=== PATIENT | male | born 1955 | race Caucasian/White ===

== ENCOUNTER 2021-09-21 00:31 | Day surgery (SDC) | payer MEDICARE, SELFPAY ==
[2021-09-01 13:59] VITALS: BMI 25.7
[2021-09-21 09:01] VITALS: BP 134/73; PULSE 68; RESP 16; TEMP 36.6; O2SAT 98; BMI 24.4
[2021-09-21] MEDS: LACTATED RINGERS 1,000 ML 150 ML IV CONT (09:13)
[2021-09-21 09:14] LABS: Glucose Point of Care 112 mg/dl (65-105)
--- NOTE | 2021-09-21 09:20 | WPDANESEPPF ---
Anes - Initial Pre Proc Eval Procedure: Operation Date: 09/21/21 09:30 Proposed Procedures p Esophagogastroduodenoscopy - Negro Baird MD Date/Time: 09/21/21 09:20 Surgeon: Negro Baird MD Pre Op Diagnosis: anemia, todd's esophagus Patient Data Age: 65 Gender: M Height: 1.83 m Weight: 81.8 kg Last Vital Signs Temp 36.6 C 09/21/21 09:01 Pulse 68 09/21/21 09:01 Resp 16 09/21/21 09:01 BP 134/73 09/21/21 09:01 Pulse Ox 98 09/21/21 09:01 Allergies Allergy/AdvReac Type Severity Reaction Status Date / Time No Known Allergies Allergy Verified 09/01/21 13:54 Home Medications Medication Instructions Recorded Confirmed Type aspirin 81 mg tablet,delayed 81 mg PO DAILY #90 tablet 04/14/20 09/01/21 Rx release metformin 500 mg tablet,extended 1,000 mg PO BID #180 tablet 05/10/21 09/01/21 Rx release 24 hr amlodipine 5 mg tablet 5 mg PO DAILY #90 tablet 07/11/21 09/01/21 Rx azelastine 137 mcg (0.1 %) nasal 2 spray NASAL Q12H #90 ml 07/11/21 09/01/21 Rx spray aerosol cholecalciferol (vitamin D3) 25 1,000 unit PO DAILY #90 cap 07/11/21 09/01/21 Rx mcg (1,000 unit) capsule cyanocobalamin (vitamin B-12) 1,000 mcg PO DAILY #90 tablet 07/11/21 09/01/21 Rx 1,000 mcg tablet metoprolol tartrate 50 mg tablet 50 mg PO Q12H #180 tablet 07/11/21 09/01/21 Rx nitroglycerin 0.4 mg sublingual 0.4 mg SUBLINGUAL Q5M PRN #90 07/11/21 09/01/21 Rx tablet tablet pantoprazole 40 mg tablet,delayed 40 mg PO QAM #90 tablet 07/11/21 09/01/21 Rx release ramipril 10 mg capsule 20 mg PO DAILY #180 cap 07/11/21 09/01/21 Rx rosuvastatin 10 mg tablet 10 mg PO DAILY #90 tablet 07/11/21 09/01/21 Rx potassium citrate 10 mEq (1,080 10 meq PO DAILY #100 tablet 07/12/21 09/01/21 Rx mg) tablet,extended release Laboratory Tests 09/21/21 09:11 POC Capillary Glucose 112 mg/dl H mg/dl (65-105) Patient hx anesthesia problems: none Family hx anesthesia problems: none Results Review: All pre-operative results and documents have been reviewed as part of the pre-operative evaluation. 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 angina Elevated PSA, less than 10 ng/ml Essential (primary) hypertension Mixed hyperlipidemia Nocturia Right lateral epicondylitis Seasonal allergic rhinitis Type 2 diabetes mellitus without complication, without long-term current use of insulin Family History Family History (Updated 03/03/19 @ 11:20 by DOCTOR UNKNOWN) Sibling Family history of malignant neoplasm, Onset Age: 43 Mother Family history of congestive heart failure, Onset Age: 78 Social History Social History (Updated 08/23/21 @ 15:08 by Yue Luna MA) Smoking status: Never smoker Alcohol intake: current Substance use: never Substance use type: does not use Living arrangements: with family Spiritual care concerns: No Anes - Eval Final PreProcedure Day of Procedure 09/21/21 09:20 Patient weight: normal Heart: regular rate and rhythm Lungs: clear to auscultation and normal air movement Airway: Mallampati scale class II Neurological: alert and oriented Last oral intake: >/= 8 hours ASA classification: III Emergent: no Anesthetic plan: proceed Anesthesia type and monitoring: general GIVS Results Review: All pre-operative results and documents have been reviewed as part of the pre-operative evaluation. Informed Consent: The patient's anesthetic plan and its attendant risks and benefits were discussed with the patient/family/POA. Questions were solicited and answers provided to the satisfaction of the patient/family/POA.
--- NOTE | 2021-09-21 09:22 | WPDGICN ---
Assessment and Plan Assessment and plan (1) Mcoky's esophagus: Code(s): K22.70 - Mckoy's esophagus without dysplasia Status: Acute Assessment and Plan: Mckoy's esophagus identified. Patient has no symptoms no dysphagia or heartburn currently. Plan to continue PPI therapy long-term. Surveillance EGD today and is advised at 3 year intervals. Further recommendations will be given after endoscopy. Previous endoscopies have revealed no dysplasia. GI Consult Note Consult date/time: 09/21/21 09:22 HPI: Alexey Gibbs is a 65 year old male Presents for surveillance EGD. Patient known to have Mckoy's esophagus. Is been 3 years since last exam. Patient's current weight appetite bowel movements are normal. He is able to eat without hindrance. He has no heartburn. He is currently maintained on PPI and has maintains anti-reflux measures. Presents today for screening EGD because of history of Mckoy's esophagus. Review of Systems Review of Systems: All systems reviewed & are unremarkable except as noted in HPI and below PMFSH Past Medical History Medical History (Updated 09/21/21 @ 09:23 by Negro Baird MD) Anemia Basal cell carcinoma, face (~08/23/21) 1.3 cm left face present for several months BMI 23.0-23.9, adult CAD of autologous artery bypass graft without angina Elevated PSA, less than 10 ng/ml Essential (primary) hypertension Mixed hyperlipidemia Nocturia Right lateral epicondylitis Seasonal allergic rhinitis Type 2 diabetes mellitus without complication, without long-term current use of insulin Family History Family History (Updated 03/03/19 @ 11:20 by DOCTOR UNKNOWN) Sibling Family history of malignant neoplasm, Onset Age: 43 Mother Family history of congestive heart failure, Onset Age: 78 Social History Social History (Updated 08/23/21 @ 15:08 by Yue Luna MA) Smoking status: Never smoker Alcohol intake: current Substance use: never Substance use type: does not use Living arrangements: with family Spiritual care concerns: No Meds Home Medications and Allergies Home Medications Medication Instructions Recorded Confirmed Type aspirin 81 mg tablet,delayed 81 mg PO DAILY #90 tablet 04/14/20 09/01/21 Rx release metformin 500 mg tablet,extended 1,000 mg PO BID #180 tablet 05/10/21 09/01/21 Rx release 24 hr amlodipine 5 mg tablet 5 mg PO DAILY #90 tablet 07/11/21 09/01/21 Rx azelastine 137 mcg (0.1 %) nasal 2 spray NASAL Q12H #90 ml 07/11/21 09/01/21 Rx spray aerosol cholecalciferol (vitamin D3) 25 1,000 unit PO DAILY #90 cap 07/11/21 09/01/21 Rx mcg (1,000 unit) capsule cyanocobalamin (vitamin B-12) 1,000 mcg PO DAILY #90 tablet 07/11/21 09/01/21 Rx 1,000 mcg tablet metoprolol tartrate 50 mg tablet 50 mg PO Q12H #180 tablet 07/11/21 09/01/21 Rx nitroglycerin 0.4 mg sublingual 0.4 mg SUBLINGUAL Q5M PRN #90 07/11/21 09/01/21 Rx tablet tablet pantoprazole 40 mg tablet,delayed 40 mg PO QAM #90 tablet 07/11/21 09/01/21 Rx release ramipril 10 mg capsule 20 mg PO DAILY #180 cap 07/11/21 09/01/21 Rx rosuvastatin 10 mg tablet 10 mg PO DAILY #90 tablet 07/11/21 09/01/21 Rx potassium citrate 10 mEq (1,080 10 meq PO DAILY #100 tablet 07/12/21 09/01/21 Rx mg) tablet,extended release Allergies Allergy/AdvReac Type Severity Reaction Status Date / Time No Known Allergies Allergy Verified 09/01/21 13:54 Vital Signs Vital Signs - 24 hr 09/21/21 09:01 Temperature 97.9 F Pulse Rate 68 Respiratory Rate 16 Blood Pressure 134/73 Pulse Oximetry 98 Exam Narrative: Physical exam reveals patient be alert. Vital signs stable. HEENT exam is unremarkable. Patient is anicteric. Lungs are clear to auscultation and percussion. Heart is without murmur or extra sounds. Abdomen bowel sounds are present soft nontender with no organomegaly.
[2021-09-21 09:43] VITALS: BP 103/64; PULSE 60; RESP 14; O2SAT 99
[2021-09-21 09:53] VITALS: BP 112/72; PULSE 61; RESP 15; O2SAT 100
[2021-09-21 10:03] VITALS: BP 117/74; PULSE 55; RESP 12; O2SAT 100
== END 2021-09-21 10:16 | disposition home or self-care (01) ==
PROVIDERS: PCP Family Medicine; Visit Provider Internal Medicine Gastroenterology
PROC: 0DJ08ZZ Inspection of Upper Intestinal Tract, Via Natural or Artificial Opening Endoscopic (ICD-10-PCS; CPT 43235; principal; 2021-09-21 09:30)
DX: K22.70 Barrett's esophagus without dysplasia (principal); D64.9 Anemia, unspecified; I10 Essential (primary) hypertension; E78.2 Mixed hyperlipidemia; E11.9 Type 2 diabetes mellitus without complications; I25.810 Atherosclerosis of coronary artery bypass graft(s) without angina pectoris; Z79.82 Long term (current) use of aspirin; Z79.84 Long term (current) use of oral hypoglycemic drugs
CPT/HCPCS: 43239; 82948; 88305; J2704; J7120

== ENCOUNTER 2024-11-02 00:33 | Day surgery (SDC) | payer MEDICARE, SELFPAY ==
[2024-10-20 15:01] VITALS: BMI 25.4
[2024-11-02 06:50] VITALS: BP 137/66; PULSE 65; RESP 18; TEMP 36.1; O2SAT 97
--- NOTE | 2024-11-02 06:53 | P.PNAN_ITS ---
Anes - Initial Pre Proc Eval Procedure: Operation Date: 11/02/24 08:00 Proposed Procedures p Esophagogastroduodenoscopy - Thaddeus Garcia MD Date/Time: 11/02/24 06:53 Surgeon: Thaddeus Garcia MD Pre Op Diagnosis: Mckoy's esophagus w/o dysplasia Patient Data Age: 69 Gender: M Height: 1.83 m Weight: 84.5 kg Last Vital Signs Temp 36.1 C L 11/02/24 06:50 Pulse 65 11/02/24 06:50 Resp 18 11/02/24 06:50 BP 137/66 11/02/24 06:50 Pulse Ox 97 11/02/24 06:50 O2 Del Method Room Air 11/02/24 06:50 Allergies Allergy/AdvReac Type Severity Reaction Status Date / Time No Known Allergies Allergy Verified 11/02/24 06:47 Home Medications ?Medication ?Instructions ?Recorded ?Confirmed ?Type aspirin 81 mg tablet,delayed 81 mg PO DAILY #90 tabs 04/14/20 11/02/24 Rx release (Adult Low Dose Aspirin) cyanocobalamin (vitamin B-12) 1,000 mcg PO DAILY #90 tabs 07/11/21 11/02/24 Rx 1,000 mcg tablet nitroglycerin 0.4 mg sublingual 0.4 mg sublingual Q5M PRN chest 07/11/21 10/21/24 Rx tablet pain #90 tabs rosuvastatin 20 mg tablet 20 mg PO DAILY 06/18/22 11/02/24 History cholecalciferol (vitamin D3) 125 5,000 unit PO DAILY #90 caps 02/27/23 11/02/24 Rx mcg (5,000 unit) capsule finasteride 5 mg tablet 5 mg PO DAILY 09/11/23 11/02/24 History metoprolol tartrate 50 mg tablet 50 mg PO Q12H #180 tabs 09/30/23 11/02/24 Rx metformin 500 mg tablet,extended 1,000 mg (2 x 500 mg) PO BID #360 01/06/24 11/02/24 Rx release 24 hr tabs potassium citrate 10 mEq (1,080 10 meq PO DAILY #90 tabs 02/03/24 11/02/24 Rx mg) tablet,extended release amlodipine 5 mg tablet 5 mg PO DAILY #90 tabs 05/04/24 11/02/24 Rx azelastine 137 mcg (0.1 %) nasal 2 spray intranasal Q12H #90 mL 05/04/24 11/02/24 Rx spray pantoprazole 40 mg tablet,delayed 40 mg PO QAM #90 tabs 05/04/24 11/02/24 Rx release ramipril 10 mg capsule 10 mg PO BID #180 caps 10/21/24 11/02/24 Rx Patient hx anesthesia problems: none Family hx anesthesia problems: none Results Review: All pre-operative results and documents have been reviewed as part of the pre- operative evaluation. [facility] Past Medical History Medical History (Updated 10/21/24 @ 14:56 by John Lozoya MD) Actinic keratosis BMI 26.0-26.9,adult Overweight (BMI 25.0-29.9) At low risk for fall Encounter for hepatitis C screening test for low risk patient (09/05/23) hepatitis C screening was 09/05/23. BMI 24.0-24.9, adult Acute non-recurrent maxillary sinusitis (08/16/22) Prostate cancer (~02/2022) Robotic assisted prostatectomy 05/01/2022. PSA 0.14 on 05/25/2024. Iron deficiency anemia, unspecified iron 47 with 15% saturation and ferritin 31 on 02/19/2022 with hemoglobin 12.8. Repeat labs on 06/19/2022 with hemoglobin 12.2, iron 88 with 32% saturation and ferritin 41. Return 74, 25% saturation, ferritin 31 and hem oglobin 12.7 on 08/28/2022. Iron 57 with 20% saturation and ferritin 31 with hemoglobin 12.5 on 02/21/2023.Iron 70 with 24% saturation and ferritin 22 on 09/05/2023. Iron 63 with 19% saturation and ferritin 25 with hemoglobin 12.7 on 10/08/2024. Squamous cell carcinoma of skin of left cheek (~08/24/21) 1.3 cm ulcerated lesion present for several months left face with punch biopsy 08/25/2021 and excision with clear margins 09/26/[address] Cantu Mckoy's esophagus BMI 23.0-23.9, adult Anemia Hemoglobin 12.8, iron 47, 15% saturation, ferritin 31, vitamin B12 1444, folic acid 18.6 on 02/19/2022. Hemoglobin 12.7 on 08/28/2022 with vitamin B12 1444, folic acid 18.6. Hemoglobin 12.5 on 02/21/2023 with iron 57 with 20% saturation and ferritin 31 with folic acid 12.0. Hemoglobin 12.5 09/05/2023. Hemoglobin 12.5 on 03/12/2024. Hemoglobin 12.7 with vitamin B12 1585 and folic acid 15.6 on 10/08/2024. 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 Tota l cholesterol 122, HDL 44, triglycerides 78, LDL 44 on 08/28/2022. Total cholesterol 121, triglycerides 85, HDL 40, LDL 46 with ratio 3.1 on 12/26/2022. Cholesterol 121, HDL 41, triglycerides 61, LDL 66 On 02/21/2023. Cholesterol 124, HDL 40, triglycerides 102, LDL 65 with ratio 3.1 on 09/05/2023. Cholesterol 107, HDL 41, triglycerides 56, LDL 52 with ratio 2.6 on 03/12/2024. Cholesterol 112, triglycerides 97, HDL 37, LDL 57 with ratio 3.0 on 10/08/2024. Type 2 diabetes mellitus without complication, without long-term current use of insulin Glucose 112 with hemoglobin A1c 6.7 on 02/19/2022. Glucose 114 with hemoglobin A1c 6.8 and urine microalbumin ratio of 11 on 08/28/2022. 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 glucose 118 with hemoglobin A1c 6.7 on 02/21/2023. Glucose 116 with hemoglobin A1c 6.8 and urine microalbumin ratio of 6 on 09/05/2023. fasting glucose 123 with hemoglobin A1c 7.0 on 03/12/2024. Glucose 126, hemoglobin A1c 7.2 with urine microalbumin ratio of 6 and GFR 51 on 10/08/2024. Surgical History Surgical History (Updated 11/02/24 @ 07:12 by Guido Shrestha DO) History of coronary artery stent placement 2008 Hx of CABG 2012 Family History Family History (Updated 03/03/19 @ 11:20 by DOCTOR UNKNOWN) Sibling Family history of malignant neoplasm, Onset Age: 43 Mother Family history of congestive heart failure, Onset Age: 78 Social History Social History Smoking status: Never smoker Alcohol intake: current Alcohol use details: rare Substance use: never Substance use type: does not use Lack of Transportation: No Lack of Food: Never True Current Housing: I Have Housing Concerned About Future Housing: No Difficulty Paying Gas/Electric Bills: No Difficulty Paying for Meds: No Currently Unemployed: No Education: High School Diploma/GED Difficulty w/ Childcare or Family Care: No Living arrangements: with family Spiritual care concerns: No Anes - Eval Final PreProcedure Day of Procedure 11/02/24 06:53 Patient weight: overweight Heart: regular rate and rhythm Lungs: clear to auscultation Airway: Mallampati scale class II Neurological: alert and oriented Last oral intake: >/= 8 hours ASA classification: III Emergent: no Anesthetic plan: proceed Anesthesia type and monitoring: general GIVS and standard monitoring Results Review: All pre-operative results and documents have been reviewed as part of the pre- operative evaluation. Informed Consent: The patient's anesthetic plan and its attendant risks and benefits were discuss ed with the patient/family/POA. Questions were solicited and answers provided to the satisfaction of the patient/family/POA.
[2024-11-02] MEDS: LACTATED RINGERS 1,000 ML 150 ML IV CONT (07:00)
[2024-11-02 07:08] LABS: Glucose Point of Care 113 mg/dl (65-105)
--- NOTE | 2024-11-02 07:30 | PM.IMHP ---
H&P: HPI History of Present Illness Date/Time: 11/02/24 07:30 Chief Complaint: Mckoy's esophagus Narrative: Patient known to have Mckoy's esophagus. Last EGD 3 years ago. Patient's current weight appetite bowel movements are normal. He is currently taking PPIs, has no heartburn or dysphagia. Review of Systems Review of Systems: All systems reviewed & are unremarkable except as noted in HPI and below [facility] Past Medical History Medical History (Updated 10/21/24 @ 14:56 by John Lozoya MD) Actinic keratosis BMI 26.0-26.9,adult Overweight (BMI 25.0-29.9) At low risk for fall Encounter for hepatitis C screening test for low risk patient (09/05/23) hepatitis C screening was 09/05/23. BMI 24.0-24.9, adult Acute non-recurrent maxillary sinusitis (08/16/22) Prostate cancer (~02/2022) Robotic assisted prostatectomy 05/01/2022. PSA 0.14 on 05/25/2024. Iron deficiency anemia, unspecified iron 47 with 15% saturation and ferritin 31 on 02/19/2022 with hemoglobin 12.8. Repeat labs on 06/19/2022 with hemoglobin 12.2, iron 88 with 32% saturation and ferritin 41. Return 74, 25% saturation, ferritin 31 and hemoglobin 12.7 on 08/28/2022. Iron 57 with 20% saturation and ferritin 31 with hemoglobin 12.5 on 02/21/2023.Iron 70 with 24% saturation and ferritin 22 on 09/05/2023. Iron 63 with 19% saturation and ferritin 25 with hemoglobin 12.7 on 10/08/2024. Squamous cell carcinoma of skin of left cheek (~08/24/21) 1.3 cm ulcerated lesion present for several months left face with punch biopsy 08/25/2021 and excision with clear margins 09/26/[address] Cantu Mckoy's esophagus BMI 23.0-23.9, adult Anemia Hemoglobin 12.8, iron 47, 15% saturation, ferritin 31, vitamin B12 1444, folic acid 18.6 on 02/19/2022. Hemoglobin 12.7 on 08/28/2022 with vitamin B12 1444, folic acid 18.6. Hemoglobin 12.5 on 02/21/2023 with iron 57 with 20% saturation and ferritin 31 with folic acid 12.0. Hemoglobin 12.5 09/05/2023. Hemoglobin 12.5 on 03/12/2024. Hemoglobin 12.7 with vitamin B12 1585 and folic acid 15.6 on 10/08/2024. 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 Total cholesterol 122, HDL 44, triglycerides 78, LDL 44 on 08/28/2022. Total cholesterol 121, triglycerides 85, HDL 40, LDL 46 with ratio 3.1 on 12/26/2022. Cholesterol 121, HDL 41, triglycerides 61, LDL 66 On 02/21/2023. Cholesterol 124, HDL 40, triglycerides 102, LDL 65 with ratio 3.1 on 09/05/2023. Cholesterol 107, HDL 41, triglycerides 56, LDL 52 with ratio 2.6 on 03/12/2024. Cholesterol 112, triglycerides 97, HDL 37, LDL 57 with ratio 3.0 on 10/08/2024. Type 2 diabetes mellitus without complication, without long-term current use of insulin Glucose 112 with hemoglobin A1c 6.7 on 02/19/2022. Glucose 114 with hemoglobin A1c 6.8 and urine microalbumin ratio of 11 on 08/28/2022. 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 glucose 118 with hemoglobin A1c 6.7 on 02/21/2023. Glucose 116 with hemoglobin A1c 6.8 and urine microalbumin ratio of 6 on 09/05/2023. fasting glucose 123 with hemoglobin A1c 7.0 on 03/12/2024. Glucose 126, hemoglobin A1c 7.2 with urine microalbumin ratio of 6 and GFR 51 on 10/08/2024. Surgical History Surgical History (Updated 11/02/24 @ 07:12 by Guido Shrestha DO) History of coronary artery stent placement 2008 Hx of CABG 2012 Family History Family History (Updated 03/03/19 @ 11:20 by DOCTOR UNKNOWN) Sibling Family history of malignant neoplasm, Onset Age: 43 Mother Family history of congestive heart failure, Onset Age: 78 Social History Social History Smoking status: Never smoker Alcohol intake: current Alcohol use details: rare Substance use: never Substance use type: does not use Lack of Transportation: No Lack of Food: Never True Current Housing: I Have Housing Concerned About Future Housing: No Difficulty Paying Gas/Electric Bills: No Difficulty Paying for Meds: No Currently Unemployed: No Education: High School Diploma/GED Difficulty w/ Childcare or Family Care: No Living arrangements: with family Spiritual care concerns: No Meds Home Medications and Allergies Home Medications ?Medication ?Instructions ?Recorded ?Confirmed ?Type aspirin 81 mg tablet,delayed 81 mg PO DAILY #90 tabs 04/14/20 11/02/24 Rx release (Adult Low Dose Aspirin) cyanocobalamin (vitamin B-12) 1,000 mcg PO DAILY #90 tabs 07/11/21 11/02/24 Rx 1,000 mcg tablet nitroglycerin 0.4 mg sublingual 0.4 mg sublingual Q5M PRN chest 07/11/21 10/21/24 Rx tablet pain #90 tabs rosuvastatin 20 mg tablet 20 mg PO DAILY 06/18/22 11/02/24 History cholecalciferol (vitamin D3) 125 5,000 unit PO DAILY #90 caps 02/27/23 11/02/24 Rx mcg (5,000 unit) capsule finasteride 5 mg tablet 5 mg PO DAILY 09/11/23 11/02/24 History metoprolol tartrate 50 mg tablet 50 mg PO Q12H #180 tabs 09/30/23 11/02/24 Rx metformin 500 mg tablet,extended 1,000 mg (2 x 500 mg) PO BID #360 01/06/24 11/02/24 Rx release 24 hr tabs potassium citrate 10 mEq (1,080 10 meq PO DAILY #90 tabs 02/03/24 11/02/24 Rx mg) tablet,extended release amlodipine 5 mg tablet 5 mg PO DAILY #90 tabs 05/04/24 11/02/24 Rx azelastine 137 mcg (0.1 %) nasal 2 spray intranasal Q12H #90 mL 05/04/24 11/02/24 Rx spray pantoprazole 40 mg tablet,delayed 40 mg PO QAM #90 tabs 05/04/24 11/02/24 Rx release ramipril 10 mg capsule 10 mg PO BID #180 caps 10/21/24 11/02/24 Rx Allergies Allergy/AdvReac Type Severity Reaction Status Date / Time No Known Allergies Allergy Verified 11/02/24 06:47 Vital Signs Vital Signs - 24 hr 11/02/24 06:50 Temperature 97 F L Pulse Rate 65 Respiratory Rate 18 Blood Pressure 137/66 Pulse Oximetry 97 Oxygen Delivery Room Air Exam Const: General: cooperative and healthy appearing Resp: Effort & Inspection: normal respiratory effort and able to speak in complete sentences Auscultation: clear to auscultation bilaterally Cardio: Rate: regular rate Rhythm: regular rhythm GI: Inspection: normal to inspection GI Palp: No No hepatosplenomegaly present Auscultation: normal bowel sounds Rectal Exam: deferred Skin: General skin exam: normal color Psych: Appearance: grossly normal Mental Status: mental status grossly normal Assessment and Plan Assessment and plan (1) Mckoy's esophagus with low grade dysplasia: Code(s): K22.710 - Mckoy's esophagus with low grade dysplasia Status: Acute
[2024-11-02 08:21] VITALS: BP 116/70; PULSE 63; RESP 14; O2SAT 100
[2024-11-02 08:31] VITALS: BP 124/72; PULSE 60; RESP 21; O2SAT 96
[2024-11-02 08:41] VITALS: BP 134/74; PULSE 57; RESP 22; O2SAT 98
--- OUTSIDE RECORDS SUMMARY | 2024-11-07 09:27 | XMS_ITS | Encounter Summary ---
Author Organization [facility] Address [address] [place] [address] Phone Care Team Providers Care Application Infrastructure Engineer Name Role Phone John Lozoya MD Primary Care Provider [phone] Encounter Details Date Type Department Care Team (Late st Contact Info) Description 07/26/2023 Orders Only [facility] ([facility]) - [facility] Urology [address] Advanced [facility] [address] [place] [address] [place] [address] Armen Rodrigues MD [address] [place] [address] Benign prostatic hyperplasia without lower urinary tract symptoms Social History Tobacco Use Types Packs/Day Years Used Date Smoking Tobacco: Never Smokeless Tobacco: Never AUDIT-C Answer Date Recorded Q1: How often do you have a drink containing alc ohol? Monthly or less 03/14/2023 Q2: How many drinks containi ng alcohol do you have on a typical day when you are drinking? 1 or 2 03/14/2023 Q3: How often do you have si x or more drinks on one occasion? Never 03/14/2023 Personal Safety Answer Date Recorded Have you ever been in or are you currently in a harmful physical or emotional relationship or is someone making you feel afraid or unsafe? 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 Spoke with patient and confirmed. documented in this encounter Plan of Treatment Not on file documented as of this encounter Visit Diagnoses Diagnosis Benign prostatic hyperplasia without lower urinary tract symptoms documented in this encounter Discontinued Medications Medication Sig Discontinue Reason Start Date End Da te finasteride (PROSCAR) 5 mg tabletIndications:Benign prostatic hyperplasia without lower urinary tract symptoms Take 1 tablet (5 mg total) by mouth daily Reorder 06/18/2023 07/26/2023 documented as of this encounter Care Teams Application Infrastructure Engineer Relationship Specialty Start Date End Date John Lozoya MD [address] [address] PCP - General Family Medicine 04/03/22 documented as of this encounter
--- OUTSIDE RECORDS SUMMARY | 2024-11-07 09:27 | XMS_ITS | Encounter Summary ---
Author Organization 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
--- OUTSIDE RECORDS SUMMARY | 2024-11-07 09:27 | XMS_ITS | Encounter Summary ---
Author Organization [facility] [employer] [facility] Address [address] [place] [address] Phone Care Team Providers Care Register In Chancery Name Role Phone John Lozoya MD Primary Care Provider [phone] [phone] Encounter Details Date Type Department Care Team (Late st Contact Info) Description 05/08/2022 Telephone [facility] ([facility] - [facility] Urology [address] [facility] Advanced Medicine 11th [place] [address] [place] [address] Shaye Marte CNA Social History Tobacco Use Types Packs/Day Years Used Date Smoking Tobacco: Never AUDIT-C Answer Date Recorded Q1: How often do you have a drink containing alc ohol? 2-4 times a month 04/27/2022 Q2: How many drinks containi ng alcohol do you have on a typical day when you are drinking? 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 Pt requested [facility] [place]. Need results before 06/11 tele visit * Telephone Encounter - Shaye Marte CNA - 05/08/2022 4:20 PM CDT ----- Message from Armen Rodrigues MD sent at 05/08/2022 4:06 PM CDT ----- Yes. [facility] or [facility] would be OK as a standing order. I am also happy to order / arrange when I speak to him. ----- Message ----- From: Shaye Marte CNA Sent: 05/08/2022 3:47 PM CDT To: LUISTIO Allison, Armen Rodrigues MD Spoke to patient, 4-6 week post op tele visit scheduled 06/11 8:40 am- Pt wants to know if you want him to have a PSA test prior to this? ----- Message ----- From: Armen Rodrigues MD Sent: 05/08/2022 3:25 PM CDT To: LUISITO Allison, # Could we set him up for a follow-up in 4-6 weeks? Phone/virtual is better for this patient. Thank you! - EK documented in this encounter Plan of Treatment Not on file documented as of this encounter Visit Diagnoses Not on filedocumented in this encounter Care Teams Register In Chancery Relationship Specialty Start Date End Date John Lozoya MD [address] [address] PCP - General Family Medicine 04/03/22 documented as of this encounter
--- OUTSIDE RECORDS SUMMARY | 2024-11-07 09:27 | XMS_ITS | Encounter Summary ---
Author Organization [facility] [employer] [facility] Address [address] [place] [address] Phone Care Team Providers Care Underground Supervisor Name Role Phone John Lozoya MD Primary Care Provider [phone] [phone] Encounter Details Date Type Department Care Team (Late st Contact Info) Description 05/08/2022 Orders Only [facility] ([facility]) - [facility] Urology [address] [facility] Advanced Medicine 11th [place] [address] [place] [address] Armen Rodrigues MD [address] [place] [address] Prostate cancer (CMS/HCC) (HCC) (Primary Dx) Social History Tobacco Use Types Packs/Day Years [...] on file 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 The test result will be approximately 20% lower when compared to the equimolar-standardized total PSA (Kevin Jessie). Comparison of serial PSA results should be interpreted with this fact in mind. This test was performed using the Siemens chemiluminescent method. Values obtained from different assay methods cannot be used interchangeably. PSA levels, regardless of value, should not be interpreted as absolute evidence of the presence or absence of disease. Blood specimen (specimen) 05/29/2022 7:35 AM CDT 05/29/2022 7:35 AM CDT us Armen Rodrigues MD LAB BLOOD ORDERABLES Final Resu lt [facility] [address] [place] [address] documented in this encounter Visit Diagnoses Diagnosis Prostate cancer (HCC)- Primary Malignant neoplasm of prostate documented in this encounter Care Teams Underground Supervisor Relationship Specialty Start Date End Date John Lozoya MD [address] [address] PCP - General Family Medicine 04/03/22 documented as of this encounter
--- OUTSIDE RECORDS SUMMARY | 2024-11-07 09:27 | XMS_ITS | Encounter Summary ---
Author Organization [facility] [employer] [facility] Address [address] [place] [address] Phone Care Team Providers Care Railroad Signal Technician Name Role Phone John Lozoya MD Primary Care Provider [phone] [phone] Reason for Visit * Reason Comments Prostate Cancer s/p RALP 04/2022. PSA 05/25/24=0.14 * Consultation (Routine) - Closed Specialty Diagnoses / Procedures Referred By Contluly t Referred To Contact Urology Diagnoses Bladder stone John Lozoya MD [address] [address] Phone: tel: fax: [facility] (All Locations) Referral ID Status Reason Start Date Expiration Date V isits Requested Visits Authorized [id number] Closed Specialty Services Required 06/03/2023 07/02/2024 99 99 Encounter Details Date Type Department Care Team (Late st Contact Info) Description 05/29/2024 8:00 AM CDT Office Visit [facility] Urology [address] [facility] [address] [place] [address] Robin Reese MD [address] [facility] [phone] [place] [address] Prostate cancer (HCC) (Primary Dx); Bladder stone Social History Tobacco Use Types Packs/Day Years [...] on file 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 male. S/p RALP 2021 Final path T2, 5mm margin PSMA PET negative 02/2023 Started finasteride 02/2023 Erections every morning Rarely leaks Happy overall. Chief Complaint No chief complaint on file. Follow-up for prostate cancer. Prostatectomy in 2021. Good control. Satisfactory sexual function. On finasteride. PSA stable 0.14. Review of Systems Constitutional: Negative for chills, fever and unexpected weight change. Respiratory: Negative for shortness of breath. Gastrointestinal: Negative for abdominal distention, abdominal pain, nausea and vomiting. Genitourinary: Negative for difficulty urinating, dysuria, flank pain, frequency, hematuria and urgency. PSA 0.14 on 05/25/2024 Assessment/Plan Diagnoses and all orders for this visit: Prostate cancer (HCC) (C61) (Primary) Comments: s/p RALP 04/2022. PSA 05/25/24=0.14 - offered radiation/oncology consult, however, patient wants to hold off for now - continue to trend PSA every 3-6 months - continue on finasteride - would pursue PSMA PET re-imaging if PSA begins to rise - follow up with phone visit in one year. documented in this encounter Plan of Treatment Scheduled Orders Name Type Priority Associated Diagnoses Orde r Schedule PSA, total and free Lab Routine Prostate cancer (HCC) 4 Occurrences starting 05/29/2024 until 11/29/2025, 1 completed documented as of this encounter Procedures Procedure Name Priority Date/Time Associated Diagnosis Comments PSA, TOTAL AND FREE Routine 09/10/2024 7 :06 AM CDT Prostate cancer (HCC) documented in this encounter Results * PSA, total and free (09/10/2024 7:06 AM CDT) PSA 0.2 < OR = 4.0 ng/mL [facility] PSA, free <0.1 ng/mL [facility] PSA, free UNABLE TO CALCULATE >25 % (calc) [facility] Comment: The free PSA level is below detectable limits. We are unable to calculate a % free PSA. PSA(ng/mL) ?Free PSA(%) ? Estimated(x) Probability ? of Cancer(as%) 0-2.5 ?(*) ? Approx. 1 2.6-4.0(1) ? 0-27(2) ? 24(3) 4.1-10(4) ?0-10 ?56 ? 11-15 ? 28 ? 16-20 ? 20 ? 21-25 ? 16 ? >or =26 ? 8 >10(+) ? N/A ?>50 References:(1)Rosita.:Urology 60: 469-474 (2002) ? (2)Rosita.:J.Urol 168: 922-925 (2002) ?Free PSA(%) ?? Sensitivity(%) ??Specificity(%) ?< or = 25 ?85 ?19 ?< or = 30 ?93 ? 9 ? (3)Sandra et al.:DREAD 277: 2516-7478 (1996) ? (4)Sandra et al.:DREAD 279: 5700-1994 (1997) (x)These estimates vary with age, ethnicity, family ?? history and DAVE results. (*)The diagnostic usefulness of % Free PSA has not been ?? established in patients with total PSA below 2.6 ng/mL (+)In men with PSA above 10 ng/mL, prostate cancer risk is ?? determined by total PSA alone. The Total PSA value from this assay system is standardized against the equimolar PSA standard. The test result will be approximately 20% higher when compared to the WHO-standardized Total PSA (Siemens assay). Comparison of serial PSA results should be interpreted with this fact in mind. PSA was performed using the Kevin Jessie Immunoassay method. Values obtained from different assay methods cannot be used interchangeably. PSA levels, regardless of value, should not be interpreted as absolute evidence of the presence or absence of disease. Blood 09/10/2024 7:06 AM CDT 09/10/2024 7:07 AM CDT Narrative [facility] - 09/14/2024 5:09 PM CDT FASTING:YES FASTING: YES us Robin Reese MD LAB BLOOD ORDERABLES Citlaly l Result [facility] [address] [place] [address] documented in this encounter Visit Diagnoses Diagnosis Prostate cancer (HCC)- Primary Malignant neoplasm of prostate Bladder stone Other calculus in bladder documented in this encounter Orders Outpatient Referral Count Last Ordered Date Fir st Ordered Date AMB REFERRAL TO UROLOGY 1 05/29/2024 documented in this encounter Care Teams Railroad Signal Technician Relationship Specialty Start Date End Date John Lozoya MD [address] [address] PCP - General Family Medicine 04/03/22 documented as of this encounter
--- OUTSIDE RECORDS SUMMARY | 2024-11-07 09:27 | XMS_ITS | Encounter Summary ---
Author Organization [facility] [employer] [facility] Address [address] [place] [address] Phone Care Team Providers Care Sugar Cane Grower Name Role Phone John Lozoya MD Primary Care Provider [phone] [phone] Encounter Details Date Type Department Care Team (Late st Contact Info) Description 09/02/2024 Orders Only [facility] Urology [address] [facility] Medical Office [address] [place] [address] Robin Reese MD [address] [facility] [id number] [address] Benign prostatic hyperplasia without lower urinary tract [...] on file 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 Gender Identity Not on file Sexual Orientation Not on file documented as of this encounter Ordered Prescriptions Prescription Sig Dispense Quantity Refills Last Filled Start Date End Date finasteride (PROSCAR) 5 mg tabletIndications: Benign prostatic hyperplasia without lower urinary tract symptoms Take 1 tablet (5 mg total) by mouth daily 30 tablet 11 09/02/2024 08/28/2025 documented in this encounter Plan of Treatment Not on file documented as of this encounter Visit Diagnoses Diagnosis Benign prostatic hyperplasia without lower urinary tract symptoms documented in this encounter Discontinued Medications Medication Sig Discontinue Reason Start Date End Da te finasteride (PROSCAR) 5 mg tabletIndications:Benign prostatic hyperplasia without lower urinary tract symptoms Take 1 tablet (5 mg total) by mouth daily Reorder 07/26/2023 09/02/2024 documented as of this encounter Care Teams Sugar Cane Grower Relationship Specialty Start Date End Date John Lozoya MD [address] [address] PCP - General Family Medicine 04/03/22 documented as of this encounter
--- OUTSIDE RECORDS SUMMARY | 2024-11-07 09:27 | XMS_ITS | Encounter Summary ---
Author Organization [facility] [employer] [facility] Address [address] [place] [address] Phone Care Team Providers Care Winder Operator Name Role Phone John Lozoya MD Primary Care Provider [phone] [phone] Encounter Details Date Type Department Care Team (Late st Contact Info) Description 03/14/2023 Orders Only [facility] Urology [address] [facility] [address] [place] [address] Lam Aviles MD [address] [facility], [facility] [address] [place] [address] Social History Tobacco Use Types Packs/Day Years [...] on file 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 Gender Identity Not on file Sexual Orientation Not on file documented as of this encounter Ordered Prescriptions Prescription Sig Dispense Quantity Refills Last Filled Start Date End Date phenazopyridine (PYRIDIUM) 100 mg tablet Take 1 tablet (100 mg total) by mouth 3 (three) times a day as needed for urinary pain (pain with urination) 30 tablet 03/14/2023 documented in this encounter Plan of Treatment Not on file documented as of this encounter Visit Diagnoses Not on filedocumented in this encounter Discontinued Medications Medication Sig Discontinue Reason Start Date End Da te phenazopyridine (PYRIDIUM) 100 mg tablet Take 1 tablet (100 mg total) by mouth 3 (three) times a day as needed for urinary pain (pain with urination) Reorder 03/14/2023 03/14/2023 documented as of this encounter Care Teams Winder Operator Relationship Specialty Start Date End Date John Lozoya MD [address] [address] PCP - General Family Medicine 04/03/22 documented as of this encounter
--- OUTSIDE RECORDS SUMMARY | 2024-11-07 09:27 | XMS_ITS | Encounter Summary ---
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 Name Role Phone John Lozoya MD Primary Care Provider [phone] Reason for Visit * Auth/Cert (Routine) Specialty Diagnoses / Procedures Referred By Contac t Referred To Contact Diagnoses Bladder stone Bladder stone [N21.0] Procedures [place] CYSTOSCOPY,REMV URETERAL STONE LASER - LITHOTRIPSY - THULIUM CYSTOLITHOPAXY Referral ID Status Reason Start Date Expiration Date Visits Re quested Visits Authorized [id number] 1 1 Encounter Details Date Type Department Care Team (Late st Contact Info) Description 03/14/2023 5:19 AM CDT - 03/14/2023 9:05 AM CDT Hospital Encounter [facility] Operating Room [id number] [place] [id number] Lam Aviles MD [address] [facility] [facility] [address] [place] [address] Bladder stone Discharge Disposition: Discharge to home or self care Social History Tobacco Use Types Packs/Day Years Used Date Smoking Tobacco: Never Smokeless Tobacco: Never Tobacco Cessation:Counseling Given: Not Answered AUDIT-C Answer Date Recorded Q1: How often [...] on file 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 Gender Identity Not on file Sexual Orientation Not on file documented as of this encounter Last Filed Vital Signs Vital Sign Reading Time Taken Comments Blood Pressure 139/78 03/14/2023 8:50 AM CDT Pulse 74 03/14/2023 8:50 AM CDT Temperature 35.7 ??C (96.3 ??F) 03/14/2023 8:50 AM CD T Respiratory Rate 9 03/14/2023 8:50 AM CDT Oxygen Saturation 96% 03/14/2023 8:50 AM CDT Inhaled Oxygen Concentration - - Weight 81.6 kg (180 lb) 03/05/2023 3:55 PM CDT Height 182.9 cm (6') 03/05/2023 3:55 PM CDT Body Mass Index 24.41 03/05/2023 3:55 PM CDT documented in this encounter Discharge Instructions * Discharge Instructions* Teresa Rain RN - 03/14/2023 8:26 AM CDT You have received anesthesia, therefore, for the next 24 hours and/or while taking narcotic pain medication; -Do NOT drive a vehicle -Do NOT drink alcohol -Do NOT make important personal or business decisions or sign legal documents. Examples of narcotic pain medication include Percocet, Oxycontin, [place], Hydrocodone, and Oxycodone. FAQs (frequently asked questions) about Surgical Site Infections What is a Surgical Site Infection (SSI)? A surgical site infection is and infection that occurs after surgery in the part of the body where the surgery took place. Most patients who have surgery do not develop an infection. However, infections develop in about 1 to 3 out of every 100 patients who have surgery. Some of the common symptoms fo a surgical site infection are: Redness and pain around the area where you had surgery Drainage of cloudy fluid from your surgical wound Fever Can SSIs be treated? Yes. Most surgical site infections can be treated with antibiotics. The antibiotic given to you depends on the bacteria (germs) causing the infection. Sometimes patients with SSIs causing the infection. Sometimes patients with SSIs also need another surgery to treat the infection. What are some of the things that hospitals are doing to prevent SSIs? To prevent SSIs, doctors, nurses, and other healthcare providers: Clean their hands and arms up to their elbows with an antiseptic agent just before the surgery. Clean their hands with soap and water or an alcohol-based hand rub before and after caring for eachpatient. May remove some of your hair immediately before your surgery using electric clippers if the hair isin the same area where the procedure will occur. They should not shave you with a razor. Wear special hair covers, masks, gowns, and gloves during surgery to keep the surgery area clean. Give you antibiotics before your surgery starts. In most cases, you should get antibiotics within 60 minutes before the surgery starts and the antibiotics should be stopped within 24 hours after surgery. Clean the skin at the site of your surgery with a special soap that kills germs. What can I do to help prevent SSIs? Before your surgery: Tell your doctor about other medical problems you may have. Health problems such as allergies, diabetes, and obesity could affect your surgery and your treatment. Quit smoking. Patients who smoke get more infections. Talk to your doctor about how you can quit before your surgery. Do not shave near where you will have surgery. Shaving with a razor can irritate your skin and makeit easier to develop an infection. At the time of your surgery: Speak up if someone tries to shave you with a razor before surgery. Ask why you need to be shaved and talk with your surgeon if you have any concerns. Ask if you will get antibiotics before surgery. After your surgery: Make sure that your healthcare providers clean their hands before examining you, either with soap and water or an alcohol-based hand rub. If you do not see you providers clean their hands, please ask them to do so. Family and friends who visit you should not touch the surgical wound or dressings. Family and friends should clean their hands with soap and water or an alcohol- based hand rub beforeand after visiting You. If you do not see them clean their hands, ask them to clean their hands. What do I need to do when I go home from the hospital? Before you go home, your doctor or nurse should explain everything you need to know about taking care of your wound. Make sure you understand how to care for your wound before you leave the hospital. Always clean your hands before and after caring for your wound. Before you go home, make sure you know who to contact if you have questions or problems after you get home. If you have any symptoms of an infection, such as a redness and pain at the surgery site, drainage,or fever, call your doctor immediately. If you have additional questions, please ask your doctor or nurse. Safety Tips for Preventing Falls at Home Falls happen at home for many reasons. Here are several things that are known to add to your risk of falling: Poor vision or hearing History of falls Use of an assistive device, such as a cane or walker Poor nutrition Certain medications Multiple medications Being older than 65 years of age Conditions in the home, such as slippery floors, loose rugs, cords on the floor If you answer ???yes?? to any of the following questions, please consider discussing your risk of falling with your primary care practitioner: Have you fallen in the last year? Do you feel unsteady when standing or walking? Do you have a fear of falling? If your primary care practitioner recommends physical therapy, we are available to assist: [facility]: [facility] [phone] [place] [phone] [facility] [phone] How are some things that you can do that will lower your risk for falls at home: Arrange furniture to prevent tripping or bumping into it. Keep a light on in the bedroom & bathroom to help you see at night. Have your doctor or pharmacist review your medications. Remove things that you can trip over like phone cords, rugs & footstools. Wear sturdy non-skid slippers or shoes with flat or low heels Use handrails when going up & down stairs. Take one step at a time. Begin a regular exercise program When getting up, sit on the edge of the bed/chair for a few minutes before standing. Sit & stand up slowly. Avoid tilting your head back. Watch out for sidewalks & curbs that are not even. Replace worn walker, cane & crutch tips. Disclaimer: This material provides general information only. It should not be used in place of the advice, instructions, or treatment given by your doctor or other health career information specialist. * Attachments The following attachments cannot be sent through Care Everywhere. * Bladder Stones (AfterCare(R) Instructions(ER/ED)) ([place]) * Bladder Stones (General Information) ([place]) documented in this encounter Medications at Time of Discharge amLODIPine (NORVASC) 5 mg tabletIndications :hypertension Take 1 tablet (5 mg total) by mouth every morning 03/17/2022 aspirin 81 mg enteric coated tabletIndications :prevention of thrombosis,CABG Take 1 tablet (81 mg total) by mouth every morning azelastine (ASTELIN) 137 mcg (0.1 %) nasal sprayIndications: Perennial Allergic Rhinitis Administer 1 spray into each nostril 2 (two) times a day Use in each nostril as directed cholecalciferol (VITAMIN D-3) 2000 unit tabletIndications :Prevention of Vitamin D Deficiency Take 2 tablets (4,000 Units total) by mouth every morning cyanocobalamin 2,000 mcg tabletIndications :Prevention of Vitamin B12 Deficiency Take 1 tablet (2,000 mcg total) by mouth every morning ferrous sulfate 325 mg (65 mg of elemental iron) tabletIndications :Iron Deficiency Anemia Take 1 tablet (325 mg total) by mouth every other day magnesium gluconate 200 mg tabletIndications :for supplement Take 1 tablet (200 mg total) by mouth every morning metFORMIN (GLUCOPHAGE) 500 mg tabletIndications :type 2 diabetes mellitus Take 2 tablets (1,000 mg total) by mouth 2 (two) times a day with meals metoprolol tartrate (LOPRESSOR) 50 mg immediate release tabletIndications :hypertension Take 1 tablet (50 mg total) by mouth 2 (two) times a day 03/17/[address] (PROTONIX) 40 mg EC tabletIndications :Treatment of Non-Bleeding Gastric Disorder Take 1 tablet (40 mg total) by mouth every morning 03/17/2022 phenazopyridine (PYRIDIUM) 100 mg tablet Take 1 tablet (100 mg total) by mouth 3 (three) times a day as needed for urinary pain (pain with urination) 30 tablet 03/14/2023 potassium citrate ER (UROCIT-K) 10 mEq (1,080 mg) CR tablet Take 1 tablet (10 mEq total) by mouth every morning for supplement 10/14/2019 ramipriL (ALTACE) 10 mg capsuleIndication s:hypertension Take 1 capsule (10 mg total) by mouth 2 (two) times a day 03/17/2022 rosuvastatin (CRESTOR) 20 mg tabletIndications :hyperlipidemia Take 1 tablet (20 mg total) by mouth nightly 02/21/2023 zinc gluconate 50 mg tabletIndications :for supplement Take 1 tablet (50 mg total) by mouth every morning finasteride (PROSCAR) 5 mg tabletIndications :Benign prostatic hyperplasia without lower urinary tract symptoms Take 1 tablet (5 mg total) by mouth daily 30 tablet 11 03/08/2023 3 documented as of this encounter Ordered Prescriptions Prescription Sig Dispense Quantity Refills Last Filled Start Date End Date phenazopyridine (PYRIDIUM) 100 mg tablet Take 1 tablet (100 mg total) by mouth 3 (three) times a day as needed for urinary pain (pain with urination) 30 tablet 03/14/2023 3 documented in this encounter Discharge Disposition Disposition Code Departure Means Destination Comment s Discharge to home or self care documented in this encounter H&P Notes * Lam Aviles MD - 03/14/2023 6:58 AM CDT General H&P Subjective Patient is a 67 y.o. male with chief complaint of bladder stone. HPI: Bladder stone s/p radical prostatectomy Past Medical History: Diagnosis Date Cancer (CMS/HCC) (HCC) Coronary artery disease Hyperlipidemia Hypertension Motion sickness Type 2 diabetes mellitus (HCC) Past Surgical History: Procedure Laterality Date APPENDECTOMY 2018 BLADDER STONE REMOVAL 2017 CARDIAC STENT PLACEMENT 2008 COLONOSCOPY 2021 CORONARY ARTERY BYPASS GRAFT 2012 MOHS SURGERY Left 2020 cheek PROSTATECTOMY 05/01/2022 Medications Prior to Admission Medication Sig Dispense Refill Last Dose amLODIPine (NORVASC) 5 mg tablet Take 1 tablet (5 mg total) by mouth every morning 03/13/2023 aspirin 81 mg enteric coated tablet Take 1 tablet (81 mg total) by mouth every morning Past Week azelastine (ASTELIN) 137 mcg (0.1 %) nasal spray Administer 1 spray into each nostril 2 (two) timesa day Use in each nostril as directed 03/14/2023 cholecalciferol (VITAMIN D-3) 2000 unit tablet Take 2 tablets (4,000 Units total) by mouth every morning 03/13/2023 cyanocobalamin 2,000 mcg tablet Take 1 tablet (2,000 mcg total) by mouth every morning 03/13/2023 ferrous sulfate 325 mg (65 mg of elemental iron) tablet Take 1 tablet (325 mg total) by mouth everyother day Past Week magnesium gluconate 200 mg tablet Take 1 tablet (200 mg total) by mouth every morning 03/13/2023 metFORMIN (GLUCOPHAGE) 500 mg tablet Take 2 tablets (1,000 mg total) by mouth 2 (two) times a day with meals 03/13/2023 metoprolol tartrate (LOPRESSOR) 50 mg immediate release tablet Take 1 tablet (50 mg total) by mouth2 (two) times a day 03/13/[address] (PROTONIX) 40 mg EC tablet Take 1 tablet (40 mg total) by mouth every morning 03/13/2023 potassium citrate ER (UROCIT-K) 10 mEq (1,080 mg) CR tablet Take 1 tablet (10 mEq total) by mouth every morning for supplement 03/13/2023 ramipriL (ALTACE) 10 mg capsule Take 1 capsule (10 mg total) by mouth 2 (two) times a day 03/13/2023 rosuvastatin (CRESTOR) 20 mg tablet Take 1 tablet (20 mg total) by mouth nightly 03/13/2023 zinc gluconate 50 mg tablet Take 1 tablet (50 mg total) by mouth every morning 03/13/2023 finasteride (PROSCAR) 5 mg tablet Take 1 tablet (5 mg total) by mouth daily 30 tablet 11 No Known Allergies Social History Tobacco Use Smoking status: Never Smokeless tobacco: Never Substance and Sexual Activity Drug use: Never Sexual activity: Defer Alcohol Use: Not At Risk (03/14/2023) AUDIT-C Frequency of Alcohol Consumption: Monthly or less Average Number of Drinks: 1 or 2 Frequency of Binge Drinking: Never Family History Problem Relation Age of Onset Anesthesia problems Neg Hx Objective Vitals: Arrival Vitals [03/14/23 0620] Temp 36.6 ??C (97.9 ??F) Pulse 59 Resp 11 BP 151/74 SpO2 98 % Temp src Heart Rate Source Patient Position BP Location FiO2 (%) 24hr Min/Max: Temp Min: 36.6 ??C (97.9 ??F) Max: 36.6 ??C (97.9 ??F) Pulse Min: 59 Max: 70 BP Min: 148/75 Max: 152/84 Resp Min: 11 Max: 29 SpO2 Min: 98 % Max: 99 % Most Recent : Vitals: 03/14/23 0633 BP: Pulse: 70 Resp: 14 Temp: 36.6 ??C (97.9 ??F) SpO2: 99% No intake/output data recorded. No intake/output data recorded. Physical Exam Constitutional: Appearance: Normal appearance. HENT: Head: Normocephalic. Eyes: Pupils: Pupils are equal, round, and reactive to light. Pulmonary: Effort: Pulmonary effort is normal. Abdominal: General: Abdomen is flat. Musculoskeletal: General: Normal range of motion. Cervical back: Normal range of motion. Skin: General: Skin is dry. Neurological: General: No focal deficit present. Mental Status: He is alert and oriented to person, place, and time. Psychiatric: Mood and Affect: Mood normal. Behavior: Behavior normal. Assessment Principal Problem: Bladder stone Plan To OR for cystolithopaxy documented in this encounter Miscellaneous Notes * Op Note - Lam Aviles MD - 03/14/2023 7:15 AM CDT Operative Report SURGEON: Lam Aviles MD Cascara Bark Cutter: Amna Clark MD SURGICAL TEAM: Film Touch Up Inspector: Mary Jaffe RN Scrub: Rossana Yan [facility] Film Touch Up Inspector: Sahara Mckeon RN DATE OF SURGERY : 03/14/2023 PREOPERATIVE DIAGNOSIS: Pre-op Diagnosis * Bladder stone [N21.0] POSTOPERATIVE DIAGNOSIS: Post-op Diagnosis * Bladder stone [N21.0] PROCEDURE: LASER - LITHOTRIPSY - THULIUM, CYSTOLITHOPAXY 2cm bladder stone INDICATION FOR PROCEDURE: Bladder stone ANESTHESIA: General IMPLANTS: Nothing was implanted during the procedure OPERATIVE DETAILS Estimated Blood Loss: No blood loss documented. Intraoperative Fluids: See anesthesia records Blood/Blood Products Transfused: None Specimens: Order Name Source Comment Collection Info Order Time SURGICAL PATHOLOGY Bladder Stone Sent Fresh Collected By: Lam Aviles MD 03/14/2023 7:53 AM PROCEDURE: After informed consent was obtained the patient was taken to the operating room. He received preoperative antibiotic prophylaxis. After induction of anesthesia was placed in lithotomy position. Genitals prepped and draped in usual fashion. A 26 Hebrew continuous-flow resectoscope sheath was advanced through the urethra. There was some resistance of the meatus so urethral sounds were utilized to dilate the urethral meatus to 28 Hebrew. The scope was then advanced through the urethra. The anterior urethra was normal. There was mild bladder neck contracture which was dilated by the passage of the resectoscope with some minimal resistance. The bladder was entered and examined throughout in a sys tematic fashion demonstrating a 2 cm stone in the dependent portion of the bladder. The remainder of the bladder demonstrated no urothelial lesions. The ureteral orifices are visualized bilaterally and appeared normal. The Thulium laser fiber was inserted and utilized to fragment the bladder stone.After adequate fragmentation was performed the stone fragments were evacuated from the bladder through the resectoscope sheath. Stone fragments were sent for chemical analysis. The scope was withdrawn and the patient was awakened from anesthesia and transported to the recovery area in stable condition. Tolerated the procedure without complication. Will be discharged home and continue scheduled tofollow up with Dr. Rodrigues. I was present and participated in the entire procedure. Complications: None Condition on Discharge from the operating room was stable Lam Aviles MD Date: 03/14/2023 Time: 8:02 AM TEACHING ATTESTATION : I was present and directly participated in the entire procedure (including opening and closing). * Pre-Procedure Instructions - Bettina Fox NP - 03/06/2023 10:29 AM CDT [facility] for Preoperative Assessment and Planning CP[facility] Clinic Location: [facility] The night before your surgery: * Do not eat anything after midnight the night before your procedure. and * Do not smoke or use tobacco products after midnight the night before surgery. It is best to stop smoking now to improve your health. The morning of your surgery: * You may have clear liquids on your surgery day. You must stop drinking two hours before you arrive to the surgery facility. Acceptable clear liquids include water, clear sports drinks, black coffee, or clear soda. DO NOT drink any milk, creamer, or alcohol. * Your surgeon's office may have provided additional instructions or restrictions. Please follow those instructions. * You may brush your teeth and rinse your mouth out. * Do not glue your dentures. * Do not wear jewelry, body piercings, makeup, hairpins, false eyelashes or contact lenses to the hospital. * Leave any valuables at home or with your family. Outpatient Surgery: * You must have a responsible adult drive you home and stay with you for 24 hours after your surgery * You cannot be alone at home or in a hotel * Please call your surgeon's office if you do not have someone to drive you home and/or stay with you after surgery * Please bring any items you may need to spend the night in the hospital. Sometimes patients need to be cared for in the hospital overnight. Instructions For Your Medications: Pre-Surgery Instructions: Medication Instructions amLODIPine (NORVASC) 5 mg tablet Take morning of surgery aspirin 81 mg enteric coated tablet Stop taking 1 week prior to surgery azelastine (ASTELIN) 137 mcg (0.1 %) nasal spray Take on day of surgery if needed cholecalciferol (VITAMIN D-3) 2000 unit tablet Don't take on day of surgery cyanocobalamin 2,000 mcg tablet Don't take on day of surgery ferrous sulfate 325 mg (65 mg of elemental iron) tablet Don't take on day of surgery magnesium gluconate 200 mg tablet Don't take on day of surgery metFORMIN (GLUCOPHAGE) 500 mg tablet Don't take on day of surgery metoprolol tartrate (LOPRESSOR) 50 mg immediate release tablet Take morning of surgery pantoprazole DR (PROTONIX) 40 mg EC tablet Take morning of surgery potassium citrate ER (UROCIT-K) 10 mEq (1,080 mg) CR tablet Don't take on day of surgery ramipriL (ALTACE) 10 mg capsule Don't take on day of surgery rosuvastatin (CRESTOR) 20 mg tablet Per usual schedule zinc gluconate 50 mg tablet Don't take on day of surgery Your surgeon will tell you IF YOU SHOULD STOP the following medications and WHEN TO STOP taking them. Do not stop taking them on your own without being told to do so: -ASPIRIN General Instructions For Medications: * Stop all of these medications 5 days prior to your surgery: excedrin, motrin, advil, ibuprofen, aleve, naproxen, meloxicam, celebrex, celecoxib. For medications that you are instructed to take on the morning of surgery, take the medications with a few sips of water. Stop all of these medications 7-14 days prior to your surgery: Vitamin E, Herbal medicines, Diet Pills If you have pain, you may take tylenol (acetaminophen). Do not take more than 6 tablets or 3000 mg (3 g) within a 24 period. Call your surgeon and the CPAP clinic if any of the following happens before surgery: Any changes in your health You have a fever You have any signs of an infection (chest, urinary tract or tooth) You have been to the Emergency Room or were in the hospital You have started taking any new medications You have questions about a bowel prep or special diet before surgery You have symptoms of COVID-19 such as a new or worsening cough, shortness of breath, fever, body aches, loss of taste or smell, diarrhea or vomiting, or sore throat. You have a household contact with COVID-19. You test positive for COVID-19. * Perioperative Nursing Note - Radha Jansen RN - 03/05/2023 3:57 PM CDT Center for Preoperative Assessment and Planning Perioperative Nursing Note Telephone Preoperative Evaluation ([facility]) - TELEPHONE ONLY, NO PHYSICAL EXAM Date: 03/05/23 Vitals: 03/05/23 1555 Weight: 81.6 kg (180 lb) Height: 182.9 cm (6') CHEST CIRCUMFERENCE: NA Social History Tobacco Use Smoking Status Never Smokeless Tobacco Never Vaping Use Vaping Status Never Used Substance and Sexual Activity Drug Use Never Alcohol Use Q1: How often do you have a drink containing alcohol?: Monthly or less Q2: How many drinks containing alcohol do you have on a typical day when you are drinking?: 1 or 2 Q3: How often do you have six or more drinks on one occasion?: Never Outpatient Medications Marked as Taking for the 03/14/23 encounter (Hospital Encounter) Medication Sig Dispense Refill amLODIPine (NORVASC) 5 mg tablet Take 1 tablet (5 mg total) by mouth every morning aspirin 81 mg enteric coated tablet Take 1 tablet (81 mg total) by mouth every morning azelastine (ASTELIN) 137 mcg (0.1 %) nasal spray Administer 1 spray into each nostril 2 (two) timesa day Use in each nostril as directed cholecalciferol (VITAMIN D-3) 2000 unit tablet Take 2 tablets (4,000 Units total) by mouth every morning cyanocobalamin 2,000 mcg tablet Take 1 tablet (2,000 mcg total) by mouth every morning ferrous sulfate 325 mg (65 mg of elemental iron) tablet Take 1 tablet (325 mg total) by mouth everyother day magnesium gluconate 200 mg tablet Take 1 tablet (200 mg total) by mouth every morning metFORMIN (GLUCOPHAGE) 500 mg tablet Take 2 tablets (1,000 mg total) by mouth 2 (two) times a day with meals metoprolol tartrate (LOPRESSOR) 50 mg immediate release tablet Take 1 tablet (50 mg total) by mouth2 (two) times a day pantoprazole DR (PROTONIX) 40 mg EC tablet Take 1 tablet (40 mg total) by mouth every morning potassium citrate ER (UROCIT-K) 10 mEq (1,080 mg) CR tablet Take 1 tablet (10 mEq total) by mouth every morning for supplement ramipriL (ALTACE) 10 mg capsule Take 1 capsule (10 mg total) by mouth 2 (two) times a day rosuvastatin (CRESTOR) 20 mg tablet Take 1 tablet (20 mg total) by mouth nightly zinc gluconate 50 mg tablet Take 1 tablet (50 mg total) by mouth every morning Implants Stent Stent-07/01/2009 - Implanted 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: [employer] As of 04/27/2022 Status: Implanted SKIN Piercings Remaining: No Wound (LDAs) Type of Wound (LDA): (denies) SCREENINGS Dequan index score: 95 NUTRITION PATIENT CARE PLANNING Advance Directives (For Healthcare) Have you reviewed your Advance Directive and is it valid for this stay?: Yes Advance Directive: Patient has advance directive, copy in chart Type of Healthcare Directive: Health care treatment directive Information Provided on Healthcare Directives: No Pre-existing DNR/DNI Order: No Patient Requests Assistance: No Communication/Colliery Clerk Needs Communication Barriers: Visual Communication Needs: Glasses Assistive Devices/DME: Eyeglasses (Readers) Hearing - Right Ear: Functional Hearing - Left Ear: Functional Discharge Planning Type of Residence: Private residence Living Arrangements: Spouse/significant other Support Systems: Spouse/significant other Assistance Needed: His will drive him and help care for him after surgery. 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) PRE-SURGICAL NURSING INSTRUCTIONS Telephone Assessment General Information Discussed with Patient: Surgery location provided to patient. Arrival time and surgical time will be provided to the patient by their surgeon. You should wear clothing that is clean, loose, comfortable and easy to get in and out of on the dayof surgery. You should remove nail coverings, artificial nails and nail occitan prior to the day of surgery. You should leave your valuables and any jewelry at home. No metal or piercings are allowed in the operating room. You should bring your insurance card, a photo ID (example: Risk Officer's License) and a method of payment for any insurance copay, deductible or copay for discharge medications. You should bring a complete, up-to-date, list of all your medications on the day of surgery, including any over the counter medications or supplements you may take. Please note on your medication list, the last date & time you took each medication. The healthcare team, on the day of surgery, will ask for this information. You should bring your Advanced Directive and/or Living Will with you on the day of surgery if you have not verified a copy is already in your Epic Chart. If you are having surgery at [facility], please arrive on the day of surgery with the name and phone number of your local 24 hour pharmacy. Due to evening discharges, your routine pharmacy may be closed. In order to obtain your prescriptions that evening, your surgeon may need to send prescriptions to this pharmacy or have you take prescriptions to this pharmacy when you are discharged. Without this information, you may not be able to obtain your prescriptions that evening. A Guide for Patients Having Surgery: Your Pathway to Excellent Care OUR GOAL IS TO PROVIDE YOU WITH EXCELLENT CARE Use this guide to learn about what you can do before, during and after surgery to help your recovery. You are the most important person on your health care team. By becoming informed and involved, you can contribute to the success of your surgery. If your surgeon's directions are different than those in this guide, talk with your nurse or surgeon to confirm the information. It is important that you understand how to take care of yourself at home after surgery. Be sure to bring this guide with you on the day of surgery and take it home with you after surgery. Write down questions for your nurse or surgeon on the last page of this booklet. Important pages to be reviewed BEFORE surgery: Page 1: QR codes for Surgery Center maps Page 3: Types of Anesthesia Page 5: Tips for the day & night before surgery Page 6: When to stop eating BEFORE surgery and examples of clear liquids Page 7-10: Preventing Infection: Chlorhexidine Gluconate (CHG) Bathing Instructions You may access A Guide for Patients Having Surgery: Your Pathway to Excellent Care by the followinglink: [email or web address] How To Prepare Your Skin For Surgery Below is the Pre-Surgical Bathing Protocol you should follow for your surgery. If your surgeon provides you different bathing instructions, please follow your surgeon's orders. Normal Bathing: Bathe with regular soap the night before and/or day of surgery. Normal Bathing Protocol Bathe with your normal soap the night before and/or the morning of surgery. Wear clean clothes or pajamas to sleep in. After showering DO NOT put on deodorant, hair products, conditioners, lotions, creams, powders, Vaseline or any non-essential products. Remove nail coverings, artificial nails and nail occitan. Place clean linens on your bed the night before surgery. Shaving: You may shave your face, legs and underarms during your evening shower. Avoid shaving on the day of surgery. Travel/Exp osure Screening: Travel Screening Have you traveled outside the [place] in the last 6 months?: No Exposure Screening Have you been exposed to anyone who is sick in the last 30 days?: No Have you been exposed to or tested positive for COVID-19 within the last 10 days?: No Have you tested positive for monkeypox within the last 28 days or are you waiting for a monkeypox test result?: No Infectious Disease Screening Are you having any of the following:: None As of 09/11/2022 any COVID TESTING required for surgery will be set up by your surgeon's office. Please reach out to your surgeon's office if you develop any COVID symptoms, test positive for COVID or are exposed to a COVID positive person. If you have questions, please call the CPAP Staff at [phone], Saturday-Saturday 8am-4:30pm. All patients should read the below section: All visitors/patients are being asked to wear a clean face mask when entering the hospital. COVID 19 Updates & Visitor Policy: Please access [email or web address] for the most updated information. Information on [facility], [facility]: Please view [email or web address] (Patient & Visitor Information) for additional details regarding Advanced Directive forms, AWARE, directions, parking information, lodging, Internet access, dining and more. Information on [facility] or [facility] [place] ([facility]): Please view [email or web address] (Patient and Visitor Information) for parking/directions and more. For MyChart information, to activate account or password recovery, please go to [email or web address] or call [phone] (toll-free: [phone]). Information for Suicide Prevention: National Suicide Prevention Lifeline (1-338- 407-PSQY (0561)). Surgery Times: For patients having surgery @ [facility], [facility], [facility] or [facility] [place] ([facility]), if your surgeon's office has not notified you of your surgery time by NOON THE BUSINESS DAY BEFORE your surgery, please call [phone] and ask for your surgeon's office Dr. Aviles. documented in this encounter Plan of Treatment Not on file documented as of this encounter Procedures Procedure Name Priority Date/Time Associated Diagnosis Comments POCT GLUCOSE DEVICE Routine 03/14/2023 8 :16 AM CDT SURGICAL PATHOLOGY Routine 03/14/2023 7: 53 AM CDT Bladder stone CYSTOLITHOPAXY 03/14/2023 7:13 AM CDT Bladder stone LASER - LITHOTRIPSY - THULIUM 03/14/2023 7:13 AM CDT Bladder stone POC ISTAT Routine 03/14/2023 7:10 AM CDT POC ISTAT Routine 03/14/2023 6:41 AM CDT POCT GLUCOSE DEVICE Routine 03/14/2023 6 :38 AM CDT documented in this encounter Results * POCT glucose (03/14/2023 8:16 AM CDT) Glucose, POC 101 70 - 199 mg/dL FEDERICO ADAIR[facility] Comment: Interpretive Data Glucose is assumed to be non-fasting. Fasting Glucose reference ranges are: 0 - 150 years: ??70 mg/dL - 99 mg/dL Current interpretive data was last revised on 2014. POC Performer [id number] [facility] POC Device Number [id number] [facility] Blood 03/14/2023 8:16 AM CDT 03/14/2023 8:16 AM CDT us Lam Aviles MD LAB POCT ORDERABLES - DEVICE Final Result [facility] [id number] [facility]. Department [place] [address] * Surgical pathology (03/14/2023 7:53 AM CDT) Tissue (Bladder Stone) 03/14/2023 7:53 AM CDT Comment:Sent Fresh Narrative PATHOLOGY [facility] - 03/15/2023 4:26 PM CDT EPIC results best viewed via link to PDF [facility]a [facility] [place] [address] Note to Patients: This report may contain a detailed description of human tissue sent by a health care provider to the laboratory for pathologic evaluation. The content of this report is essential for diagnosis and may provide important critical findings. This information may be unfamiliar to patients to review without a medical professional present. It is advised that the patient review this report in the presence of a health care provider who can answer questions and explain the details. SURGICAL PATHOLOGY REPORT FINAL WITH ADDENDUM Patient Name: ?? ALEXEY GIBBS Gender: ??M : ??1955 (Age: 67) Address: ??[facility] [address], [place], [place] ??[address] Hospital #: ??[id number] Taken:03/14/2023 Received:03/14/2023 Reported: 03/15/2023 Patient Type: C EP SAME Client ?[facility] Service: Surgery Location: Physician(s): ??Melissa Kapoor M.D. Diagnosis: Bladder stone, stone, removal ? - Lithiasis (gross examination only, sent for chemical analysis) [facility]03/14/2023 14:43 By this signature, I attest that the above diagnosis is based upon my personal examination of the slides(and/or other material indicated in the diagnosis). Chace Vinson M.D., PH.D. Report Electronically Reviewed and Signed Out By ??Chace Vinson M.D., PH.D. 03/15/2023 16:26:10 History: The patient is a 67-year-old male presenting for bladder stone. ??Operative Procedure: Laser lithotripsy thulium. ??Cysto litholapaxy. Specimen(s) Received: A: Bladder stone Gross Description: Received in without fixative, labeled with the patient? ? s identifiers and bladder stone consists of multiple stanton-brown multifaceted stone(s) measuring 1.6 x 1.4 x 0.4 cm in aggregate. ??Entirely submitted for chemical analysis. Jar 0. ?? PA(s): Ibis Restrepo By this signature, I attest that the above diagnosis is based upon my personal examination of the slides(and/or other material). Addenda/Procedures Addendum Ordered:03/27/2023Status:Signed OutAddendum Complete:03/27/2023y:Chace Vinson M.D., PH.D.Addendum Signed Out:03/31/2023 Addendum Comment A digital scan of the original reference lab report will begin on page two of this addendum. ?? By this signature, I attest that the above diagnosis is based upon my personal examination of the slides(and/or other material indicated in the diagnosis). Chace Vinson M.D., PH.D.Report Electronically Reviewed and Signed Out By ??Chace Vinson M.D., PH.D. ??03/31/2023 19:26:23 ?? Microscopic slide review and interpretation for this case was performed at [facility], Department of Surgical Pathology, [address] [facility] [id number], ??[place], [place] ??[address] ?? CLIA # [id number] The performance characteristics of some immunohistochemical stains, fluorescence in-situ hybridization tests and immunophenotyping by flow cytometry cited in this report (if any) were determined by the Surgical Pathology and Flow Cytometry Departments at [facility] as part of an ongoing quality assurance qa lab technician program and in compliance with federally mandated regulations drawn from the Clinical Laboratory Improvement Act of 1988 (CLIA '88). ??Some of these tests rely on the use of analyte specific reagents and are subject to specific labeling requirements by the US Food and Drug Administration. ??Such diagnostic tests may only be performed in a facility that is certified by the Department of Health and Human Services as a high complexity laboratory under CLIA '88. ??The FDA has determined that such clearance or approval is not necessary. ??This test is used for clinical purposes. ??It should not be regarded as investigational or for research. ??Nevertheless, federal rules concerning the medical use of analyte specific reagents require that the following disclaimer be attached to the report: This test was developed and its performance characteristics determined by the Surgical Pathology and Flow Cytometry Departments of [facility]. ??It has not been cleared or approved by the U. S. Food and Drug Administration. IMAGES AND SCANNED DOCUMENTS, IF INCLUDED, ONLY VIEWABLE IN PDF VERSION OF REPORT Lam Aviles MD LAB PATHOLOGY ORDERA WINIFREDS Final Result [facility] [phone] * POC ISTAT (03/14/2023 7:10 AM CDT) Hct, POC 35 39.0 - 52.0 % [facility] BRION[facility] Hgb, POC 11.9 g/dL FEDER[facility] BRIONES Comment: Interpretive data. No reference ranges established. The Hemoglobin is a calculated value based on the measured Hematocrit. Current interpretive data last reviewed 2015. POC Device Number [id number] [facility] BRIONES POC Performer [id number] [facility] Blood 03/14/2023 7:10 AM CDT 03/14/2023 7:10 AM CDT Lam Aviles MD LAB BLOOD ORDERABLES Final Result Performing Organization Address [facility] Phone Number [facility] [address] [facility] [place] [address] * POC ISTAT (03/14/2023 6:41 AM CDT) [facility] K POC 4.2 3.3 - 4.9 mmol/L [facility] Comment: Interpretive Data This method is not able to assess for hemolysis, which may falsely increase potassium concentrations. If further testing is needed to evaluate this result, consider in-laboratory plasma potassium. Current Interpretive Data was last revised on 2022. POC Device Number [id number] [facility] POC Performer [id number] [facility] Blood 03/14/2023 6:41 AM CDT 03/14/2023 6:41 AM CDT Lam Aviles MD LAB BLOOD ORDERABLES Final Result Performing Organization Address [facility] Phone Number [facility]ER[facility] BELTR[facility]NCH [address] [place] [address] * POCT glucose (03/14/2023 6:38 AM CDT) Pathologist [facility] Glucose, POC 113 70 - 199 mg/dL [facility] Comment: Interpretive Data Glucose is assumed to be non-fasting. Fasting Glucose reference ranges are: 0 - 150 years: ??70 mg/dL - 99 mg/dL Current interpretive data was last revised on 2014. POC Performer [id number] [facility] POC Device Number [id number] [facility] Blood 03/14/2023 6:38 AM CDT 03/14/2023 6:38 AM CDT us Lam Aviles MD LAB POCT ORDERABLES - DEVICE Final Result [facility] [address] [facility]. Department [place] [address] documented in this encounter Visit Diagnoses Diagnosis Bladder stone- Primary Other calculus in bladder documented in this encounter Admitting Diagnoses Diagnosis Bladder stone Other calculus in bladder documented in this encounter Administered Medications Inactive Administered Medications - up to 3 most recent administrations Medication Order MAR Action Action Date Dose Rate Site Lactated Ringer's (LR) infusion 30 mL/hr, intravenous, Continuous, Starting on Sena 03/14/23 at 0715, For 4 hours, Use a 500 ml bag for End Stage Renal Disease Patients. Discontinue if fluid still running once patient arrives to floor. New Bag 03/14/2023 8:02 AM CDT Rate/Dose Verify 03/14/2023 7:13 AM CDT 30 mL/h r New Bag 03/14/2023 6:39 AM CDT 30 mL/hr 30 mL/hr documented in this encounter Discontinued Medications Medication Sig Discontinue Reason Start Date End Da te Klor-Con M10 10 mEq CR tabletIndications:hypoka lemia prevention Take 1 tablet/capsule (10 mEq total) by mouth every morning Error 02/28/2022 03/05/2023 rosuvastatin (CRESTOR) 10 mg tabletIndications:hyperl ipidemia Take 1 tablet (10 mg total) by mouth nightly Error 03/17/2022 03/05/2023 documented as of this encounter Historical Medications * This list may reflect changes made after this encounter. magnesium gluconate 200 mg tabletIndication s:for supplement Take 1 tablet (200 mg total) by mouth every morning rosuvastatin (CRESTOR) 20 mg tabletIndication s:hyperlipidemia Take 1 tablet (20 mg total) by mouth nightly 02/21/2023 potassium citrate ER (UROCIT-K) 10 mEq (1,080 mg) CR tablet Take 1 tablet (10 mEq total) by mouth every morning for supplement 10/14/2019 added in this encounter Active and Recently Administered Medications Times are shown in CDT. Scheduled Medication Order 03/12/2023 03/13/2023 03/14/2023 ceFAZolin (ANCEF) 1 gram/10 mL in sterile water (premix) 2,000 mg (COMPLETED) 2,000 mg, intravenous, at 400 mL/hr, Administer over 3 Minutes, Once, On Sena 03/14/23 at 0715, For 1 dose, Pre-Op, Administer within 60 minutes of incision., Indications: Prophylaxis, Surgical 0720 (Given - Provid er: Hakeem Rivera CRNA) Continuous Medication Order 03/12/2023 03/13/2023 03/14/2023 Lactated Ringer's (LR) infusion 30 mL/hr, intravenous, Continuous, Starting on Sena 03/14/23 at 0715, For 4 hours, Use a 500 ml bag for End Stage Renal Disease Patients. Discontinue if fluid still running once patient arrives to floor. 0639 (New Bag - Prov ider: Jennifer Soler RN)0713 (Rate/Dose Verify - Provider: Hakeem Rivera CRNA)0801 (Paused - Provider: Hakeem Rivera CRNA - Comment: Switch to gravity)0802 (New Bag - Provider: Hakeem Rivera CRNA)1311 (Due: Stopped) Lactated Ringer's (LR) infusion 125 mL/hr, intravenous, Continuous, Starting on Sena 03/14/23 at 0845, For 4 hours, Phase I, Discontinue upon discharge from PACU to the floor. 0845 (Due) PRN Medication Order 03/12/2023 03/13/2023 03/14/2023 acetaminophen (TYLENOL) tablet 500 mg 500 mg, oral, Every 6 hours PRN, headaches, other, Breakthrough Pain and Supplement to other pain meds, Starting on Sena 03/14/23 at 0811, For 2 doses, Phase I, When able to tolerate PO after consulting with Anesthesiologist. Do not administer if patient has already received Acetaminophen-containing medications in PACU., Indications: Pain diphenhydrAMINE (BENADRYL) injection 12.5 mg 12.5 mg, intravenous, Administer over 1 Minutes, Every 5 min PRN, itching, other, For Nausea, administer 25 mg IV., Starting on Sena 03/14/23 at 0811, For 4 doses, Phase I, Max cumulative dose 50 mg., Indications: Itching famotidine (PEPCID) injection 20 mg (COMPLETED) 20 mg, intravenous, Administer over 2 Minutes, Once as needed, heartburn, Medication to be administered by the anesthesia staff (Anesthesiologist or SEASONING SPRAYER), Starting on Sena 03/14/23 at 0635, For 1 dose, Pre-Op, Indications: Heartburn, Heartburn Prevention, gastroesophageal reflux disease, Reflux 0713 (Given - Provid er: Hakeem Rivera CRNA) fentaNYL (SUBLIMAZE) preservative free injection 25 mcg 25 mcg, intravenous, Every 5 min PRN, 2nd line for pain, Use Fentanyl as 1st line medication for extremely severe pain for outpatients, and follow with oral pain medication., Starting on Sena 03/14/23 at 0811, For 4 doses, Phase I, Use as 1st line for outpatients, dose not to exceed 100 mics. If pain still extremely severe after 100 mics of Fentanyl, may proceed to Dilaudid after consulting with Anesthesiologist. If patient able to tolerate PO meds and pain improved after Fentanyl, proceed to Oral pain medication., Indications: Pain hydrALAZINE (APRESOLINE) injection 5 mg 5 mg, intravenous, Administer over 2 Minutes, Every 5 min PRN, high blood pressure, Starting on Sena 03/14/23 at 0811, Phase I, Max cumulative dose 20 mg. Dose if systolic BP greater than 180 AND heart rate less than 70., Indications: hypertension HYDROcodone-acetaminophen (NORCO) 5-325 mg per tablet 1 tablet 1 tablet, oral, Every 20 min PRN, 3rd line for pain, breakthrough pain, May use as 1st line pain medication if pain not extremely severe and patient able to tolerate PO meds. If unable to tolerate PO meds or outpatient complaining of extremely severe pain, start with Fentanyl and follow with Oral meds., Starting on Sena 03/14/23 at 0811, For 2 doses, Phase I, May administer TWO pills together if pain moderate to severe and patient able to tolerate PO meds, after consulting with Anesthesiologist., Indications: Pain HYDROmorphone (DILAUDID) injection 0.2 mg 0.2 mg, intravenous, Administer over 2 Minutes, Every 5 min PRN, 1st line for pain, Use as 1st line pain med for inpatients or for patients with extremely severe pain., Starting on Sena 03/14/23 at 0811, Phase I, Use as first line pain medication for inpatients. May use as first line medication for outpatients with extremely severe pain, history of opioid tolerance, or history of Chronic Pain with opioid tolerance, after consulting with Anesthesiologist. Inform anesthesiologist when dose reaches 2 mg for inpatients or 1 mg for outpatients., Indications: Chronic Pain with Opioid Tolerance, Pain, Severe Pain with Opioid Tolerance labetaloL (NORMODYNE,TRANDATE) injection 5 mg 5 mg, intravenous, Every 5 min PRN, high blood pressure, Starting on Sena 03/14/23 at 0811, For 4 doses, Phase I, Max cumulative dose 20 mg. Dose if systolic blood pressure greater than 180 AND HR greater than 70. meperidine (DEMEROL) preservative free injection 12.5 mg 12.5 mg, intravenous, Administer over 5 Minutes, Every 10 min PRN, shivering, Starting on Sena 03/14/23 at 0811, For 2 doses, Phase I, Max cumulative dose 25 mg., Indications: Shivering naloxone (NARCAN) 0.4 mg/mL injection 0.04-0.4 mg 0.04-0.4 mg, intravenous, Once as needed, other, excessive sedation/respiratory depression, Starting on Sena 03/14/23 at 0811, For 1 dose, Phase I, Dilute 0.4 mg with 9 mL NS (final concentration 0.04 mg/mL). For respiratory depression (respiratory rate less than 6), administer 0.4 mg IVP over 30 seconds. For excessive sedation administer 0.04 mg (1 mL) every 1 minute until desired level of alertness. Consult with Anesthesiologist before administration. Administer 40 mics at a time. For IV, administer over 30 seconds., Indications: Opioid Toxicity ondansetron (ZOFRAN) injection 4 mg 4 mg, intravenous, Administer over 2 Minutes, Once as needed, nausea, vomiting, Starting on Sena 03/14/23 at 0811, For 1 dose, Phase I, Proceed to prochlorperazine if ondansetron has been given within the last 6 hours. prochlorperazine (COMPAZINE) injection 5 mg 5 mg, intravenous, Administer over 2 Minutes, Once as needed, nausea, vomiting, Starting on Sena 03/14/23 at 0811, For 2 doses, Phase I, If nausea/vomiting not relieved by ondansetron within 30 minutes or if ondansetron has been given within the last 6 hours. May repeat in 15 minutes of nausea not relieved. sodium chloride 0.9% irrigation (CANCELED) As needed, Starting on Sena 03/14/23 at 0753, Intra-Op 0753 (Given - Provid er: Lam Aviles MD) documented in this encounter Orders Medications Ordered That Zach ht Not Have Been Administered Count Last Ordered Date First Ordered Date acetaminophen (TYLENOL) tablet 500 mg 1 ceFAZolin (ANCEF) 1 gram/10 mL in sterile water (premix) 2,000 mg 1 03/14/2023 diphenhydrAMINE (BENADRYL) i njection 12.5 mg 1 03/14/2023 famotidine (PEPCID) injection 20 mg 1 03/14 fentaNYL (SUBLIMAZE) preserv ative free injection 25 mcg 1 03/14/2023 hydrALAZINE (APRESOLINE) injection 5 mg 1 0 03/14/2023 HYDROcodone-acetaminophen (N ORCO) 5-325 mg per tablet 1 tablet 1 03/14/2023 HYDROmorphone (DILAUDID) injection 0.2 mg 1 03/14/2023 labetaloL (NORMODYNE,TRANDAT E) injection 5 mg 1 03/14/2023 Lactated Ringer's (LR) infusion 1 lidocaine PF (XYLOCAINE) 10 mg/mL (1 %) preservative free injection 2-10 mg 1 03/14/2023 meperidine (DEMEROL) preserv ative free injection 12.5 mg 1 03/14/2023 naloxone (NARCAN) 0.4 mg/mL injection 0.04-0.4 mg 1 03/14/2023 ondansetron (ZOFRAN) injection 4 mg 1 03/14 prochlorperazine (COMPAZINE) injection 5 mg 1 03/14/2023 scopolamine patch 72 hour 1 patch 1 023 sodium chloride 0.9% flush 0.5-20 mL 02/17 sodium chloride 0.9% irrigation 1 Diet Count Last Ordered Date First Orde red Date ADULT DISCHARGE DIET 1 03/14/2023 Nursing Count Last Ordered Date First Orde red Date DISCHARGE ACTIVITY 1 03/14/2023 DISCHARGE CALL PROVIDER 5 03/14/2023 Discharge Count Last Ordered Date First Orde red Date DISCHARGE PATIENT 1 03/14/2023 documented in this encounter Care Teams Frozen Food Selector Relationship Specialty Start Date End Date John Lozoya MD [address] [address] PCP - General Family Medicine 04/03/22 documented as of this encounter
--- OUTSIDE RECORDS SUMMARY | 2024-11-07 09:27 | XMS_ITS | Encounter Summary ---
Author Organization [facility] [employer] [facility] Address [address] [place] [address] Phone Care Team Providers Care Gauge And Weigh Machine Adjuster Name Role Phone John Lozoya MD Primary Care Provider [phone] [phone] Reason for Referral * Diagnostic Imaging (Routine) - Closed Specialty Diagnoses / Procedures Referred By Wade renner Referred To Contact Radiology Diagnoses Kidney stone Procedures CT Abdomen Pelvis WO Contrast Armen Rodrigues MD Phone: tel: fax: [address] [address] Referral ID Status Reason Start Date Expiration Date Visits Re quested Visits Authorized [id number] Closed 02/06/2023 08/05/2023 1 1 Reason for Visit * Consultation (Routine) - Closed Specialty Diagnoses / Procedures Referred By Wade renner Referred To Contact Urology Diagnoses Prostate cancer (HCC) Referral, Self Armen Rodrigues MD [address] [place] [address] Phone: tel: fax: Referral ID Status Reason Start Date Expiration Date V isits Requested Visits Authorized [id number] Closed Specialty Services Required 04/03/2022 05/03/2023 99 99 Encounter Details Date Type Department Care Team (Late st Contact Info) Description 02/05/2023 3:40 PM CDT Telemedicine [facility] Urology [address] [facility] Medical Office Building [address] [place] [id number] Armen Rodrigues MD [address] [place] [address] Kidney stone (Primary Dx) Social History Tobacco Use Types [...] on file 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 During the visit, I was located at a healthcare facility and the patient was located at his home in the [facility]. The patient visit started at 3:12 PM and ended at 3:19 PM. My total encounter time on 02/05/2023 was 10 minutes which was spent in the activities documented in the note. This includes time spent prior to the visit and after the visitin direct care of the patient. This time does not include time spent in any separately reportable services. The patient has been informed that the visit may not be secure and acknowledged the information. The option of participating in a telephone or video visit during the COVID-19 public health emergency was explained to them. After being given an opportunity to ask questions about and discuss this typeof visit, they verbally consented to proceeding with the telephone/video visit and understand that this service replaces an office visit. Armen Rodrigues MD Chief Complaint: prostate cancer History of Present Illness: Alexey Gibbs is a 67 y.o. male s/p RALP on 04/2022 - Final path = T2N0, GGG2, 5 mm margin - (Did perform Prolaris on his biopsy tissue with [facility] urologist) - PSA 6.8 ng/mL pre-operatively - PSA undetectable 09/2022 (slight uptrend to 0.07 ng/mL) - 0 pads per day - +spontaneous erections (nocturnal) Subjective Review of systems: A complete of systems was conducted and was negative except for as explicitly listed in the Historyof Present Illness. Assessment/Plan It was a pleasure speaking with Alexey Gibbs today. Alexey Gibbs is a 67 y.o. male s/p RALP on 04/2022 - Discussed AUA/NCCN guidelines - Discussed urinary and sexual function expectations - PSA soon and in 4 months - Follow-up in 4 months - Plan for Decipher given uptrending PSA within the undetectable range - Plan for CT for kidney stone history documented in this encounter Plan of Treatment Not on file documented as of this encounter Results * CT Abdomen Pelvis WO Contrast (02/20/2023 4:20 PM CDT) Anatomical Region Laterality Modality Body N/A Computed Tomogra phy 02/21/2023 1:56 AM CDT Narrative 02/21/2023 2:04 AM CDT EXAM DESCRIPTION: ?? CT ABDOMEN PELVIS WO CONTRAST REASON FOR STUDY: ?? kidney stone history ?? Elevated psa, patient was diagnosed with prostate cancer and had it removed in 04/2022 ?? TECHNIQUE: CT scan of the abdomen and pelvis performed without intravenous and ??without ??oral contrast using helical scanning technique. Reconstructed coronal and sagittal MPR images reviewed. All images stored on PACS. ?? Automated exposure control was used as a dose optimization technique for this examination. COMPARISON: ?? 06/14/2016 REFERENCE: Per ACR white paper recommendations, unless otherwise specified no follow-up imaging is recommended for incidental renal and adrenal lesions per consensus recommendations based on imaging criteria. Further lab evaluation could be pursued based on clinical findings. FINDINGS: The sensitivity for detection of visceral lesions is diminished without the use of intravenous contrast. LOWER CHEST: ?? No significant pulmonary abnormalities. No effusion. ?? Calcified granuloma left lower lobe. LIVER: ?? Normal size. ??7 mm indeterminate low-density lesion in the left hepatic lobe, too small to characterize. GALLBLADDER: ?? Stones. No wall thickening or pericholecystic fluid BILE DUCTS: ?? No intrahepatic or extrahepatic ductal dilatation. SPLEEN: ?? Normal size. ??No focal lesions. PANCREAS: ?? No identified cystic or solid masses. ??No significant calcifications. No adjacent inflammation or peripancreatic fluid collections. Pancreatic duct not dilated. ADRENALS: ?? Normal. KIDNEYS/URINARY TRACT: ?? No identified significant cystic or solid masses. ?? Punctate nonobstructing right renal stones. ??No obstructing renal or ureteral calculus. ??No hydronephrosis or hydroureter. ?There is a 19 mm calcification along the dependent right side of the urinary bladder. GI: ?? No dilated bowel loops. No obvious wall thickening. ??Appendix not visualized. ??No significant diverticular disease. PERITONEUM: ?? No ascites or free air. RETROPERITONEUM: ?? No mass or adenopathy. REPRODUCTIVE: ?? Prostate surgically absent. VASCULATURE: ?? No abdominal aortic aneurysm. MUSCULOSKELETAL: ?? No significant abnormality. OTHER: ?? No other abnormality. IMPRESSION: Punctate nonobstructing right renal stones. No obstructing renal or ureteral calculus. 19 mm calcification along the dependent right side of the urinary bladder. Surgical absence of the prostate gland. 7 mm indeterminate low-density lesion in the left hepatic lobe, too small to characterize. Cholelithiasis. THIS IS AN ELECTRONICALLY VERIFIED FINAL REPORT 02/21/2023 2:04 AM - Electronically signed by ??Jluis Viera M.D. KT: SANDRO D: ??02/21/2023 2:04 AM T: ??02/21/2023 2:04 AM Report ID: [id number] Reading Location: ??[id number] Procedure Note Jluis Viera MD - 02/21/2023 EXAM DESCRIPTION: CT ABDOMEN PELVIS WO CONTRAST REASON FOR STUDY: kidney stone history Elevated psa, patient was diagnosed with prostate cancer and had itremoved in 04/2022 TECHNIQUE: CT scan of the abdomen and pelvis performed without intravenousand without oral contrast using helical scanning technique. Reconstructed coronal and sagittal MPR images reviewed. All images stored on PACS. Automated exposure control was used as a dose optimization technique forthis examination. COMPARISON: 06/14/2016 REFERENCE: Per ACR white paper recommendations, unless otherwise specifiedno follow-up imaging is recommended for incidental renal and adrenal lesionsper consensus recommendations based on imaging criteria. Further labevaluation could be pursued based on clinical findings. FINDINGS: The sensitivity for detection of visceral lesions is diminished withoutthe use of intravenous contrast. LOWER CHEST: No significant pulmonary abnormalities. No effusion. Calcified granuloma left lower lobe. LIVER: Normal size. 7 mm indeterminate low-density lesion in the left hepatic lobe, too small to characterize. GALLBLADDER: Stones. No wall thickening or pericholecystic fluid BILE DUCTS: No intrahepatic or extrahepatic ductal dilatation. SPLEEN: Normal size. No focal lesions. PANCREAS: No identified cystic or solid masses. No significant calcifications. No adjacent inflammation or peripancreatic fluidcollections. Pancreatic duct not dilated. ADRENALS: Normal. KIDNEYS/URINARY TRACT: No identified significant cystic or solid masses. Punctate nonobstructing right renal stones. No obstructing renal orureteral calculus. No hydronephrosis or hydroureter. There is a 19 mmcalcification along the dependent right side of the urinary bladder. GI: No dilated bowel loops. No obvious wall thickening. Appendix not visualized. No significant diverticular disease. PERITONEUM: No ascites or free air. RETROPERITONEUM: No mass or adenopathy. REPRODUCTIVE: Prostate surgically absent. VASCULATURE: No abdominal aortic aneurysm. MUSCULOSKELETAL: No significant abnormality. OTHER: No other abnormality. IMPRESSION: Punctate nonobstructing right renal stones. No obstructing renal orureteral calculus. 19 mm calcification along the dependent right side of the urinarybladder. Surgical absence of the prostate gland. 7 mm indeterminate low-density lesion in the left hepatic lobe, too smallto characterize. Cholelithiasis. THIS IS AN ELECTRONICALLY VERIFIED FINAL REPORT 02/21/2023 2:04 AM - Electronically signed by Jluis Viera M.D. KT: SANDRO Report ID: [id number] Reading Location: [id number] Armen Rodrigues MD IMG CT PROCEDURES Final Result documented in this encounter Visit Diagnoses Diagnosis Kidney stone- Primary Calculus of kidney Kidney stone Calculus of kidney documented in this encounter Care Teams Gauge And Weigh Machine Adjuster Relationship Specialty Start Date End Date John Lozoya MD [address] [id number] PCP - General Family Medicine 04/03/22 documented as of this encounter
--- OUTSIDE RECORDS SUMMARY | 2024-11-07 09:27 | XMS_ITS | Encounter Summary ---
Author Organization [facility] Address [address] [place] [address] Phone Care Team Providers Care Wire Stripper Name Role Phone John Lozoya MD Primary Care Provider [phone] [phone] Encounter Details Date Type Department Care Team (Late st Contact Info) Description 03/08/2023 Orders Only [facility] ([facility]) - [facility] Urology [address] [facility] 11th [place] [address] [place] [address] Armen Rodrigues MD [address] [place] [address] Benign prostatic hyperplasia without lower urinary tract symptoms (Primary Dx) Social History Tobacco Use Types Packs/Day Years Used Date Smoking Tobacco: Never Smokeless Tobacco: Never AUDIT-C Answer Date Recorded Q1: How often do you have a drink containing alc ohol? Monthly or less 03/05/2023 Q2: How many drinks containi ng alcohol do you have on a typical day when you are drinking? 1 or 2 03/05/2023 Q3: How often do you have si x or more drinks on one occasion? 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 Gender Identity Not on file Sexual Orientation Not on file documented as of this encounter Ordered Prescriptions Prescription Sig Dispense Quantity Refills Last Filled Start Date End Date finasteride (PROSCAR) 5 mg tabletIndications: Benign prostatic hyperplasia without lower urinary tract symptoms Take 1 tablet (5 mg total) by mouth daily 30 tablet 11 03/08/2023 06/18/2023 documented in this encounter Plan of Treatment Not on file documented as of this encounter Visit Diagnoses Diagnosis Benign prostatic hyperplasia without lower urinary tract symptoms- Primary documented in this encounter Care Teams Wire Stripper Relationship Specialty Start Date End Date John Lozoya MD [address] [id number] PCP - General Family Medicine 04/03/22 documented as of this encounter
--- OUTSIDE RECORDS SUMMARY | 2024-11-07 09:27 | XMS_ITS | Encounter Summary ---
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 Gender Identity Not on file Sexual Orientation Not on file documented as of this encounter Plan of Treatment Not on file documented as of this encounter Procedures Procedure Name Priority Date/Time Associated Diagnosis Comments URINE CULTURE Routine 03/08/2023 10:33 AM CDT Kidney stone documented in this encounter Results * Urine culture Urine, clean voided (03/08/2023 10:33 AM CDT) Report Final Report: Less than 100,000 colonies/mL (clinically insignificant growth based on current clinical standards) FEDERICO BERNARDO (JARED) Comment:Testing performed by : [facility], [address] [facility], [place]., [address] Organism (CLINICALLY INSIGNIFICANT GROWTH FEDERICO BERNARDO (JARED) Urine, clean voided 03/08/2023 10:33 AM CDT 03/08/2023 9:03 PM CDT Narrative FEDERICO BERNARDO (JARED) - 03/10/2023 7:03 AM CDT Testing performed by [facility] Microbiology Laboratory ([phone]) us Lam Aviles MD LAB MICROBIOLOGY - G ENERAL ORDERABLES Final Result FEDERICO BERNARDO (JARED) [address] [facility] Department [place] [address] documented in this encounter Visit Diagnoses Diagnosis Kidney stone Calculus of kidney documented in this encounter Care Teams Fisher Relationship Specialty Start Date End Date John Lozoya MD [address] [address] PCP - General Family Medicine 04/03/22 documented as of this encounter
--- OUTSIDE RECORDS SUMMARY | 2024-11-07 09:27 | XMS_ITS | Encounter Summary ---
Author Organization [facility] [employer] [facility] Address [address] [place] [address] Phone Care Team Providers Care Creative Manager Name Role Phone John Lozoya MD Primary Care Provider [phone] [phone] Encounter Details Date Type Department Care Team (Late st Contact Info) Description 09/15/2024 Orders Only [facility] Urology [address] [facility] Medical Office [address] [place] [address] Robin Reese MD [address] [facility] [id number] [address] Prostate cancer (HCC) (Primary Dx) Social History Tobacco Use [...] on file 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 Gender Identity Not on file Sexual Orientation Not on file documented as of this encounter Plan of Treatment Scheduled Orders Name Type Priority Associated Diagnoses Orde r Schedule PSA, total and free Lab Routine Prostate cancer (HCC) Expected: 12/16/2024, Expires: 09/15/2025 documented as of this encounter Visit Diagnoses Diagnosis Prostate cancer (HCC)- Primary Malignant neoplasm of prostate documented in this encounter Care Teams Creative Manager Relationship Specialty Start Date End Date John Lozoya MD [address] [place] [address] PCP - General Family Medicine 04/03/22 documented as of this encounter
--- OUTSIDE RECORDS SUMMARY | 2024-11-07 09:27 | XMS_ITS | Encounter Summary ---
Author Organization [facility] [employer] [facility] Address [address] [place] [address] Phone Care Team Providers Care Bedspread Inspector Name Role Phone John Lozoya MD Primary Care Provider [phone] [phone] Reason for Visit * Reason Onset Date Comments standing order for PSA 02/08/2023 Encounter Details Date Type Department Care Team (Late st Contact Info) Description 02/08/2023 Telephone [facility] ([facility]) - [facility] Urology [address] [facility] Advanced Medicine 11th [place] [address] [place] [address] Armen Rodrigues MD [address] [facility] [address] [place] [address] standing order for PSA Social History Tobacco Use Types Packs/Day Years [...] on file 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 Dr Rodrigues told him there was a standing order there, they would not draw PSA was told they had no order. Order placed for PSA I tried to return a call I left a voice mail that order has been placed for a PSA to be done at [facility] at his convenience. documented in this encounter Plan of Treatment Not on file documented as of this encounter Procedures Procedure Name Priority Date/Time Associated Diagnosis Comments PSA SCREEN Routine 06/13/2023 9:30 AM CDT Prostate cancer (HCC) documented in this encounter Results * PSA screen (06/13/2023 9:30 AM CDT) PSA 0.08 < OR = 4.00 ng/mL [facility] Comment: The total PSA value from this [...] the presence or absence of disease. Blood 06/13/2023 9:30 AM CDT 06/13/2023 9:30 AM CDT Narrative [facility] - 06/14/2023 2:07 AM CDT FASTING:NO FASTING: NO us Armen Rodrigues MD LAB BLOOD ORDERABLES Final Resu lt [facility] [address] [facility] [place] [address] documented in this encounter Visit Diagnoses Diagnosis Prostate cancer (HCC)- Primary Malignant neoplasm of prostate documented in this encounter Care Teams Bedspread Inspector Relationship Specialty Start Date End Date John Lozoya MD [address] [place] [id number] PCP - General Family Medicine 04/03/22 documented as of this encounter
--- OUTSIDE RECORDS SUMMARY | 2024-11-07 09:27 | XMS_ITS | Encounter Summary ---
Author Organization [facility] Address [address] [place] [address] Care Team Providers Care Emergency Detail Driver Name Role Phone John Lozoya MD Primary Care Provider [phone] [phone] Reason for Visit * MRI/CAT/PET Scan (Routine) - Closed Specialty Diagnoses / Procedures Referred By Contac t Referred To Contact Radiology Diagnoses Prostate cancer (HCC) Procedures PET/CT Prostate Cancer PSMA Skull to Thigh Armen Rodrigues MD Phone: tel: fax: [address] [address] Referral ID Status Reason Start Date Expiration Date Visits Re quested Visits Authorized [id number] Closed 02/27/2023 08/26/2023 2 2 Encounter Details Date Type Department Care Team (Latest Contact Info) Description 03/07/2023 1:24 PM CDT - 03/07/2023 11:59 PM CDT Hospital Encounter [facility] [address] [place] [address] Discharge Disposition: Discharge to home or self [...] on file 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 Gender Identity Not on file Sexual Orientation Not on file documented as of this encounter Last Filed Vital Signs Vital Sign Reading Time Taken Comments Blood Pressure - - Pulse - - Temperature - - Respiratory Rate - - Oxygen Saturation - - Inhaled Oxygen Concentration - - Weight 81.6 kg (180 lb) 03/07/2023 2:30 PM CDT Height 182.9 cm (6') 03/07/2023 2:30 PM CDT Body Mass Index 24.41 03/07/2023 2:30 PM CDT documented in this encounter Medications at Time of Discharge amLODIPine (NORVASC) 5 mg tabletIndication s:hypertension Take 1 tablet (5 mg total) by mouth every morning 03/17/2022 aspirin 81 mg enteric coated tabletIndication s:prevention of thrombosis,CABG Take 1 tablet (81 mg total) by mouth every morning azelastine (ASTELIN) 137 mcg (0.1 %) nasal sprayIndications :Perennial Allergic Rhinitis Administer 1 spray into each nostril 2 (two) times a day Use in each nostril as directed cholecalciferol (VITAMIN D-3) 2000 unit tabletIndication s:Prevention of Vitamin D Deficiency Take 2 tablets (4,000 Units total) by mouth every morning cyanocobalamin 2,000 mcg tabletIndication s:Prevention of Vitamin B12 Deficiency Take 1 tablet (2,000 mcg total) by mouth every morning ferrous sulfate 325 mg (65 mg of elemental iron) tabletIndication s:Iron Deficiency Anemia Take 1 tablet (325 mg total) by mouth every other day magnesium gluconate 200 mg tabletIndication s:for supplement Take 1 tablet (200 mg total) by mouth every morning metFORMIN (GLUCOPHAGE) 500 mg tabletIndication s:type 2 diabetes mellitus Take 2 tablets (1,000 mg total) by mouth 2 (two) times a day with meals metoprolol tartrate (LOPRESSOR) 50 mg immediate release tabletIndication s:hypertension Take 1 tablet (50 mg total) by mouth 2 (two) times a day 03/17/[address] (PROTONIX) 40 mg EC tabletIndication s:Treatment of Non-Bleeding Gastric Disorder Take 1 tablet (40 mg total) by mouth every morning 03/17/2022 potassium citrate ER (UROCIT-K) 10 mEq (1,080 mg) CR tablet Take 1 tablet (10 mEq total) by mouth every morning for supplement 10/14/2019 ramipriL (ALTACE) 10 mg capsuleIndicatio ns:hypertension Take 1 capsule (10 mg total) by mouth 2 (two) times a day 03/17/2022 rosuvastatin (CRESTOR) 20 mg tabletIndication s:hyperlipidemia Take 1 tablet (20 mg total) by mouth nightly 02/21/2023 zinc gluconate 50 mg tabletIndication s:for supplement Take 1 tablet (50 mg total) by mouth every morning phenazopyridine (PYRIDIUM) 100 mg tablet Take 1 tablet (100 mg total) by mouth 3 (three) times a day as needed for urinary pain (pain with urination) 30 tablet 03/14/2023 3 documented as of this encounter Discharge Disposition Disposition Code Departure Means Destination Discharge to home or self care documented in this encounter Plan of Treatment Not on file documented as of this encounter Procedures Procedure Name Priority Date/Time Associated Diagnosis Comments PET/CT PROSTATE CANCER PSMA SKULL TO THIGH Schedule Routine, Read Routine (OP Routine) 03/07/2023 3:45 PM CDT Prostate cancer (HCC) documented in this encounter Visit Diagnoses Not on filedocumented in this encounter Administered Medications Inactive Administered Medications - up to 3 most recent administrations Medication Order MAR Action Action Date Dose Rate Site F-18 PyL-PYLARIFY (PIFLUFOLASTAT) (PyLARIFY) injection 9 millicurie 9 millicurie, intravenous, Once in imaging, radiopharmaceutical, Starting on Sena 03/07/23 at 1354, For 1 dose Given 03/07/2023 2:18 PM CDT 10.1 millicuries documented in this encounter Orders Medications Ordered That Zach ht Not Have Been Administered Count Last Ordered Date First Ordered Date F-18 PyL-PYLARIFY (PIFLUFOLA STAT) (PyLARIFY) injection 9 millicurie 1 03/07/2023 documented in this encounter Care Teams Emergency Detail Driver Relationship Specialty Start Date End Date John Lozoya MD [address] [address] PCP - General Family Medicine 04/03/22 documented as of this encounter
--- OUTSIDE RECORDS SUMMARY | 2024-11-07 09:27 | XMS_ITS | Encounter Summary ---
Author Organization [facility] [employer] [facility] Address [address] [place] [address] Phone Care Team Providers Care Phlebotomy Services Technician Name Role Phone John Lozoya MD Primary Care Provider [phone] [phone] Reason for Visit * Consultation (Routine) - Closed Specialty Diagnoses / Procedures Referred By Contluly t Referred To Contact Urology Diagnoses Prostate cancer (HCC) Referral, Self Armen Rodrigues MD [address] [place] [address] Phone: tel: fax: Referral ID Status Reason Start Date Expiration Date V isits Requested Visits Authorized [id number] Closed Specialty Services Required 04/03/2022 05/03/2023 99 99 Encounter Details Date Type Department Care Team (Late st Contact Info) Description 06/11/2022 8:40 AM CDT Telemedicine [place] [facility] ([facility]) - [facility] Urology [address] [place] [address] for Advanced Medicine 11th [place] [address] [place] [address] Armen Rodrigues MD [address] [place], [place] [id number] Prostate cancer (CMS/HCC) (HCC) (Primary Dx) Social [...] on file 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 During the visit, I was located at a healthcare facility and the patient was located at his home in the [facility]. The patient visit started at 8:37 AM and ended at 8:45 AM. My total encounter time on 06/11/2022 was 10 minutes which was spent in the activities documented in the note. This includes time spent prior to the visit and after the visitin direct care of the patient. This time does not include time spent in any separately reportable services. The patient has been informed that the visit may not be secure and acknowledged the information. I have explained the option of participating in a telephone or video visit during the COVID-19 public health emergency to the patient. After being given an opportunity to ask questions about and discussthis type of visit, the patient verbally consented to proceeding with the telephone/video visit. The patient understands that this service replaces an office visit and they may be billed and/or responsible for any applicable copayments. rAmen Rodrigues MD Chief Complaint: prostate cancer History of Present Illness: Alexey Gibbs is a 66 y.o. male s/p RALP on 04/2022 - Final path = T2N0, GGG2, 5 mm margin - (Did perform Prolaris on his biopsy tissue with [facility] urologist) - PSA 6.8 ng/mL pre-operatively - PSA undetectable 05/2022 - 0 pads per day - Has noticed some partial spontaneous sexual function Subjective Review of systems: A complete of systems was conducted and was negative except for as explicitly listed in the Historyof Present Illness. Assessment/Plan It was a pleasure speaking with Alexey Gibbs today. Alexey Gibbs is a 66 y.o. male s/p RALP on 04/2022 - Discussed AUA/NCCN guidelines - PSA in 4 months - Follow-up in 4 months - Discussed urinary and sexual function expectations - Offered TEMPUS testing for germline risk documented in this encounter Plan of Treatment Not on file documented as of this encounter Procedures Procedure Name Priority Date/Time Associated Diagnosis Comments PSA SCREEN Routine 10/15/2022 7:14 AM CORNER CUTTER MACHINE OPERATOR Prostate cancer (CMS/HCC) (HCC) documented in this encounter Results * PSA screen (10/15/2022 7:14 AM CORNER CUTTER MACHINE OPERATOR) PSA 0.07 < OR = 4.00 ng/mL [facility] [...] or absence of disease. Blood specimen (specimen) 10/15/2022 7:14 AM CORNER CUTTER MACHINE OPERATOR 10/15/2022 7:15 AM CORNER CUTTER MACHINE OPERATOR Narrative [facility] - 10/16/2022 2:55 AM CORNER CUTTER MACHINE OPERATOR FASTING:YES FASTING: YES us Armen Rodrigues MD LAB BLOOD ORDERABLES Final Resu lt [facility] [address] [place] [address] documented in this encounter Visit Diagnoses Diagnosis Prostate cancer (HCC)- Primary Malignant neoplasm of prostate documented in this encounter Discontinued Medications Medication Sig Discontinue Reason Start Date End Da te acetaminophen (TYLENOL) 500 mg tablet Take 1,000 mg by mouth every 6 (six) hours as needed for pain 06/11/2022 HYDROcodone-acetaminophe n (NORCO) 5-325 mg per tablet Take 1 tablet by mouth every 4 (four) hours as needed for pain 02/19/2022 06/11/2022 oxybutynin (DITROPAN) 5 mg tablet Take 1 tablet (5 mg total) by mouth 3 (three) times a day as needed (bladder spasms) 05/01/2022 06/11/2022 oxyCODONE (ROXICODONE) 5 mg immediate release tabletIndications:Pain Take 1 tablet (5 mg total) by mouth every 4 (four) hours as needed for pain 05/01/2022 06/11/2022 polyethylene glycol (MIRALAX) 17 gram packetIndications:consti pation Take 1 packet (17 g total) by mouth daily for 15 days 05/02/2022 06/11/2022 documented as of this encounter Care Teams Phlebotomy Services Technician Relationship Specialty Start Date End Date John Lozoya MD [address] [address] PCP - General Family Medicine 04/03/22 documented as of this encounter
--- OUTSIDE RECORDS SUMMARY | 2024-11-07 09:27 | XMS_ITS | Encounter Summary ---
Author Organization [facility] [employer] [facility] Address [address] [place] [address] Phone Care Team Providers Care International Logistics Manager Name Role Phone John Lozoya MD Primary Care Provider [phone] Encounter Details Date Type Department Care Team (Late st Contact Info) Description 07/26/2023 Telephone [place] [facility] ([facility]) - [facility] Urology [address] [facility] Advanced Medicine 11th [place] [address] [place] [address] Shaheed Valerio, RN Social History Tobacco Use Types Packs/Day Years [...] on file 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 documented in this encounter Plan of Treatment Not on file documented as of this encounter Visit Diagnoses Not on filedocumented in this encounter Care Teams International Logistics Manager Relationship Specialty Start Date End Date John Lozoya MD [address] [address] PCP - General Family Medicine 04/03/22 documented as of this encounter
--- OUTSIDE RECORDS SUMMARY | 2024-11-07 09:27 | XMS_ITS | Encounter Summary ---
Author Organization [facility] [employer] [facility] Address [address] [place] [address] Phone Care Team Providers Care De Icer Element Winder Name Role Phone John Lozoya MD Primary Care Provider [phone] Encounter Details Date Type Department Care Team (Late st Contact Info) Description 03/05/2024 Orders Only [facility] Urology [address] [facility] Medical Office Building [address] [place] [address] Robin Reese MD [address] [facility] [id number] [address] Prostate cancer (HCC) (Primary Dx) [...] on file 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 The test result will be approximately 20% lower when compared to the equimolar-standardized total PSA ([place]). Comparison of serial PSA results should be interpreted with this fact in mind. This test was performed using the Siemens chemiluminescent method. Values obtained from different assay methods cannot be used interchangeably. PSA levels, regardless of value, should not be interpreted as absolute evidence of the presence or absence of disease. Blood 05/25/2024 7:13 AM CDT 05/25/2024 7:14 AM CDT Robin Reese MD LAB BLOOD ORDERABLES Citlaly l Result [facility] [address] [place] [address] documented in this encounter Visit Diagnoses Diagnosis Prostate cancer (HCC)- Primary Malignant neoplasm of prostate documented in this encounter Care Teams De Icer Element Winder Relationship Specialty Start Date End Date John Lozoya MD [address] [employer] [address] PCP - General Family Medicine 04/03/22 documented as of this encounter
--- OUTSIDE RECORDS SUMMARY | 2024-11-07 09:27 | XMS_ITS | Referral Summary ---
Author Organization [facility] Address [address] [place] [address] Care Team Providers Care Funeral Car Driver Name Role Phone John Lozoya MD Primary Care Provider [phone] [phone] Encounters Date Type Department Care Team Description 09/15/2024 Orders Only [facility] Urology [address] [place] [address] Robin Reese MD Prostate cancer (HCC) (Primary Dx) 09/02/2024 Orders Only [facility] Urology [address] [place] [address] Robin Reese MD Benign prostatic hyperplasia without lower urinary tract symptoms from Last 3 Months Allergies No known active allergies Medications amLODIPine (NORVASC) 5 mg tabletIndication s:hypertension Take 1 tablet (5 mg total) by mouth every morning 2 Active metoprolol tartrate (LOPRESSOR) 50 mg immediate release tabletIndication s:hypertension Take 1 tablet (50 mg total) by mouth 2 (two) times a day [address] (PROTONIX) 40 mg EC tabletIndication s:Treatment of Non-Bleeding Gastric Disorder Take 1 tablet (40 mg total) by mouth every morning 2 Active ramipriL (ALTACE) 10 mg capsuleIndicatio ns:hypertension Take 1 capsule (10 mg total) by mouth 2 (two) times a day 2 Active metFORMIN (GLUCOPHAGE) 500 mg tabletIndication s:type 2 diabetes mellitus Take 2 tablets (1,000 mg total) by mouth 2 (two) times a day with meals Active aspirin 81 mg enteric coated tabletIndication s:prevention of thrombosis,CABG Take 1 tablet (81 mg total) by mouth every morning Active cholecalciferol (VITAMIN D-3) 2000 unit tabletIndication s:Prevention of Vitamin D Deficiency Take 2 tablets (4,000 Units total) by mouth every morning Active zinc gluconate 50 mg tabletIndication s:for supplement Take 1 tablet (50 mg total) by mouth every morning Active cyanocobalamin 2,000 mcg tabletIndication s:Prevention of Vitamin B12 Deficiency Take 1 tablet (2,000 mcg total) by mouth every morning Active ferrous sulfate 325 mg (65 mg of elemental iron) tabletIndication s:Iron Deficiency Anemia Take 1 tablet (325 mg total) by mouth every other day Active azelastine (ASTELIN) 137 mcg (0.1 %) nasal sprayIndications :Perennial Allergic Rhinitis Administer 1 spray into each nostril 2 (two) times a day Use in each nostril as directed Active potassium citrate ER (UROCIT-K) 10 mEq (1,080 mg) CR tablet Take 1 tablet (10 mEq total) by mouth every morning for supplement 9 Active rosuvastatin (CRESTOR) 20 mg tabletIndication s:hyperlipidemia Take 1 tablet (20 mg total) by mouth nightly 3 Active magnesium gluconate 200 mg tabletIndication s:for supplement Take 1 tablet (200 mg total) by mouth every morning Active phenazopyridine (PYRIDIUM) 100 mg tablet Take 1 tablet (100 mg total) by mouth 3 (three) times a day as needed for urinary pain (pain with urination) 30 tablet 3 Active Additional Information Patient not taking.Reported on 05/29/2024 finasteride (PROSCAR) 5 mg tabletIndication s:Benign prostatic hyperplasia without lower urinary tract symptoms Take 1 tablet (5 mg total) by mouth daily 30 tablet 11 4 08/28/20 25 Active Active Problems Problem Noted Date Diagnosed Date Bladder stone 03/05/2023 Prostate cancer 04/06/2022 Overview (04/06/2022): Added automatically from request for surgery [id number] Hypokalemia 02/05/2013 Atherosclerosis of coronary artery 09/16/2012 Immunizations Name Administration Dates Next Due Influenza, Split 11/18/2017 Social History Tobacco Use Types Packs/Day Years [...] on file 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 Gender Identity Not on file Sexual Orientation Not on file Last Filed Vital Signs Vital Sign Reading [...] Mass Index 24.41 03/07/2023 2:30 PM CDT Plan of Treatment Not on file Medical Devices Implanted Type Area Supervisor Whipped Topping Device Identifier Shelf Expiration Date Model / Serial / Lot Stent-07/01/2009 Implanted:Qty: 1 on 07/01/2009 Stent Heart [employer] Procedures Procedure Name Priority Date/Time Associated Diagnosis Comments PSA, TOTAL AND FREE Routine 09/10/2024 7 :06 AM CDT Prostate cancer (HCC) from Last 3 Months Results * PSA, total and free (09/10/2024 7:06 AM CDT) PSA 0.2 < OR = 4.0 ng/mL [facility] [place] Brent Wu PSA, free <0.1 ng/mL [facility] [place] Brent Wu PSA, free UNABLE TO CALCULATE >25 % (calc) [facility] Comment: The free PSA level is below detectable limits. We are unable to calculate a % free PSA. PSA(ng/mL) ?Free PSA(%) ? Estimated(x) Probability ? of Cancer(as%) 0-2.5 ?(*) ? Approx. 1 2.6-4.0(1) ? 0-27(2) ? 24(3) 4.1-10(4) ?0-10 ?56 ? 11-15 ? 28 ? 16-20 ? 20 ? 21-25 ? 16 ? >or =26 ? 8 >10(+) ? N/A ?>50 References:(1)Sandra et al.:Urology 60: 469-474 (2002) ? (2)Sandra et al.:J.Urol 168: 922-925 (2001) ?Free PSA(%) ?? Sensitivity(%) ??Specificity(%) ?< or = 25 ?85 ?19 ?< or = 30 ?93 ? 9 ? (3)Sandra et al.:DREAD 277: [id number] (1996) ? (4)Sandra et al.:DREAD 279: 2570-8371 (1997) (x)These estimates vary with age, ethnicity, [...] mind. PSA was performed using the Kevin [place] Immunoassay method. Values obtained from different assay methods cannot be used interchangeably. PSA levels, regardless of value, should not be interpreted as absolute evidence of the presence or absence of disease. Blood 09/10/2024 7:06 AM CDT 09/10/2024 7:07 AM CDT Narrative [facility] - 09/14/2024 5:09 PM CDT FASTING:YES FASTING: YES us Robin Reese MD LAB BLOOD ORDERABLES Citlaly sahil Result [facility] [address] [place] [address] from Last 3 Months Insurance [employer] MEDICARE [facility] MEDICARE Advance Directives For more information, please contact: [phone] * Full Code (Latest Code Status on File) Date Activated Date Inactivated Comments 05/01/2022 12:05 PM 05/02/2022 3:38 PM Care Teams Funeral Car Driver Relationship Specialty Start Date End Date John Lozoya MD [address] [id number] PCP - General Family Medicine 04/03/22
--- OUTSIDE RECORDS SUMMARY | 2024-11-07 09:27 | XMS_ITS | Clinical Summary ---
Author Organization [facility] Address [address] [place] [address] Care Team Providers Care Cyber Security Architect Name Role Phone John Lozoya MD Primary Care Provider [phone] [phone] Allergies No known active allergies Medications amLODIPine [...] (04/06/2022): Added automatically from request for surgery [id number] Hypokalemia 02/05/2013 Atherosclerosis of coronary artery 09/16/2012 Encounters Date Type Department Care Team Description 09/15/2024 Orders Only [facility] Urology [address] [place] [address] Office [address] [place] [address] Robin Reese MD Prostate cancer (HCC) (Primary Dx) 09/02/2024 Orders Only [facility] Urology [address] Medical Office [address] [place] [address] Robin Reese MD Benign prostatic hyperplasia without lower urinary tract symptoms from Last 3 Months Immunizations Name Administration Dates Next Due Influenza, Split 11/18/2017 Surgical History Surgery Date Site/Laterality Comments CORONARY ARTERY BYPASS GRAFT 11/18/2012 - 11/17/2013 PROSTATECTOMY 05/01/2022 CARDIAC STENT PLACEMENT 11/18/2008 - 11/17/2009 APPENDECTOMY 11/18/2017 - 11/17/2018 MOHS SURGERY 11/18/2020 - 11/17/2021 Left cheek BLADDER STONE REMOVAL 11/18/2017 - 11/17/2018 COLONOSCOPY 11/18/2021 - 11/17/2022 Medical History Medical History Date Comments Cancer (CMS/HCC) (HCC) Type 2 diabetes mellitus (HCC) Coronary artery disease Hypertension Hyperlipidemia Motion sickness Family History Medical History Relation Name Comments Anesthesia problems Neg Hx Social History Tobacco Use Types Packs/Day Years [...] on file 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 Gender Identity Not on file Sexual Orientation Not on file Obstetrics History Last Filed Vital Signs Vital Sign Reading [...] 03/07/2023 2:30 PM CDT Plan of Treatment Health Maintenance Due Date Last Done Comments Colon Cancer Screening-Colonoscopy 1955 Depression Screening 1954 Hepatitis C Screening 1954 DTaP/Tdap/Td Vaccine (1 - Tdap) 1965 Hepatitis B Screening 1972 Zoster Vaccine (1 of 2) 2004 Pneumococcal vaccine 65+ (1 of 1 - PCV) 2019 Well Visit 65+ 2019 Fall Risk Assessment 03/14/2024 03/14/2023 Covid-19 Vaccine (4 - 2023-2 5 season) 2024 10/06/2021, 02/24/2021, 01/27/2021 Influenza Vaccine (#1) 2024 11/18/2017 Prostate Cancer Screening-PSA Discontinued , 05/25/2024, 02/22/2024, Additional history exists Medical Devices Implanted Type Area Ibm Mainframe Developer Device Identifier Shelf Expiration Date Model / Serial / Lot Stent-07/01/2009 Implanted:Qty: 1 on 07/01/2009 Stent Heart [employer] Procedures Procedure Name Priority Date/Time Associated Diagnosis Comments PSA, TOTAL AND FREE Routine 09/10/2024 7 :06 AM CDT Prostate cancer (HCC) from Last 3 Months Results * PSA, total and free (09/10/2024 7:06 AM CDT) PSA 0.2 < OR = 4.0 ng/mL [facility] PSA, free <0.1 ng/mL [facility] PSA, free UNABLE TO CALCULATE >25 % (calc) [facility] Comment: The free PSA level [...] ? 8 >10(+) ? N/A ?>50 References:(1)Sandra sky al.:Urology 60: 469-474 (2002) ? (2)Sandra sky al.:J.Urol 168: 922-925 (2002) ?Free PSA(%) ?? Sensitivity(%) ??Specificity(%) ?< or = 25 ?85 ?19 ?< or = 30 ?93 ? 9 ? (3)Sandra et al.:DREAD 277: 1585-6013 (1996) ? (4)Janiceona et al.:DREAD 279: 7654-1142 (1997) (x)These estimates vary with age, ethnicity, [...] 7:06 AM CDT 09/10/2024 7:07 AM CDT [facility] - 09/14/2024 5:09 PM CDT FASTING:YES FASTING: YES us Robin Reese MD LAB BLOOD ORDERABLES Citlaly sahil Result Performing Organization Address City/State/[facility] Co de Phone Number [facility] [address] [place] [address] from Last 3 Months Insurance [employer] MEDICARE T MEDICARE Advance Directives For more information, please contact: [phone] * Full Code (Latest Code Status on File) Date Activated Date Inactivated Comments 05/01/2022 12:05 PM 05/02/2022 3:38 PM Care Teams Cyber Security Architect Relationship Specialty Start Date End Date John Lozoya MD [address] [id number] PCP - General Family Medicine 04/03/22
--- OUTSIDE RECORDS SUMMARY | 2024-11-07 09:27 | XMS_ITS | Encounter Summary ---
Author Organization [facility] [facility] Address [address] [place] [address] Phone Care Team Providers Care Vegetable Picker Name Role Phone John Lozoya MD Primary Care Provider [phone] [phone] Reason for Visit * Consultation (Routine) - Closed Specialty Diagnoses / Procedures Referred By Contluly t Referred To Contact Urology Diagnoses Prostate cancer (HCC) Referral, Self Armen Rodrigues MD [address] [place] [address] Phone: tel: fax: Referral ID Status Reason Start Date Expiration Date V isits Requested Visits Authorized [id number] Closed Specialty Services Required 04/03/2022 05/03/2023 99 99 Encounter Details Date Type Department Care Team (Late st Contact Info) Description 10/22/2022 10:40 AM [facility] ([facility]) - [facility] Urology [facility] Advanced Medicine 11th [place] [address] [place] [address] Armen Rodrigues MD [address] [place], [place] [id number] Prostate cancer (CMS/HCC) (HCC) (Primary Dx) Social [...] on file 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 During the visit, I was located at a healthcare facility and the patient was located at his home in the [facility]. The patient visit started at 11:04 AM and ended at 11:11 AM. My total encounter time on 10/22/2022 was 10 minutes which was spent in the activities documented in the note. This includes time spent prior to the visit and after the visit in direct care of the patient. This time does not include time spent in any separately reportableservices. The patient has been informed that the [...] Prolaris on his biopsy tissue with [facility] urologist) - PSA 6.8 ng/mL pre-operatively - PSA undetectable 09/2022 - 0 pads per day - +spontaneous erections (nocturnal) Subjective Review of systems: A complete of systems was conducted and was negative except for as explicitly listed in the Historyof Present Illness. Assessment/Plan It was a pleasure speaking with Alexey M Sai today. Alexey Gibbs is a 66 y.o. male s/p RALP on 04/2022 - Discussed AUA/NCCN guidelines - Discussed urinary and sexual function expectations - PSA in 3 months - Follow-up in 3 months - Discussed the PSA rise is below the detectable range >0.2 ng/mL RED VEHICLE OFFICER documented in this encounter Plan of Treatment Not on file documented as of this encounter Procedures Procedure Name Priority Date/Time Associated Diagnosis Comments PSA SCREEN Routine 02/08/2023 7:11 AM CDT Prostate cancer (CMS/HCC) (HCC) documented in this encounter Results * PSA screen (02/08/2023 7:11 AM CDT) PSA 0.13 < OR = 4.00 ng/mL [facility] Comment: The total PSA value [...] the presence or absence of disease. Blood 02/08/2023 7:11 AM CDT 02/08/2023 7:13 AM CDT Narrative [facility] - 02/09/2023 3:25 AM CDT FASTING:NO FASTING: NO us Armen Rodrigues MD LAB BLOOD ORDERABLES Final Resu lt [facility] [address] [place] [address] documented in this encounter Visit Diagnoses Diagnosis Prostate cancer (HCC)- Primary Malignant neoplasm of prostate documented in this encounter Care Teams Vegetable Picker Relationship Specialty Start Date End Date John Lozoya MD [address] [address] PCP - General Family Medicine 04/03/22 documented as of this encounter
--- OUTSIDE RECORDS SUMMARY | 2024-11-07 09:27 | XMS_ITS | Encounter Summary ---
Author Organization [facility] Healthcare Address [address] [place] [address] Care Team Providers Care Technical Engineer Name Role Phone John Lozoya MD Primary Care Provider [phone] [phone] Reason for Visit * Auth/Cert (Routine) Specialty Diagnoses / Procedures Referred By Contac t Referred To Contact Diagnoses Bladder stone Bladder stone [N21.0] Procedures NC CYSTOSCOPY,REMV URETERAL STONE LASER - LITHOTRIPSY - THULIUM CYSTOLITHOPAXY Referral ID Status Reason Start Date Expiration Date Visits Re quested Visits Authorized [id number] 1 1 Encounter Details Date Type Department Care Team (Late st Contact Info) Description 03/14/2023 7:15 AM CDT - 03/14/2023 9:15 AM CDT Surgery [facility] Operating Room [address] [place] [address] Lam Aviles MD [address], [facility] 4 [facility] [address] [place] [address] LASER - LITHOTRIPSY - THULIUM Surgery Details Date/Time Status Location OR Service Patient Class Case Cl ass Case Type Trauma Case? 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 FAQs (frequently asked questions) [...] physical therapy, we are available to assist: [facility] STAR: [facility] [phone] [place] [phone] [facility] [phone] How are some things that you can [...] given by your doctor or other health medicare biller. * Attachments The following attachments cannot be sent through Care Everywhere. * Bladder Stones (AfterCare(R) Instructions(ER/ED)) (Swiss) * Bladder Stones (General Information) (Swiss) documented in this encounter Medications at Time [...] Laterality Date APPENDECTOMY 2018 BLADDER STONE REMOVAL 2018 CARDIAC STENT PLACEMENT 2008 COLONOSCOPY 2021 CORONARY [...] 99 % Most Recent : Vitals: 03/14/23 06 BP: Pulse: 70 Resp: 14 Temp: 36.6 [...] CDT Operative Report SURGEON: Lam Aviles MD Curatorial Specialist: Amna Clark MD SURGICAL TEAM: Hiv Prevention Specialist: Mayr Jaffe RN Scrub: Rossana Yan [facility] Hiv Prevention Specialist: Sahara Mckeon RN DATE OF SURGERY : [...] and draped in usual fashion. A 26 Macedonian continuous-flow resectoscope sheath was advanced through the urethra. There was some resistance of the meatus so urethral sounds were utilized to dilate the urethral meatus to 28 Macedonian. The scope was then advanced through the [...] Preoperative Assessment and Planning CPAP Clinic Location: [facility] The night before your surgery: [...] Planning Perioperative Nursing Note Telephone Preoperative Evaluation ([facility]) - TELEPHONE ONLY, NO PHYSICAL EXAM Date: [...] morning Implants Stent Stent-07/01/2009 - Implanted Heart Airline Hostess: Valued Relationships As of 04/27/2022 Status: Implanted SKIN Piercings [...] DNR/DNI Order: No Patient Requests Assistance: No Communication/Corn Cutter Needs Communication Barriers: Visual Communication Needs: Glasses Assistive Devices/DME: Eyeglasses (Readers) Hearing - Right Ear: Functional Hearing - Left Ear: Functional Discharge Planning Type of Residence: Private residence Living Arrangements: Spouse/significant other Support Systems: Spouse/significant other Assistance Needed: His will drive him and help care for him after surgery. 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 Arrival time and surgical time will be provided to the patient by their surgeon. You should wear clothing that is clean, loose, comfortable and easy to get in and out of on the dayof surgery. You should remove nail coverings, artificial nails and nail omani prior to the day of surgery. You should leave your valuables and any jewelry at home. No metal or piercings are allowed in the operating room. You should bring your insurance card, a photo ID (example: Aircraft Motor Mechanic's License) and a method of payment for [...] Chart. If you are having surgery at [facility], please arrive on the day of surgery [...] Pathway to [facility] by the followinglink: [email or web address] How To Prepare Your Skin For Surgery [...] Remove nail coverings, artificial nails and nail omani. Place clean linens on your bed the [...] questions, please call the CPAP Staff at [phone], Saturday-Saturday 8am-4:30pm. All patients should read the below section: All visitors/patients are being asked to wear a clean face mask when entering the hospital. COVID 19 Updates & Visitor Policy: Please access [email or web address] for the most updated information. Information on [facility]: Please view [email or web address] (Patient & Visitor Information) for additional details regarding Advanced Directive forms, AWARE, directions, parking information, lodging, Internet access, dining and more. Information on [facility] or [facility] ([facility]): Please view [email or web address] (Patient and Visitor Information) for parking/directions and more. For MyChart information, to activate account or password recovery, please go to [email or web address] or call [phone] (toll-free: [phone]). Information for Suicide Prevention: National Suicide Prevention Lifeline (1-730- 449-ZEPR (8892)). Surgery Times: For patients having surgery @ [facility], [facility] or [facility] ([facility]), if your surgeon's office has not notified you of your surgery time by NOON THE BUSINESS DAY BEFORE your surgery, please call [phone] and ask for your surgeon's office Dr. [...] POC 101 70 - 199 mg/dL [facility] Comment: Interpretive Data Glucose is assumed to be non-fasting. Fasting Glucose reference ranges are: 0 - 150 years: ??70 mg/dL - 99 mg/dL Current interpretive data was last revised on 2014. POC Performer [id number] [facility] POC Device Number [id number] [facility] Blood 03/14/2023 8:16 AM CDT 03/14/2023 8:16 AM CDT us Lam Aviles MD LAB POCT ORDERABLES - DEVICE Final Result [facility] [address] [facility] Department [place] [address] * Surgical pathology (03/14/2023 7:53 AM CDT) Tissue (Bladder Stone) 03/14/2023 7:53 AM CDT Comment:Sent Fresh Narrative PATHOLOGY [facility] - 03/15/2023 4:26 PM CDT EPIC results best viewed via link to PDF [facility] Bernarda Chicas Laboratory [place] [address] Note to Patients: This report may contain [...] Gender: ??M : ??1955 (Age: 67) Address: ??[address] [place] [address], [place], [place] ??[address] Hospital #: ??[id number] Taken:03/14/2023 Received:03/14/2023 Reported: 03/15/2023 Patient Type: BWC EP SAME Client ?[facility] Service: Surgery Location: Physician(s): ??Melissa Kapoor M.D. Diagnosis: Bladder stone, stone, removal ? - Lithiasis (gross examination only, sent for chemical analysis) [facility]/03/14/2023 14:43 By this signature, I attest that [...] interpretation for this case was performed at [facility], Department of Surgical Pathology, [address] [facility] [place], [place] [id number], ??[place], [place] ??[address] ?? CLIA # [id number] The performance characteristics of some immunohistochemical stains, fluorescence in-situ hybridization tests and immunophenotyping by flow cytometry cited in this report (if any) were determined by the Surgical Pathology and Flow Cytometry Departments at [facility] as part of an ongoing quality intern program and in compliance with federally mandated [...] Surgical Pathology and Flow Cytometry Departments of [facility]. ??It has not been cleared or approved by the U. S. Food and Drug Administration. IMAGES AND SCANNED DOCUMENTS, IF INCLUDED, ONLY VIEWABLE IN PDF VERSION OF REPORT Lam Aviles MD LAB PATHOLOGY ORDERA WINIFREDS Final Result PATHOLOGY [facility] [phone] * POC ISTAT (03/14/2023 7:10 AM CDT) [facility] Hct, POC 35 39.0 - 52.0 % [facility] Hgb, POC 11.9 g/dL [facility] Comment: Interpretive data. No reference ranges established. The Hemoglobin is a calculated value based on the measured Hematocrit. Current interpretive data last reviewed 2015. POC Device Number [id number] [facility] POC Performer [id number] [facility] Blood 03/14/2023 7:10 AM CDT 03/14/2023 7:10 AM CDT Lam Aviles MD LAB BLOOD ORDERABLES Final Result Performing Organization Address [facility] de Phone Number [facility] [address] [facility] [place] [address] * POC ISTAT (03/14/2023 6:41 AM CDT) [facility] K POC 4.2 3.3 - 4.9 mmol/L [facility] Comment: Interpretive Data This method is not able to assess for hemolysis, which may falsely increase potassium concentrations. If further testing is needed to evaluate this result, consider in-laboratory plasma potassium. Current Interpretive Data was last revised on 2022. POC Device Number [id number] [facility] POC Performer [id number] [facility] Blood 03/14/2023 6:41 AM CDT 03/14/2023 6:41 AM CDT Lam Aviles MD LAB BLOOD ORDERABLES Final Result Performing Organization Address [facility] de Phone Number [facility] [address] [facility] [address] [place], [place] [id number] * POCT glucose (03/14/2023 6:38 AM CDT) [facility] Glucose, POC 113 70 - 199 mg/dL [facility] Comment: Interpretive Data Glucose is assumed to be non-fasting. Fasting Glucose reference ranges are: 0 - 150 years: ??70 mg/dL - 99 mg/dL Current interpretive data was last revised on 2014. POC Performer [id number] [facility] LE[facility] AN[facility] POC Device Number [id number] [facility] Blood 03/14/2023 6:38 AM CDT 03/14/2023 6:38 AM CDT us Lam Aviles MD LAB POCT ORDERABLES - DEVICE Final Result [facility] [address] [facility]. [place] [address] documented in this encounter Visit Diagnoses Diagnosis Bladder stone- Primary Other calculus in bladder Bladder stone Other calculus in bladder documented [...] 6:39 AM CDT 30 mL/hr 30 mL/hr sodium chloride 0.9% irrigation As needed, Starting on Sena 03/14/23 at 0753, Intra-Op Given 03/14/2023 7:53 AM CDT 3,000 mL Surgical Site documented in this encounter Discontinued Medications Medication [...] administered by the anesthesia staff (Anesthesiologist or CRACKER DOUGH MIXER), Starting on Sena 03/14/23 at 0635, For [...] mL in sterile water (premix) 2,000 mg 03/14/2023 diphenhydrAMINE (BENADRYL) i njection 12.5 mg 03/14/2023 famotidine (PEPCID) injection 20 mg 03/14 fentaNYL (SUBLIMAZE) preserv ative free injection 25 mcg 03/14/2023 hydrALAZINE (APRESOLINE) injection 5 mg 1 0 03/14/2023 HYDROcodone-acetaminophen (N ORCO) 5-325 mg per tablet 1 tablet 1 03/14/2023 HYDROmorphone (DILAUDID) injection 0.2 mg 03/14/2023 labetaloL (NORMODYNE,TRANDAT E) injection 5 mg 03/14/2023 Lactated Ringer's (LR) infusion 1 lidocaine [...] 023 sodium chloride 0.9% flush 0.5-20 mL 1 02/17 Diet Count Last Ordered Date First Orde red Date ADULT DISCHARGE DIET 1 03/14/2023 Nursing Count Last Ordered Date First Orde red Date DISCHARGE ACTIVITY 1 03/14/2023 DISCHARGE CALL PROVIDER 5 03/14/2023 Discharge Count Last Ordered Date First Orde red Date DISCHARGE PATIENT 1 03/14/2023 documented in this encounter Care Teams Technical Engineer Relationship Specialty Start Date End Date John Lozoya MD [address] [phone] PCP - General Family Medicine 04/03/22 documented as of this encounter
--- OUTSIDE RECORDS SUMMARY | 2024-11-07 09:27 | XMS_ITS | Encounter Summary ---
Author Organization [facility] Healthcare Address [address] [place] [address] Care Team Providers Care Athletic Equipment Custodian Name Role Phone John Lozoya MD Primary Care Provider [phone] -[phone] Reason for Referral * MRI/CAT/PET Scan (Routine) - Closed Specialty Diagnoses / Procedures Referred By Contac t Referred To Contact Radiology Diagnoses Prostate cancer (HCC) Procedures PET/CT Prostate Cancer PSMA Skull to Thigh Armen Rodrigues MD Phone: tel: fax: [address] [address] Referral ID Status Reason Start Date Expiration Date Visits Re quested Visits Authorized [id number] Closed 02/27/2023 08/26/2023 2 2 Reason for Visit * MRI/CAT/PET Scan (Routine) - Closed Specialty Diagnoses / Procedures Referred By Contac t Referred To Contact Radiology Diagnoses Prostate cancer (HCC) Procedures PET/CT Prostate Cancer PSMA Skull to Thigh Armen Rodrigues MD Phone: tel: fax: [address] [address] Referral ID Status Reason Start Date Expiration Date Visits Re quested Visits Authorized [id number] Closed 02/27/2023 08/26/2023 2 2 Encounter Details Date Type Department Care Team (Latest Contact Info) Description 03/07/2023 1:24 PM CDT - 03/07/2023 11:59 PM CDT Hospital Encounter [facility] ([facility]) [address] [place], [place] [id number] Prostate cancer (HCC) Discharge Disposition: Discharge to home or self [...] on file 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 Dictated by: Guanakito Paz M.D. The radiology attending physician has personally reviewed this study, and had reviewed and/or edited this written report and agrees with it. Electronically signed by: MD Alyson Cannon 03/07/2023 5:32 PM CDT EXAMINATION: ??PSMA-PET/CT DATE OF STUDY: 03/07/2023 SCANNER: [facility] RADIOPHARMACEUTICAL: ??10.1 mCi F-18 DCFPyL (Piflufolastat) i.v. Injection site: Right antecubital HISTORY: ??67-year-old man with prostate cancer diagnosed on February 2022. ??[place] 3+4 = 7 post radical prostatectomy April 2022.. ??The most recently obtained PSA on ??02/08/2023 ??is 0.13 ng/mL (previously 0.07 (11/14/2022) and 0.04 (05/29/2022)). ??The study is requested for restaging of documented biochemically recurrent prostate cancer. Subsequent treatment strategy. TECHNIQUE: ??After intravenous administration of tracer, noncontrast CT images were obtained for attenuation correction and for fusion with emission PET images to allow for anatomical localization of PET findings. ??Emission PET images were then obtained. ??The study was interpreted on the [email or web address] workstation. ?? Scanned area: mid thighs to skull vertex; the time from injection to start of imaging the time from injection to start of imaging for this scan position was 61 minutes. REFERENCE TISSUE MAXIMUM SUVs: ??Parotid gland 20; Liver 8.9; Blood pool 2.3 Focal PSMA tracer uptake is graded as follows: * ??Faint: above background to blood pool * ??Mild: above blood pool to liver * ??Moderate: above liver to salivary glands * ??Intense: similar to or above salivary glands COMPARISON: CT abdomen pelvis without contrast 02/20/2023; MRI pelvis 12/14/2021 FINDINGS: ?? Prostate/Prostate bed: ??No abnormal tracer uptake seen. Regional lymph nodes: No abnormal tracer uptake seen. Extra-pelvic lymph nodes: No abnormal tracer uptake seen. Bone: No abnormal tracer uptake seen. Visceral: No abnormal tracer uptake seen. Additional CT findings: Atherosclerotic calcifications are present in the proximal internal carotid arteries. Thoracic aorta is atherosclerotic but nonaneurysmal. Multivessel coronary artery atherosclerotic calcifications. Postoperative changes of median sternotomy. Subcentimeter left partially calcified lower lobe granulomas. Tiny gallstones are present in the gallbladder. Large stone is present in the decompressed urinary bladder. Abdominal aorta is atherosclerotic. Multilevel level degenerative changes are present in the spine. Procedure Note James Lawton MD - 03/07/2023 EXAMINATION: PSMA-PET/CT DATE OF STUDY: 03/07/2023 SCANNER: [facility] RADIOPHARMACEUTICAL: 10.1 mCi F-18 DCFPyL (Piflufolastat) i.v. Injection site: Right antecubital HISTORY: 67-year-old man with prostate cancer diagnosed on February 2022. [place] 3+4 = 7 post radical prostatectomy April 2022.. The most recently obtained PSA on 02/08/2023 is 0.13 ng/mL (previously 0.07 (11/14/2022) and 0.04 (05/29/2022)). The study is requested for restaging of documented biochemically recurrent prostate cancer. Subsequent treatment strategy. TECHNIQUE: After intravenous administration of tracer, noncontrast CT images were obtained for attenuation correction and for fusion with emission PET images to allow for anatomical localization of PET findings. Emission PET images were then obtained. The study was interpreted on the [email or web address] workstation. Scanned area: mid thighs to skull vertex; the time from injection to start of imaging the time from injection to start of imaging for this scan position was 61 minutes. REFERENCE TISSUE MAXIMUM SUVs: Parotid gland 20; Liver 8.9; Blood pool 2.3 Focal PSMA tracer uptake is graded as follows: * Faint: above background to blood pool * Mild: above blood pool to liver * Moderate: above liver to salivary glands * Intense: similar to or above salivary glands COMPARISON: CT abdomen pelvis without contrast 02/20/2023; MRI pelvis 12/14/2021 FINDINGS: Prostate/Prostate bed: No abnormal tracer uptake seen. Regional lymph nodes: No abnormal tracer uptake seen. Extra-pelvic lymph nodes: No abnormal tracer uptake seen. Bone: No abnormal tracer uptake seen. Visceral: No abnormal tracer uptake seen. Additional CT findings: Atherosclerotic calcifications are present in the proximal internal carotid arteries. Thoracic aorta is atherosclerotic but nonaneurysmal. Multivessel coronary artery atherosclerotic calcifications. Postoperative changes of median sternotomy. Subcentimeter left partially calcified lower lobe granulomas. Tiny gallstones are present in the gallbladder. Large stone is present in the decompressed urinary bladder. Abdominal aorta is atherosclerotic. Multilevel level degenerative changes are present in the spine. IMPRESSION: No abnormal tracer uptake to suggest residual or metastatic disease. Dictated by: Guanakito Paz M.D. The radiology attending physician has personally reviewed this study, and had reviewed and/or edited this written report and agrees with it. Electronically signed by: James Lawton MD Armen Rodrigues MD IMG PET PROCEDURES Final Result documented in this encounter Visit Diagnoses Diagnosis Prostate cancer (HCC) Malignant neoplasm of prostate documented in this encounter Care Teams Athletic Equipment Custodian Relationship Specialty Start Date End Date John Lozoya MD [address] [address] PCP - General Family Medicine 04/03/22 documented as of this encounter
--- OUTSIDE RECORDS SUMMARY | 2024-11-07 09:27 | XMS_ITS | Encounter Summary ---
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 documented in this encounter Plan of Treatment Not on file documented as of this encounter Visit Diagnoses Not on filedocumented in this encounter Care Teams Textile Technical Officer Relationship Specialty Start Date End Date John Lozoya MD [address] [address] PCP - General Family Medicine 04/03/22 documented as of this encounter
--- OUTSIDE RECORDS SUMMARY | 2024-11-07 09:27 | XMS_ITS | Encounter Summary ---
Author Organization [facility] [employer] [facility] Address [address] [place] [address] Phone Care Team Providers Care Custom Shoemaker Name Role Phone John Lozoya MD Primary Care Provider [phone] Encounter Details Date Type Department Care Team (Late st Contact Info) Description 06/11/2022 Telephone [facility] ([facility] - [facility] Urology [address] [facility] Advanced Medicine 11th [place] [address] [place] [id number] Lizbeth Hernandez, RN Social History Tobacco Use Types Packs/Day [...] on file 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
--- OUTSIDE RECORDS SUMMARY | 2024-11-07 09:27 | XMS_ITS | Encounter Summary ---
Author Organization [facility] Healthcare Address [address] [place] [address] Care Team Providers Care Brake Lining Curer Name Role Phone John Lozoya MD Primary Care Provider [phone] Reason for Visit * Auth/Cert (Routine) Specialty Diagnoses / Procedures Referred By Contac t Referred To Contact Diagnoses Bladder stone Bladder stone [N21.0] Procedures MO CYSTOSCOPY,REMV URETERAL STONE LASER - LITHOTRIPSY - THULIUM CYSTOLITHOPAXY Referral ID Status Reason Start Date Expiration Date Visits Re quested Visits Authorized [id number] 1 1 Encounter Details Date Type Department Care Team (Late st Contact Info) Description 03/14/2023 7:13 AM CDT Anesthesia Event [facility] Operating Room [address] [place] [address] [place] [address] [place] [address] Bettina Fox NP [address] [facility] [phone] [place] [address] Anesthesia Record Procedure Summary Procedure Name Responsible Anesthesiologist Anesthesia Start Time Anesthesia Stop Time LASER - LITHOTRIPSY - THULIUM (Pelvis) Brant Poole MD 03/14/23 0713 03/14/23 0817 Events Date Time Event Comment 03/14/2023 0557 In Preop 0657 AN Equip Check 0659 0713 In Room 0713 An Start 0713 An Start Data 0719 An Induction The patient was reevaluated immediately before moderate or deep sedation use and before anesthesia induction. 0722 An Intubation 0727 Quick Note Laser goggles o n patient 0729 Anesthesia Ready 0733 Proc Start 0753 Proc Fin 0800 An Extubation 0806 an stop data 0809 Out of Room 0817 Handoff to RN I completed my handoff to the receiving nurse during which we: 1. Patient identified 2. Responsible provider identified 3. Pertinent medical history reviewed 4. Procedure type and surgical course discussed 5. Intraoperative anesthetic management and any significant issues discussed 6. Expectations and concerns for postop period discussed 7. Questions solicited from receiving nurse 8. Patient disposition at the time of handoff: PACU 0817 An Stop Meds Name Total midazolam 2 mg/2 mL 2 mg fentaNYL PF 100 mcg Lidocaine IV 1% PF 80 mg propofol 150 mg rocuronium 40 mg ePHEDrine 10 mg ondansetron PF 4 mg dexamethasone 4 mg/ml 8 mg ceFAZolin (ANCEF) 1 gram/10 mL in steril e water (premix) 2,000 mg 2,000 mg famotidine (PEPCID) injection 20 mg 20 m g sugammadex 163.2 mg Lactated Ringer's (LR) infusion 1,000 mL * Agents Name O2 N2O Air Sevoflurane Inspired Sevoflurane * Blood No blood administrations on file. Lines, Drains, and Airways Type Details Placement Removal Urethral Catheter Placement Date: 05/01/22; Placement Time: 0737; Inserted by: Dr. Rodrigues; Type: Double-lumen; Balloon Size: 10 mL; Urine Returned: Yes 05/01/22 0737 by Collin Martell RN RETIRED Surgical Site 05/01/22; 0941; Abdomen; 5X, Dermabond; 10/20/24 (Retired LDA, Removed/Completed by Easel with LDA Utility); 1213 (Retired LDA, Removed/Completed by Easel with LDA Utility) 05/01/22 0941 by Collin Martell RN 10/20/24 1213 by Discharge Provider, Automatic Peripheral IV Placement Date: 03/14/23; Placement Time: 0633; Catheter Size: 20 G; Orientation: Anterior, Right; Location: Hand; Site Prep: Chlorhexidine; Inserted by: Ange Serna RN; Insertion Attempts: 1; Removal Date: 03/14/23; Removal Time: 09; Removal Reason: Discharge 03/14/23 0633 by Jennifer Soler RN 03/14/23 0900 by Teresa Rain RN ETT Placement Date: 03/14/23; Placement Time: 07 (created via procedure documentation); Mask Ventilation: 1; Technique: Direct laryngoscopy; Type: ETT - single; Single Lumen Tube Size: 7.5 mm; Cuffed: Yes; Laryngoscope: Aurea; Blade Size: 4; Location: Oral; Grade View: Grade I; Insertion Attempts: 1; Placement Verification: Auscultation, Capnometry; Removal Date: 03/14/23; Removal Time: 0800 03/14/23 0738 by Hakeem Rivera CRNA 03/14/23 0800 by Hakeem Rivera CRNA RETIRED Surgical Site 03/14/23; 0740; Penis; 10/20/24 (Retired LDA, Removed/Completed by Easel with LDA Utility); 1213 (Retired LDA, Removed/Completed by Easel with LDA Utility) 03/14/23 0740 by Sahara Mckeon RN 10/20/24 1213 by Discharge Provider, Automatic documented in this encounter Social History Tobacco [...] on file 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 Gender Identity Not on file Sexual Orientation Not on file documented as of this encounter OR Notes * Anesthesia Postprocedure Evaluation - Brant Poole MD - 03/14/2023 10:18 AM CDT Patient: Alexey Gibbs Procedure Summary Date: 03/14/23 Room / Location: [facility] Anesthesia Start: 712 Anesthesia Stop: 816 Procedures: LASER - LITHOTRIPSY - THULIUM (Pelvis) CYSTOLITHOPAXY (Bladder) Diagnosis: Bladder stone (Bladder stone [N21.0]) Surgeons: Lam Aviles MD Responsible Provider: Brant Poole MD Anesthesia Type: general ASA Status: 3 Anesthesia Type: general Last vitals BP 139/78 Pulse 74 Temp (!) 35.7 ??C (96.3 ??F) Resp 9 SpO2 96% Anesthesia Post Evaluation Patient location during evaluation: PACU Patient participation: complete - patient participated Level of consciousness: fully awake Pain score: 0 Pain management: adequate Airway patency: adequate Evidence of recall: no Cardiovascular status: hemodynamically stable and acceptable Respiratory status: acceptable and room air Hydration status: acceptable Pt is: normothermic Nausea/Vomiting status: none No notable events documented. * Anesthesia Procedure Notes - Hakeem Rivera CRNA - 03/14/2023 7:37 AM CDT Associated Order(s): Airway Airway Patient location: OR Urgency: elective Indications for airway management: anesthesia Difficult airway: no Emergent airway documentation: Risks and benefits discussed: yes Consent obtained: yes Consent given by: patient Airway prep: Preoxygenated: yes Patient position: sniffing Mask difficulty assessment: 1 - vent by mask Spontaneous ventilation during airway: absent Sedation level during airway: GA Final airway details: Final airway type: endotracheal airway Tube type: ETT ETT size: 7.5 mm Cuffed: yes Technique used for successful ETT placement: direct laryngoscopy Insertion site: oral Blade type: Aurea Blade size: 4 Cormack-Lehane (direct): grade I - full view of glottis Cuff inflated with: air ETT to teeth: 22 cm Placement verified by: auscultation and CO2 detection Airway secured with: silk tape Number of attempts: 1 * Anesthesia Preprocedure Evaluation - Brant Poole MD - 03/06/2023 10:32 AM CDT Images from the original note were not included. [facility] Preoperative Assessment and Planning Preoperative Evaluation Record Evaluation type/location: TPAP from [facility] Planned procedure site: [facility] OR Date: 03/06/23 NOTE: This note represents a preoperative evaluation initiated via telephone interview. NO PHYSICALEXAM was performed at the time of initial assessment. A physical exam may be added to this note anddocumented below. Anesthesia Evaluation Alexey Gibbs is a 67 y.o. male Procedure(s): LASER - LITHOTRIPSY - THULIUM CYSTOLITHOPAXY HISTORY HPI 67 y/o male being evaluated for ??LASER - LITHOTRIPSY - THULIUM (Pelvis), CYSTOLITHOPAXY. Past Medical History Information obtained from: patient and chart. Neurological Pertinent negatives: seizures; neuromuscular disease; CVA/stroke; TIA; ICA stenosis; psychiatric history and carotid artery stent Cardiovascular + Hypertension (does not check BP at home ) Hypertension year diagnosed: 1999. + Hyperlipidemia (statin) + CAD + CABG (x 4) - Prior CABG date: 2012. + Drug-eluting stent(s) (LAD) - Prior stent(s) date: 2008. + Other arrhythmia - RBBB. Pertinent negatives: NE ; valvular heart disease; atrial fibrillation; pacemaker/ICD; DVT/PE; negative for CHF; bare metal stent(s) and unknown stent(s) type Comments: Follows with Dr. Ehsan Scott, cardiology at [facility], yearly Respiratory Pertinent negatives: COPD; asthma; sleep apnea (NATHALIE); no O2 use outside the hospital and non-smoker Hepatic / Heme + History of anemia (Iron supplement) - iron deficiency Pertinent negatives: liver disease Gastrointestinal + GERD - on daily therapy. Asymptomatic. Renal / + Nephrolithiasis Pertinent negatives: renal disease and dialysis Musculoskeletal/Pain Pertinent negatives: chronic pain Endocrine / Other + Diabetes mellitus (does not check FBS) - Diabetes type 2. Outpatient insulin use: none. Pt reported HgA1c: 7. Pt reported HgA1c date: ~11/2022. + Cancer history- current cancer. Cancer type: Prostate cancer s/p prostatectomy 04/2022. Pertinent negatives: thyroid disease; rheumatological disease and infectious disease Functional Capacity Functional capacity: 4-6 METs Comments: Able to take two flights of stairs at a moderate pace without a break. Denies CP. Denies SOB. Review of Systems + vision loss (Readers) Pertinent negatives: productive cough; wheezing; SOB; recent cold/flu; fever; chest pain; palpitations; orthopnea; pedal edema; PND; previous transfusion; melena/hematochezia; easy bruising; bleedingproblems; syncope; dizziness; muscle weakness; chronic pain; numbness/tingling; hard of hearing; nausea; dysphagia; diarrhea; dentures/partials; chipped/loose teeth and abdominal pain Comments: Denies any s/s of UTI today. PAT Summary and Plans Cardiac risk classification of planned procedure: low cardiac risk. Preoperative assessment status: complete. Additional comments: Alexey Gibbs is a 67 y.o. male who is being evaluated prior to undergoing a low cardiac risk surgery. Revised Cardiac Risk Index factors are (ischemic heart disease) for a total RCRI of 1 out of 6. Functional capacity is 4-6 METs. Obstructive sleep apnea (NATHALIE) screening status is STOP-Bang=5 suggesting HIGH RISK for NATHALIE. This assessment was performed via telephone. Therefore the physical exam has been deferred to the day of surgery team. The patient was provided with preoperative instructions for their medications. The patient was informed that instructions regarding stopping any therapeutic antiplatelet or anticoagulant medications will be provided by the surgeon's office. Patient instructions were provided by telephone and electronically sent via [employer]. Patient verbalized understanding of instructions. Blood bank needs for day of procedure: No type and screen needed Pending labs/tests include: POC Glucose The patient is on aspirin therapy and has a history of CAD . For the proposed procedure, the risk of increased bleeding likely outweighs the benefits of preoperative antiplatelet therapy. If the surgeon agrees with risk assessment, we would support stopping aspirin up to 7-10 days prior to the procedure and resuming therapy when feasible in the postoperative period. Per urology protocol pt instructed to stop ASA one week prior to surgery and pt verbalized understanding. Please call the CPAP chart room clinician ([phone]) with any questions. Preoperative evaluation performed by Bettina Fox NP on 03/06/23 at 10:40 AM. Patient Active Problem List Diagnosis ??? Atherosclerosis of coronary artery ??? Hypokalemia ??? Prostate cancer (HCC) ??? Bladder stone Past Medical History: Diagnosis Date ??? Cancer (CMS/HCC) (HCC) ??? Coronary artery disease ??? Hyperlipidemia ??? Hypertension ??? Motion sickness ??? Type 2 diabetes mellitus (HCC) Past Surgical History: Procedure Laterality Date ??? APPENDECTOMY 2017 ??? BLADDER STONE REMOVAL 2017 ??? CARDIAC STENT PLACEMENT 2008 ??? COLONOSCOPY 2021 ??? CORONARY ARTERY BYPASS GRAFT 2012 ??? MOHS SURGERY Left 2020 cheek ??? PROSTATECTOMY 05/01/2022 No Known Allergies Taking? Last Dose Start Date End Date Provider amLODIPine (NORVASC) 5 mg tablet 03/05/2023 03/17/22 -- Robert Mondragon MD aspirin 81 mg enteric coated tablet 03/05/2023 -- -- Robert Mondragon MD azelastine (ASTELIN) 137 mcg (0.1 %) nasal spray 03/05/2023 -- -- Robert Mondragon MD cholecalciferol (VITAMIN D-3) 2000 unit tablet 03/05/2023 -- -- Robert Mondragon MD cyanocobalamin 2,000 mcg tablet 03/05/2023 -- -- Robert Mondragon MD ferrous sulfate 325 mg (65 mg of elemental iron) tablet 03/04/2023 -- -- Robert Mondragon MD magnesium gluconate 200 mg tablet 03/05/2023 -- -- Robert Mondragon MD metFORMIN (GLUCOPHAGE) 500 mg tablet 03/05/2023 -- -- Robert Mondragon MD metoprolol tartrate (LOPRESSOR) 50 mg immediate release tablet 03/05/2023 03/17/22 -- Robert Mondragon MD pantoprazole DR (PROTONIX) 40 mg EC tablet 03/05/2023 03/17/22 -- Robert Mondragon MD potassium citrate ER (UROCIT-K) 10 mEq (1,080 mg) CR tablet 03/05/2023 10/14/19 -- Robert Mondragon MD ramipriL (ALTACE) 10 mg capsule 03/05/2023 03/17/22 -- Robert Mondragon MD rosuvastatin (CRESTOR) 20 mg tablet 03/04/2023 02/21/23 -- Robert Mondragon MD zinc gluconate 50 mg tablet 03/05/2023 -- -- Robert Mondragon MD Current Outpatient Medications: ??? amLODIPine (NORVASC) 5 mg tablet ??? aspirin 81 mg enteric coated tablet ??? azelastine (ASTELIN) 137 mcg (0.1 %) nasal spray ??? cholecalciferol (VITAMIN D-3) 2000 unit tablet ??? cyanocobalamin 2,000 mcg tablet ??? ferrous sulfate 325 mg (65 mg of elemental iron) tablet ??? magnesium gluconate 200 mg tablet ??? metFORMIN (GLUCOPHAGE) 500 mg tablet ??? metoprolol tartrate (LOPRESSOR) 50 mg immediate release tablet ??? pantoprazole DR (PROTONIX) 40 mg EC tablet ??? potassium citrate ER (UROCIT-K) 10 mEq (1,080 mg) CR tablet ??? ramipriL (ALTACE) 10 mg capsule ??? rosuvastatin (CRESTOR) 20 mg tablet ??? zinc gluconate 50 mg tablet Social History Tobacco Use Smoking Status Never Smokeless Tobacco Never Vaping Use Vaping Status Never Used Substance and Sexual Activity Alcohol Use Not on file Substance and Sexual Activity Drug Use Never Family History Problem Relation Age of Onset ??? Anesthesia problems Neg Hx There were no vitals filed for this visit. Relevant diagnostics: ECG(s): 04/27/22 SB 57. RBBB. Abnormal ECG Echocardiogram(s): N/A Stress test(s): -11/23/2021-Negative stress myocardial perfusion imaging without ischemia or infarct. Non-diagnostic septal ST-T changes; achieved 10.3 METS and 103% age predicted maximum heart rate. Stress EF is 73%, Cardiac catheterization(s): N/A PFT(s): N/A Vascular studies: N/A Other: 02/20/23: CT abdomen pelvis: IMPRESSION: Punctate nonobstructing right renal stones. No obstructing renal or ureteral calculus. 19 mm calcification along the dependent right side of the urinary bladder. Surgical absence of the prostate gland. 7 mm indeterminate low-density lesion in the left hepatic lobe, too small to characterize. Cholelithiasis. DOS Physical Exam Medical history, medications, and allergies reviewed. Attestation: This PAT evaluation Airway Exam: Mallampati: II Cervical ROM: FROM Cardiovascular Exam: Rate: regular Rhythm: regular Pulmonary Exam: LCTA, bilat Anesthesia Plan ASA 3 My patient is approved for the Anesthesia Controlled Medication protocol when under care of a PANTS BUSHELER Planned anesthesia: General Informed Consent: Anesthesia plan and risks discussed with patient. Consent and Attending signature: I and/or my designee have discussed the anesthesia plan, benefits, possible alternatives, parental presence at time of induction (if indicated), and clinically relevant risks that may include dental injury, unintentional awareness, and/or other complications. The patient and/or parent/legal guardian understand, and agree to proceed. All questions answered. documented in this encounter Plan of Treatment Not on file documented as of this encounter Procedures Procedure Name Priority Date/Time Associated Diagnosis Comments MO AN PROCEDURE PLACEHOLDER Routine 03/14/2023 7:37 AM CDT MO AN ELECTIVE ENDOTRACHEAL AIRWAY Routine 03/14/2023 7:37 AM CDT documented in this encounter Results * MO AN ELECTIVE ENDOTRACHEAL AIRWAY, MO AN PROCEDURE PLACEHOLDER (03/14/2023 7:37 AM CDT) Narrative Hakeem Rivera CRNA - 03/14/2023 7:37 AM CDT Hakeem Rivera CRNA ? 03/14/2023 ??7:38 AM Airway Patient location: OR Urgency: elective Indications for airway management: anesthesia Difficult airway: no Emergent airway documentation: Risks and benefits discussed: yes Consent obtained: yes Consent given by: patient Airway prep: Preoxygenated: yes Patient position: sniffing Mask difficulty assessment: 1 - vent by mask Spontaneous ventilation during airway: absent Sedation level during airway: GA Final airway details: Final airway type: endotracheal airway Tube type: ETT ETT size: 7.5 mm Cuffed: yes Technique used for successful ETT placement: direct laryngoscopy Insertion site: oral Blade type: Aurea Blade size: 4 Cormack-Lehane (direct): grade I - full view of glottis Cuff inflated with: air ETT to teeth: 22 cm Placement verified by: auscultation and CO2 detection Airway secured with: silk tape Number of attempts: 1 us Brant Poole MD ANESTHESIA ORDERABLES Fin al Result documented in this encounter Visit Diagnoses Not on filedocumented in this encounter Administered Medications Inactive Administered Medications - up to 3 most recent administrations Medication Order MAR Action Action Date Dose Rate Site ceFAZolin (ANCEF) 1 gram/10 mL in sterile water (premix) 2,000 mg 2,000 mg, intravenous, at 400 mL/hr, Administer over 3 Minutes, Once, On Sena 03/14/23 at 0715, For 1 dose, Pre-Op, Administer within 60 minutes of incision., Indications: Prophylaxis, SurgicalIndications:Prophylaxis, Surgical Given 03/14/2023 7:20 AM CDT 2,000 mg dexAMETHasone (DECADRON) 4 mg/mL injection intravenous, Administer over 2 Minutes, As needed, Starting on Sena 03/14/23 at 0730, Anesthesia Intra-op Given 03/14/2023 7:30 AM CDT 8 mg ePHEDrine injection intravenous, Administer over 5 Minutes, As needed, Starting on Sena 03/14/23 at 0747, Anesthesia Intra-op Given 03/14/2023 7:47 AM CDT 10 mg famotidine (PEPCID) injection 20 mg 20 mg, intravenous, Administer over 2 Minutes, Once as needed, heartburn, Medication to be administered by the anesthesia staff (Anesthesiologist or PANTS BUSHELER), Starting on Sena 03/14/23 at 0635, For 1 dose, Pre-Op, Indications: Heartburn, Heartburn Prevention, gastroesophageal reflux disease, RefluxIndications:Heartburn,Heart burn Prevention,gastroesophageal reflux disease,Reflux Given 03/14/2023 7:13 AM CDT 20 mg fentaNYL (SUBLIMAZE) preservative free injection intravenous, As needed, Starting on Sena 03/14/23 at 0714, Anesthesia Intra-op Given 03/14/2023 7:30 AM CDT 50 mcg Given 03/14/2023 7:14 AM CDT 50 mcg Lactated Ringer's (LR) infusion 30 mL/hr, intravenous, Continuous, Starting on Sena 03/14/23 at 0715, For 4 hours, Use a 500 ml bag for End Stage Renal Disease Patients. Discontinue if fluid still running once patient arrives to floor. New Bag 03/14/2023 8:02 AM CDT Rate/Dose Verify 03/14/2023 7:13 AM CDT 30 mL/h r New Bag 03/14/2023 6:39 AM CDT 30 mL/hr 30 mL/hr lidocaine PF (XYLOCAINE) 10 mg/mL (1 %) preservative free injection intravenous, As needed, Starting on Sena 03/14/23 at 0716, Anesthesia Intra-op Given 03/14/2023 7:19 AM CDT 80 mg midazolam (VERSED) 1 mg/mL injection intravenous, As needed, Starting on Sena 03/14/23 at 0714, Anesthesia Intra-op Given 03/14/2023 7:14 AM CDT 2 mg ondansetron (ZOFRAN) injection intravenous, Administer over 2 Minutes, As needed, Starting on Sena 03/14/23 at 0751, Anesthesia Intra-op Given 03/14/2023 7:51 AM CDT 4 mg propofoL (DIPRIVAN) 10 mg/mL IV intravenous, As needed, Starting on Sena 03/14/23 at 0717, Anesthesia Intra-op Given 03/14/2023 7:19 AM CDT 150 mg rocuronium (ZEMURON) injection intravenous, As needed, Starting on Sena 03/14/23 at 0718, Anesthesia Intra-op Given 03/14/2023 7:20 AM CDT 40 mg sugammadex (BRIDION) 100 mg/mL intravenous solution intravenous, As needed, Starting on Sena 03/14/23 at 0753, Anesthesia Intra-op Given 03/14/2023 7:53 AM CDT 163.2 m g documented in this encounter Care Teams Brake Lining Curer Relationship Specialty Start Date End Date John Lozoya MD [address] [address] PCP - General Family Medicine 04/03/22 documented as of this encounter
--- OUTSIDE RECORDS SUMMARY | 2024-11-07 09:27 | XMS_ITS | Encounter Summary ---
Author Organization [facility] [employer] Address [address] [place] [address] Phone Care Team Providers Care Prosthetic Makeup Designer Name Role Phone John Lozoya MD Primary Care Provider [phone] Reason for Referral * MRI/CAT/PET Scan (Routine) - Closed Specialty Diagnoses / Procedures Referred By Wade renner Referred To Contact Radiology Diagnoses Prostate cancer (HCC) Procedures PET/CT Prostate Cancer PSMA Skull to Thigh Armen Rodrigues MD Phone: tel: fax: [address] [phone] Referral ID Status Reason Start Date Expiration Date Visits Re quested Visits Authorized [id number] Closed 02/27/2023 08/26/2023 2 2 Encounter Details Date Type Department Care Team (Late st Contact Info) Description 02/25/2023 Orders Only [facility] - [facility] Urology [address] [facility] [address] [place] [address] [place] [id number] Armen Rodrigues MD [address] [place] [address] Prostate cancer (HCC) (Primary Dx) Social History [...] on file 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 Injection site: Right antecubital HISTORY: ??67-year-old man with prostate cancer diagnosed on February 2022. ??Chuck 3+4 = 7 post radical prostatectomy April [...] obtained. ??The study was interpreted on the [email or web address] workstation. ?? Scanned area: mid thighs to [...] EXAMINATION: PSMA-PET/CT DATE OF STUDY: 03/07/2023 SCANNER: [facility] RADIOPHARMACEUTICAL: 10.1 mCi F-18 DCFPyL (Piflufolastat) [...] obtained. The study was interpreted on the [email or web address] workstation. Scanned area: mid thighs to skull [...] cancer (HCC)- Primary Malignant neoplasm of prostate Prostate cancer (HCC) Malignant neoplasm of prostate documented in this encounter Care Teams Prosthetic Makeup Designer Relationship Specialty Start Date End Date John Lozoya MD [address] [address] PCP - General Family Medicine 04/03/22 documented as of this encounter
--- OUTSIDE RECORDS SUMMARY | 2024-11-07 09:27 | XMS_ITS | Encounter Summary ---
Author Organization [facility] Healthcare Address [address] [place] [address] Care Team Providers Care Facility Mechanic Name Role Phone John Lozoya MD Primary Care Provider [phone] Reason for Referral * Diagnostic Imaging (Routine) - Closed Specialty Diagnoses / Procedures Referred By Contac t Referred To Contact Radiology Diagnoses Kidney stone Procedures CT Abdomen Pelvis WO Contrast Armen Rodrigues MD Phone: tel: fax: [address] [phone] Referral ID Status Reason Start Date Expiration Date Visits Re quested Visits Authorized [id number] Closed 02/06/2023 08/05/2023 1 1 Reason for Visit * Diagnostic Imaging (Routine) - Closed Specialty Diagnoses / Procedures Referred By Contac t Referred To Contact Radiology Diagnoses Kidney stone Procedures CT Abdomen Pelvis WO Contrast Armen Rodrigues MD Phone: tel: fax: [address] [phone] Referral ID Status Reason Start Date Expiration Date Visits Re quested Visits Authorized [id number] Closed 02/06/2023 08/05/2023 1 1 Encounter Details Date Type Department Care Team (Latest Contact Info) Description 02/20/2023 4:08 PM CDT - 02/20/2023 11:59 PM CDT Hospital Encounter [facility] [address] [place] [id number] Kidney stone Discharge Disposition: Discharge to home or [...] on file 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 Gender Identity Not on file Sexual Orientation [...] mg total) by mouth every other day metFORMIN (GLUCOPHAGE) 500 mg tabletIndication s:type 2 [...] mouth 2 (two) times a day 03/17/2022 zinc gluconate 50 mg tabletIndication s:for supplement Take 1 tablet (50 mg total) by mouth every morning Klor-Con M10 10 mEq CR tabletIndication s:hypokalemia prevention Take 1 tablet/capsule (10 mEq total) by mouth every morning 02/28/2022 3 rosuvastatin (CRESTOR) 10 mg tabletIndication s:hyperlipidemia Take 1 tablet (10 mg total) by mouth nightly 03/17/2022 3 documented as of this encounter Discharge Disposition Disposition Code Departure Means Destination Discharge to home or self care documented in this encounter Plan of Treatment Not on file documented as of this encounter Procedures Procedure Name Priority Date/Time Associated Diagnosis Comments CT ABDOMEN PELVIS WO CONTRAST Schedule Routine, Read Routine (OP Routine) 02/20/2023 4:20 PM CDT Kidney stone documented in this encounter Results * CT Abdomen Pelvis [...] AM T: ??02/21/2023 2:04 AM Report ID: [id number] Reading Location: [id number] Procedure Note Jluis Viera MD - 02/21/2023 [...] Jluis Viera M.D. KT: SANDRO Report ID: [id number] Reading Location: [id number] us Armen Rodrigues MD IMG CT PROCEDURES Final Result documented in this encounter Visit Diagnoses Diagnosis Kidney stone Calculus of kidney documented in this encounter Care Teams Facility Mechanic Relationship Specialty Start Date End Date John Lozoya MD [address] [address] PCP - General Family Medicine 04/03/22 documented as of this encounter
--- OUTSIDE RECORDS SUMMARY | 2024-11-07 09:27 | XMS_ITS | Encounter Summary ---
Author Organization 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 I have scheduled for 03/14/2023 documented in this encounter Plan of Treatment Not on file documented as of this encounter Visit Diagnoses Not on filedocumented in this encounter Care Teams Front Office Manager Relationship Specialty Start Date End Date John Lozoya MD [address] [address] PCP - General Family Medicine 04/03/22 documented as of this encounter
--- OUTSIDE RECORDS SUMMARY | 2024-11-07 09:27 | XMS_ITS | Encounter Summary ---
Author Organization [facility] Healthcare Address [address] [place] [address] Care Team Providers Care Wrap Yarn Sorter Name Role Phone John Lozoya MD Primary Care Provider [phone] Reason for Visit * Auth/Cert Specialty Diagnoses / Procedures Referred By Contac t Referred To Contact Diagnoses Prostate cancer (HCC) Prostate cancer (CMS/HCC) (HCC) [C61] Procedures NE LAP,PROSTATECTOMY,RADICAL,W/NERVE SPARE,INCL ROBOTIC XI PROSTATECTOMY - LAPAROSCOPIC ROBOTIC ASSISTED XI ROBOTIC PELVIC LYMPH NODE Referral ID Status Reason Start Date Expiration Date Visits Re quested Visits Authorized [id number] 1 1 Encounter Details Date Type Department Care Team (Latest Contact Info) Description 05/01/2022 5:10 AM CDT - 05/02/2022 11:08 AM CDT Hospital Encounter [facility] [id number] [place] [address] Armen Rodrigues MD [address] [facility] [address] [place] [address] Prostate cancer (CMS/HCC) (HCC) Discharge Disposition: Discharge to home or [...] on file 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 Gender Identity Not on file Sexual Orientation Not on file documented as of this encounter Last Filed Vital Signs Vital Sign Reading Time Taken Comments Blood Pressure 113/56 05/02/2022 8:02 AM CDT Pulse 70 05/02/2022 8:25 AM CDT Temperature 36.3 ??C (97.3 ??F) 05/02/2022 8:02 AM CD T Respiratory Rate 16 05/02/2022 8:02 AM CDT Oxygen Saturation 98% 05/02/2022 8:02 AM CDT Inhaled Oxygen Concentration - - Weight 79.7 kg (175 lb 9.6 oz) 05/01/2022 5:25 A M CDT Height 182.9 cm (6') 05/01/2022 5:25 AM CDT Body Mass Index 23.82 05/01/2022 5:25 AM CDT documented in this encounter Discharge Summaries * Chilo Mcmahon MD - 05/02/2022 10:26 AM CDT Inpatient Discharge Summary BRIEF OVERVIEW Admitting Provider: Armen Rodrigues MD Discharge Provider: Armen Rodrigues MD Primary Care Physician at Discharge: John Lozoya MD [phone] Admission Date: 05/01/2022 Discharge Date: 05/02/2022 Admission Location: [facility] Problems/Diagnoses: Principal Problem: Prostate cancer (CMS/HCC) (HCC) Resolved Problems: No resolved hospital problems. DETAILS OF HOSPITAL STAY Presenting Problem/History of Present Illness: 66 y/o male undergoing a Laparoscopic Prostatectomy with lymph node removal for prostate cancer. Hospital Course: underwent a robotic-assisted laparoscopic radical prostatectomy on 05/01/[address] Rodrigues and was admitted to the urology floor after stabilization in the PACU. See operative report for full details of procedure. IV fluids for hydration, Jacob catheter in place draining clear urine. Pain controlled with multimodal agents. Patient was allowed a diet and vital signs were monitored overnight. On POD #1 pain controlled on oral agents. Incisions appeared well-approximated with no signs of infection. Patient is ambulating at baseline. Patient will be discharged with a Jacob catheter and was educated oncatheter care. The patient was deemed to be medically stable for discharge from the hospital on 05/02/22 and was in agreement with the plan to discharge home. The patient will be called by Dr. Lilia velásquez to have his Jacbo catheter removed. Strict return precautions were provided and good understanding was confirmed. Active Issues Requiring Follow-up: Jacob removal Pathology discussion Postoperative visit Test Results Pending at Discharge: Pending Labs Order Current Status Surgical pathology In process Operative Procedures Performed: Procedure(s): XI PROSTATECTOMY - LAPAROSCOPIC ROBOTIC ASSISTED XI ROBOTIC PELVIC LYMPH NODE Other Procedures: Pertinent Test Results: Discharge Details Physical Exam at Discharge: Discharge Condition: good Pulse: 70 Resp: 16 BP: 113/56 Temp: 36.3 ??C (97.3 ??F) Weight: 79.7 kg (175 lb 9.6 oz) Pertinent Exam Findings at Discharge: Physical Exam: Constitutional: no acute distress, A&O x 4. HEENT: EOMI, PERRLA, mucous membranes moist, sclera anicteric CV: RRR Pulmonary: CTAB, non-labored breathing. Gastrointestinal: soft, non-tender, non-distended, no hernia, no masses : jacob in place with Yellow urine Psychiatric: Mood and affect appropriate Neurologic: non-focal, grossly intact. Skin/Integumentary: No clubbing/edema/cyanosis to extremities. Discharge Disposition: Discharge to home or self care Code Status at Discharge: FULL Discharge Instructions: See avs Discharge Medications: Current Medications TAKE these medications acetaminophen 500 mg tablet Take 1,000 mg by mouth every 6 (six) hours as needed for pain Commonly known as: TYLENOL amLODIPine 5 mg tablet Take 5 mg by mouth every morning For: high blood pressure Commonly known as: NORVASC aspirin 81 mg enteric coated tablet Take 81 mg by mouth every morning For: prevention of thrombosis azelastine 137 mcg (0.1 %) nasal spray Administer 1 spray into each nostril 2 (two) times a day Use in each nostril as directed Commonly known as: ASTELIN cholecalciferol 2000 unit tablet Take 2,000 Units by mouth every morning For: prevention of vitamin D deficiency Commonly known as: VITAMIN D-3 cyanocobalamin 2,000 mcg tablet Take 2,000 mcg by mouth every morning ferrous sulfate 325 mg (65 mg of elemental iron) tablet Take 65 mg of elemental iron by mouth every other day For: anemia from inadequate iron HYDROcodone-acetaminophen 5-325 mg per tablet Take 1 tablet by mouth every 4 (four) hours as needed for pain Commonly known as: NORCO Klor-Con M10 10 mEq CR tablet Take 10 mEq by mouth every morning Generic drug: potassium chloride ER metFORMIN 500 mg tablet Take 1,000 mg by mouth 2 (two) times a day with meals For: type 2 diabetes mellitus Commonly known as: GLUCOPHAGE metoprolol tartrate 50 mg immediate release tablet Take 50 mg by mouth 2 (two) times a day For: high blood pressure Commonly known as: LOPRESSOR oxybutynin 5 mg tablet Take 1 tablet (5 mg total) by mouth 3 (three) times a day as needed (bladder spasms) Commonly known as: DITROPAN oxyCODONE 5 mg immediate release tablet Take 1 tablet (5 mg total) by mouth every 4 (four) hours as needed for pain For: pain Commonly known as: ROXICODONE pantoprazole DR 40 mg EC tablet Take 40 mg by mouth every morning For: Treatment of Non-Bleeding Gastric Disorder Commonly known as: PROTONIX polyethylene glycol 17 gram packet Take 1 packet (17 g total) by mouth daily for 15 days For: constipation Commonly known as: MIRALAX ramipriL 10 mg capsule Take 10 mg by mouth 2 (two) times a day For: high blood pressure Commonly known as: ALTACE rosuvastatin 10 mg tablet Take 10 mg by mouth nightly For: excessive fat in the blood Commonly known as: CRESTOR sulfamethoxazole-trimethoprim 800-160 mg per tablet Take 1 tablet by mouth once for 1 dose Please take this antibiotic 30 minutes prior to catheter removal. Commonly known as: BACTRIM DS zinc gluconate 50 mg tablet Take 50 mg by mouth every morning Outpatient Follow-Up: Cosigned by Armen Rodrigues MD at 05/02/2022 10:35 AM CDT documented in this encounter Discharge Instructions * Discharge Instructions* Huy Nolan MD - 05/01/2022 8:12 AM CDT DISCHARGE INSTRUCTIONS FOR PROSTATECTOMY Call your doctor if: * You have a fever higher than 101.5 F (38.6 C). * You have nausea, vomiting or diarrhea. * Your pain medicine is not helping your pain. * You feel dizzy, very tired or like you may faint. (It is normal to feel somewhat tired for 1-2 weeks after surgery.) * You have large blood clots in your urine. * You have pus or bright red drainage from your incision. * If your catheter or tube comes out accidentally. * If there is no urine in your tubing for 2-3 hours. * The urine should remain clear enough that you can see newsprint through the tubing. If you can NOT, please call. * If the urine in the tubing has white pus, blood clots, or resembles tomato juice. Call your surgeon???s office during regular business hours. If you need to speak to someone after hours or on weekends or holidays, call . New Medications: - Oxycodone - a narcotic pain medication for severe pain that is otherwise not controlled by Tylenol or Ibuprofen - Miralax - a stool softener to be taken especially if taking a narcotic pain medication - Bactrim - an antibiotic to be taken 30 minutes before catheter removal - Oxybutynin - a medication to be taken as needed to prevent bladder spasms while your catheter is in place (please stop this medication 24 hours before you remove your catheter) Diet: You may resume your usual home diet. Activity: * Do NOT lift anything over 10 pounds for 4 weeks. * Do NOT drive or operate machinery if you are taking narcotic pain medicine. * Do NOT take baths or swim in pools for 4 weeks. * You may take showers. Gently wash over wounds with soap and water, and dab or pat dry with a towel. * Take short frequent walks every day. Climbing stairs is OK. * Do NOT sit in hard backed chairs, ride bicycles, or engage in other activities that may put pressure on the perineal region. * Be VERY careful not to accidentally dislodge or pull your Jacob catheter out during activities. * It is normal to have some swelling in your penis and scrotum. This should improve over the next few days. To minimize or reduce the swelling, supportive briefs or a jock strap should be worn. When sitting or lying, scrotal elevation with a pillow or rolled up towel will help. Care Instructions: * Place over the counter triple antibiotic ointment on the tip of your penis 3 times a day while you have your catheter in place. * Measure and write down how much drainage comes from your catheter. Bring this information to your next doctor???s appointment. Your catheter can be attached to a leg bag as needed. * You may remove any bandages upon arriving home from the hospital. You may have paper strips left over your incisions. These strips will fall off on their own in about 10-14 days. If they do not fall off after 14 days, you may gently remove them. * Do NOT place anything in your rectum. This includes medications such as suppositories, applicators of any sort, enemas, sexual paraphernalia, or anal intercourse. * You may see some blood in or around the catheter during periods of increased activity or when having a bowel movement. This is expected to some degree. Do not be alarmed unless the bleeding continues for more than 30 minutes or if it gets worse. Then refer to above directions as to when to call your doctor. * Please be sure to take your stool softeners as prescribed to keep your bowel movements as effortless as possible until fully healed. If you develop diarrhea, you may hold the softeners until bowel movements firm up. Special Instructions: Smoking increases wound healing time. Please refrain, or at least, reduce smoking for 4 weeks. If you would like a prescription for a nicotine patch, please contact your care provider who will be happy to help. ADDITIONAL INSTRUCTIONS: Pain Control You should expect to have some pain after your procedure. This is a normal part of the recovery process. The pain is more tolerable for some patients and less tolerable for others. When you are in pain: - Start by applying ice packs or heating pads and using over the counter medications such as acetaminophen (Tylenol) or ibuprofen (Advil or Motrin) unless otherwise specified by your doctor. - If your pain is still uncontrolled, you may take a stronger, prescription medication that contains opioids. Take only as much of this medication as you need. - As you recover, your pain will decrease and you will need less pain medication. You should only take pain medication if you are in pain. - If you are no longer taking any of your opioid medication and have leftover pills, dispose of them by placing them in a plastic bag, adding dish soap, and throwing them in the trash. FOLLOW UP: JACOB CATHETER REMOVAL - You will have to remove your catheter in 7-[address] Rodrigues will call you to explain how you should proceed with this. Dr. Rodrigues will also call the results of your pathology toy. If you do not hear back within 10 business days, or if you have any questions, please call . Active issues requiring follow up: Jacob catheter removal Test results pending at discharge: pathology documented in this encounter Medications at Time [...] (50 mg total) by mouth every morning sulfamethoxazole -trimethoprim (BACTRIM DS) 800-160 mg per tablet Take 1 tablet by mouth once for 1 dose Please take this antibiotic 30 minutes prior to catheter removal. 1 tablet 05/02/2022 2 acetaminophen (TYLENOL) 500 mg tablet Take 1,000 mg by mouth every 6 (six) hours as needed for pain 2 HYDROcodone-acet aminophen (NORCO) 5-325 mg per tablet Take 1 tablet by mouth every 4 (four) hours as needed for pain 02/19/2022 2 Klor-Con M10 10 mEq CR tabletIndication s:hypokalemia prevention Take 1 tablet/capsule (10 mEq total) by mouth every morning 02/28/2022 3 oxybutynin (DITROPAN) 5 mg tablet Take 1 tablet (5 mg total) by mouth 3 (three) times a day as needed (bladder spasms) 10 tablet 05/01/2022 2 oxyCODONE (ROXICODONE) 5 mg immediate release tabletIndication s:Pain Take 1 tablet (5 mg total) by mouth every 4 (four) hours as needed for pain 10 tablet 05/01/2022 2 polyethylene glycol (MIRALAX) 17 gram packetIndication s:constipation Take 1 packet (17 g total) by mouth daily for 15 days 15 packet 05/02/2022 2 rosuvastatin (CRESTOR) 10 mg tabletIndication s:hyperlipidemia Take 1 tablet (10 mg total) by mouth nightly 03/17/2022 3 documented as of this encounter Ordered Prescriptions Prescription Sig Dispense Quantity Refills Last Filled Start Date End Date sulfamethoxazole-t rimethoprim (BACTRIM DS) 800-160 mg per tablet Take 1 tablet by mouth once for 1 dose Please take this antibiotic 30 minutes prior to catheter removal. 1 tablet 05/02/2022 2 polyethylene glycol (MIRALAX) 17 gram packetIndications: constipation Take 1 packet (17 g total) by mouth daily for 15 days 15 packet 05/02/2022 2 oxybutynin (DITROPAN) 5 mg tablet Take 1 tablet (5 mg total) by mouth 3 (three) times a day as needed (bladder spasms) 10 tablet 05/01/2022 2 oxyCODONE (ROXICODONE) 5 mg immediate release tabletIndications: Pain Take 1 tablet (5 mg total) by mouth every 4 (four) hours as needed for pain 10 tablet 05/01/2022 2 documented in this encounter Discharge Disposition Disposition Code Departure Means Destination Discharge to home or self care documented in this encounter H&P Notes * Armen Rodrigues MD - 05/01/2022 7:04 AM CDT I have reviewed the H&P, examined the patient, and endorse the findings as written. Plan of Care : Based on the above findings, I consider Alexey Gibbs to be an acceptable risk for : Procedure(s): XI PROSTATECTOMY - LAPAROSCOPIC ROBOTIC ASSISTED XI ROBOTIC PELVIC LYMPH NODE Source Note - Robin Skinner MD - 04/27/2022 3:10 PM CDT Images from the original note were not included. [facility] for Preoperative Assessment and Planning Preoperative Evaluation Record Evaluation type/location: [facility] Planned procedure site: [facility] OR Date: 04/27/22 Anesthesia Evaluation Alexey Gibbs is a 66 y.o. male Procedure(s): XI PROSTATECTOMY - LAPAROSCOPIC ROBOTIC ASSISTED XI ROBOTIC PELVIC LYMPH NODE Pre-Op Diagnosis Codes: * Prostate cancer (CMS/HCC) (HCC) [C61] HISTORY HPI 66 y/o male undergoing a Laparoscopic Prostatectomy with lymph node removal for prostate cancer. Past Medical History Information obtained from: patient and chart. Neurological Pertinent negatives: seizures; neuromuscular disease; CVA/stroke; TIA; ICA stenosis; psychiatric history and carotid artery stent Cardiovascular + Hypertension Hypertension year diagnosed: 1999. + Hyperlipidemia (statin) + CAD + CABG (x 4) - Prior CABG date: 2012. + Drug-eluting stent(s) (LAD) - Prior stent(s) date: 2008. + Other arrhythmia - RBBB. Pertinent negatives: GA ; valvular heart disease; atrial fibrillation; pacemaker/ICD; DVT/PE; negative for CHF; bare metal stent(s) and unknown stent(s) type Comments: Follows with Dr. Ehsan Scott, cardiology at [facility] Respiratory Pertinent negatives: COPD; asthma; sleep apnea (NATHALIE); no O2 use outside the hospital and non-smoker Hepatic / Heme + History of anemia (Iron supplement) - iron deficiency Pertinent negatives: liver disease Gastrointestinal + GERD - on daily therapy. Asymptomatic. Renal / + Nephrolithiasis (Required intervention) Pertinent negatives: renal disease and dialysis Musculoskeletal/Pain Pertinent negatives: chronic pain Endocrine / Other + Diabetes mellitus (>10 years) - Diabetes type 2. Outpatient insulin use: none. + Cancer history- current cancer. Cancer type: Prostate. Pertinent negatives: thyroid disease; rheumatological disease and [...] Plans Cardiac risk classification of planned procedure: intermediate cardiac risk. Preoperative assessment status: lab tests ordered and outside records required. Initial preoperative evaluation discussed with: Kate Davis MD Additional comments: Alexey Gibbs is a 66 y.o. male who is being evaluated prior to undergoing an intermediate cardiac risk surgery. Revised Cardiac Risk Index factors are (ischemic heart disease) for a total RCRI of 1 out of 6. Functional capacity is 4-6 METs. Obstructive sleep apnea (NATHALIE) screening status is STOP-Bang=5 suggesting HIGH RISK for NATHALIE. Orders initiated. Blood bank needs for day of procedure: Type and Screen only Pending labs/tests include: CBC BMP T&S Urine culture >>The patient is on aspirin therapy and has a history of CAD . For the proposed procedure, the risk of increased bleeding likely outweighs the benefits of preoperative antiplatelet therapy. If the surgeon agrees with risk assessment, we would support stopping aspirin up to 7-10 days prior to the procedure and resuming therapy when feasible in the postoperative period. Instructed to do at CPAP appointment per CPAP urology protocol.. He will not have a full 7 days off Aspirin. [employer] staff message sent to surgeon's office. Please call the CPAP attending ([phone]) with any questions. Patient's COVID19 status is: Unexposed. The patient currently has no concerning symptoms of COVID19. . Patient's COVID-19 vaccination status is Up to date with 3 mRNA vaccines. Documentation of vaccination status is available in the Epic Immunization tab. . Plan for pre-procedure COVID19 testing: Patient is asymptomatic and up to date with their COVID-19 vaccine. COVID-19 testing not indicated. >>Reports he recently had a nuclear stress test completed ~ with Dr. Ehsan Meléndez, Cardiology at [facility]. Will retrieve results and most recent OVN for chart completion<< Preoperative evaluation performed by Reta Mclaughlin NP on 04/27/22 at 3:16 PM. . Follow up note 1 Labs reviewed and are significant for: Creatinine of 1.5 with Creatinine Clearance of 52.5 ml/min. Serum creatinine was 1.45 on 06/14/2016. Urine culture shows contamination. [employer] message sent to surgeon's office with urine culture update. Surgeon's office reviews laboratory results independently, including final results of surgeon ordered labs. CPAP process complete. Follow-up completed by: Martina Berg NP on 04/30/22 at 8:19 AM Follow up note 2 Pt's cardiology OVN from 11/23/2021 reviewed. Pt is sp bypass and stenting, symptomatically doing well. S/P stress test (results entered into Diagnostics Section of CPAP form) CPAP assessment complete. Follow-up completed by: Martina Berg NP on 04/30/22 at 9:20 AM Patient Active Problem List Diagnosis ??? Atherosclerosis of coronary artery ??? Hypokalemia ??? Prostate cancer (CMS/HCC) (HCC) Past Medical History: Diagnosis Date ??? Cancer (CMS/HCC) (HCC) ??? Coronary artery disease ??? Hyperlipidemia ??? Hypertension ??? Motion sickness ??? Type 2 diabetes mellitus (HCC) Past Surgical History: Procedure Laterality Date ??? CORONARY ARTERY BYPASS GRAFT No Known Allergies Med List Status: Nurse Complete Set By: Nasir Garces, RN at 04/27/2022 2:46 PM Taking? Last Dose Start Date End Date Provider acetaminophen (TYLENOL) 500 mg tablet More than a month -- -- Robert Mondragon MD amLODIPine (NORVASC) 5 mg tablet 04/27/2022 03/17/22 -- Robert Mondragon MD aspirin 81 mg enteric coated tablet 04/27/2022 -- -- Robert Mondragon MD azelastine (ASTELIN) 137 mcg (0.1 %) nasal spray 04/27/2022 -- -- Robert Mondragon MD cholecalciferol (VITAMIN D-3) 2000 unit tablet 04/27/2022 -- -- Robert Mondragon MD cyanocobalamin 2,000 mcg tablet 04/27/2022 -- -- Robert Mondragon MD ferrous sulfate 325 mg (65 mg of elemental iron) tablet 04/26/2022 -- -- Robert Mondragon MD HYDROcodone-acetaminophen (NORCO) 5-325 mg per tablet Not Taking 02/19/22 -- Robert Mondragon MD Klor-Con M10 10 mEq CR tablet 04/27/2022 02/28/22 -- Robert Mondragon MD metFORMIN (GLUCOPHAGE) 500 mg tablet 04/27/2022 -- -- Robert Mondragon MD metoprolol tartrate (LOPRESSOR) 50 mg immediate release tablet 04/27/2022 03/17/22 -- Robert Mondragon MD pantoprazole DR (PROTONIX) 40 mg EC tablet 04/27/2022 03/17/22 -- Robert Mondragon MD ramipriL (ALTACE) 10 mg capsule 04/27/2022 03/17/22 -- Robert Mondragon MD rosuvastatin (CRESTOR) 10 mg tablet 04/26/2022 03/17/22 -- Robert Mondragon MD zinc gluconate 50 mg tablet 04/27/2022 -- -- Robert Mondragon MD Current Outpatient Medications: ??? amLODIPine (NORVASC) 5 mg tablet ??? aspirin 81 mg enteric coated tablet ??? azelastine (ASTELIN) 137 mcg (0.1 %) nasal spray ??? cholecalciferol (VITAMIN D-3) 2000 unit tablet ??? cyanocobalamin 2,000 mcg tablet ??? ferrous sulfate 325 mg (65 mg of elemental iron) tablet ??? Klor-Con M10 10 mEq CR tablet ??? metFORMIN (GLUCOPHAGE) 500 mg tablet ??? metoprolol tartrate (LOPRESSOR) 50 mg immediate release tablet ??? pantoprazole DR (PROTONIX) 40 mg EC tablet ??? ramipriL (ALTACE) 10 mg capsule ??? rosuvastatin (CRESTOR) 10 mg tablet ??? zinc gluconate 50 mg tablet ??? acetaminophen (TYLENOL) 500 mg tablet ??? HYDROcodone-acetaminophen (NORCO) 5-325 mg per tablet Social History Tobacco Use Smoking Status Never Smoker Smokeless Tobacco Not on file Substance and Sexual Activity Alcohol Use Not on file Substance and Sexual Activity Drug Use Never Family History Problem Relation Age of Onset ??? Anesthesia problems Neg Hx PAT Physical Exam Airway Exam: Mallampati: I Cervical ROM: FROM TM distance: 3 Upper lip bite test class: 1 Cardiovascular Exam: Rate: regular Rhythm: regular Negative for Murmur Negative for peripheral edema Pulmonary Exam: LCTA, bilat EENT Exam: trachea midline Dental Exam: Appears intact Skin Exam: Skin is warm and dry. Turgor is normal. Abdominal exam: Abdomen is soft. Bowel sounds are present. Current state: Patient's current state is cooperative and interactive. Vitals: 06/10/22 1445 04/27/22 1450 BP: 118/56 122/66 Pulse: 64 Resp: 16 SpO2: 96% Relevant diagnostics: ECG(s): 04/27/22 SB 57. RBBB. Abnormal ECG Echocardiogram(s): N/A Stress test(s): -11/23/2021-Negative stress myocardial perfusion imaging without ischemia or infarct. Non-diagnostic septal ST-T changes; achieved 10.3 METS and 103% age predicted maximum heart rate. Stress EF is 73%, Cardiac catheterization(s): N/A PFT(s): N/A Vascular studies: N/A Other: N/A STOP-Bang Total Score: 5 Dequan index score: 100 DOS Physical Exam Medical history, medications, and allergies reviewed. Attestation: I endorse the findings of the anesthesia pre-evaluation assessment dated: 04/27/2022. Airway Exam: Mallampati: II Cardiovascular Exam: Rate: regular Rhythm: regular Pulmonary Exam: LCTA Dental Exam: Appears intact Current state: Patient's current state is cooperative and interactive. Anesthesia Plan ASA 2 My patient is approved for the Anesthesia Controlled Medication protocol when under care of a ONLINE ADVERTISING MANAGER Planned anesthesia: General Team communication plan: oral ET tube Induction: Induction: intravenous. Postoperative Plan: Postoperative administration opioids intended. No postoperative mechanical ventilation intended. Patient's planned disposition post procedure is 23 hour admit. Planned trial extubation. Informed Consent: Anesthesia plan and risks discussed with patient and spouse. Consent and Attending signature: I and/or my designee have discussed the anesthesia plan, benefits, possible alternatives, parental presence at time of induction (if indicated), and clinically relevant risks that may include dental injury, unintentional awareness, and/or other complications. The patient and/or parent/legal guardian understand, and agree to proceed. All questions answered. documented in this encounter Nursing Notes * Xin Ansari RN - 05/02/2022 11:05 AM CDT Discharge paperwork instructed to patient and spouse. Voiced understanding. Jacob cath/leg bag training instructed per primary RN. Pt/spouse voided understanding. * Yenifer Childs RN - 05/01/2022 1:22 PM CDT Patient ambulated to bathroom and vomited. Patient was given compazine minutes before vomiting. documented in this encounter Miscellaneous Notes * Plan of Care - Kate Ferrer RN - 05/02/2022 8:57 AM CDT Goals: Clinical Goals for the Shift: pain control, up to chair, ambulate in [place], tolerate diet, ISx10 Summary: Problem: Health Behavior: Goal: Understanding of discharge needs will improve Outcome: Progressing Problem: Activity: Goal: Ability to return to normal activity level will improve Outcome: Progressing Problem: Bowel/Gastric: Goal: Gastrointestinal status for postoperative course will improve Outcome: Progressing Problem: Lack of Knowledge: Goal: Understanding of discharge needs will improve Outcome: Progressing Problem: Fluid Volume: Goal: Ability to maintain a balanced intake and output will improve Outcome: Progressing Problem: Health Behavior: Goal: Identification of resources available to assist in meeting health care needs will improve Outcome: Progressing Problem: Nutritional: Goal: Ability to attain and maintain optimal nutritional status will improve Outcome: Progressing Problem: Physical Regulation: Goal: Postoperative complications will be avoided or minimized Outcome: Progressing Problem: Respiratory: Goal: Ability to maintain adequate ventilation will improve Outcome: Progressing Goal: Respiratory status will improve Outcome: Progressing Problem: Safety: Goal: Ability to remain free from injury will improve Outcome: Progressing Problem: Sensory: Goal: Pain level will decrease Outcome: Progressing Problem: Skin Integrity: Goal: Evidence of wound healing without infection will improve Outcome: Progressing Problem: Urinary Elimination: Goal: Will remain free from infection Outcome: Progressing Goal: Ability to achieve and maintain adequate urine output will improve Outcome: Progressing * Plan of Care - Yaneth Sexton RN - 05/02/2022 1:53 AM CDT Problem: Health Behavior: Goal: Understanding of discharge needs will improve Outcome: Progressing Problem: Activity: Goal: Ability to return to normal activity level will improve Outcome: Progressing Problem: Bowel/Gastric: Goal: Gastrointestinal status for postoperative course will improve Outcome: Progressing Problem: Lack of Knowledge: Goal: Understanding of discharge needs will improve Outcome: Progressing Problem: Fluid Volume: Goal: Ability to maintain a balanced intake and output will improve Outcome: Progressing Problem: Health Behavior: Goal: Identification of resources available to assist in meeting health care needs will improve Outcome: Progressing Problem: Nutritional: Goal: Ability to attain and maintain optimal nutritional status will improve Outcome: Progressing Problem: Physical Regulation: Goal: Postoperative complications will be avoided or minimized Outcome: Progressing Problem: Respiratory: Goal: Ability to maintain adequate ventilation will improve Outcome: Progressing Goal: Respiratory status will improve Outcome: Progressing Problem: Safety: Goal: Ability to remain free from injury will improve Outcome: Progressing Problem: Sensory: Goal: Pain level will decrease Outcome: Progressing Problem: Skin Integrity: Goal: Evidence of wound healing without infection will improve Outcome: Progressing Problem: Urinary Elimination: Goal: Will remain free from infection Outcome: Progressing Goal: Ability to achieve and maintain adequate urine output will improve Outcome: Progressing Goals: Clinical Goals for the Shift: Pain <4, ambulate, monitor urine output >30ml/hr, IS 10x/hr Summary * Plan of Care - Yenifer Childs RN - 05/01/2022 1:39 PM CDT Goals: Clinical Goals for the Shift: Pain <4, ambulate, monitor urine output >30ml/hr, IS 10x/hr Summary: Problem: Health Behavior: Goal: Understanding of discharge needs will improve Outcome: Progressing Problem: Activity: Goal: Ability to return to normal activity level will improve Outcome: Progressing Problem: Bowel/Gastric: Goal: Gastrointestinal status for postoperative course will improve Outcome: Progressing Problem: Lack of Knowledge: Goal: Understanding of discharge needs will improve Outcome: Progressing Problem: Fluid Volume: Goal: Ability to maintain a balanced intake and output will improve Outcome: Progressing Problem: Health Behavior: Goal: Identification of resources available to assist in meeting health care needs will improve Outcome: Progressing Problem: Nutritional: Goal: Ability to attain and maintain optimal nutritional status will improve Outcome: Progressing Problem: Physical Regulation: Goal: Postoperative complications will be avoided or minimized Outcome: Progressing Problem: Respiratory: Goal: Ability to maintain adequate ventilation will improve Outcome: Progressing Goal: Respiratory status will improve Outcome: Progressing Problem: Safety: Goal: Ability to remain free from injury will improve Outcome: Progressing Problem: Sensory: Goal: Pain level will decrease Outcome: Progressing Problem: Skin Integrity: Goal: Evidence of wound healing without infection will improve Outcome: Progressing Problem: Urinary Elimination: Goal: Will remain free from infection Outcome: Progressing Goal: Ability to achieve and maintain adequate urine output will improve Outcome: Progressing * Perioperative Nursing Note - Amisha Garces RN - 05/01/2022 11:14 AM CDT Blood glucose 215 after treating with 3units insulin due to steroid mediations given in OR. Ok to move pt to floor with prn insulin orders per Dr. Cedeño. * Op Note - Armen Rodrigues MD - 05/01/2022 7:38 AM CDT OPERATIVE REPORT FACILITY ID: [facility] SUR[facility] Armen Rodrigues M.D. PACS SPECIALIST Yenifer Clark MD ANESTHESIA: General. PREOPERATIVE DIAGNOSIS Prostate cancer. POSTOPERATIVE DIAGNOSIS Same. NAME OF OPERATION 1. Robot-assisted laparoscopic radical prostatectomy. 2. Robot-assisted laparoscopic bilateral pelvic lymph node dissection. INDICATION FOR PROCEDURE Patient is a 66-year-old gentleman with a history of prostate cancer. Following discussion of risks, benefits, alternatives to procedure, patient agreed to proceed. OPERATIVE FINDINGS: Bilateral nerve sparing performed. Endopelvic mcclain sparing technique. DESCRIPTION OF PROCEDURE Informed consent was obtained. Patient was brought to the operating room. IV antibiotics were given. Bilateral sequential compression devices were placed. Following smooth induction of general anesthesia, patient was prepped and draped in the usual standard sterile fashion. A time-out was then performed to ensure proper patient, proper procedure. Veress needle insufflation was performed and a periumbilical camera trocar was placed. Robotic trocars were placed across the midline and vector control assistant port was placed in the left lower quadrant. The robot was then docked. The posterior reflection of the peritoneum was opened and the seminal vesicles and vas were dissected free of their surrounding attachments. The posterior plane of prostate was dissected free from the nerve-bundles bilaterally. Once this area was dissected free, attention was then turned to the space of Retzius. The space of Retzius was completely dissected and bilateral endopelvic fascia were cleaned off. The bladder neck was incised and the Jacob catheter was grasped and brought to the midline. The posterior bladder neck was dissected down to the level of our prior seminal vesicle dissection. The seminal vesicle and vas were brought out through this location. At this time we controlled the prostatic pedicles with bipolar electrocautery and retrograde-antegrade cold cut nerve-sparing procedure was performed bilaterally. We performed minimal opening of the endopelvic fascia, such that the DVC was controlled at the level of the bladder neck. Sweeping under Denonvilliers' fascia the posterior plane was finally bluntly dissected free off of the posterior prostate. The urethra was then dissected with cold cut scissors and the Jacob was withdrawn and the rectal urethralis muscle was cut with cold cut scissors as well. Bilateral pelvic lymph node dissection was then performed using the external iliac vein, Brien's ligament, and the obturator nerve as the boundaries of dissection. All specimens were placed into an entrapment sac and set aside. Vesicourethral anastomosis was then performed with 3-0 V-Loc suture x2in running fashion. The final catheter was placed and inflated to 10 mL. The bladder was irrigated to clear. The robot was then undocked. The periumbilical trocar site was extended and the specimens were extracted at this location. Using a 0 Vicryl the fascia was closed in running fashion. All skinincisions were then closed with 4-0 Monocryl suture and Steri-Strip dressing. The patient was awoken and taken to postoperative anesthesia recovery. SPECIMENS REMOVED 1. Bilateral pelvic lymph nodes. 2. Prostate. ESTIMATED BLOOD LOSS 50 mL. INTRAOPERATIVE FLUIDS 1000 mL of crystalloid. SPONGE, INSTRUMENT, AND NEEDLE COUNT Correct x2. CONDITION ON DISCHARGE Stable to PACU. ATTESTATION OF PRESENCE I was present and directly participated in the entire procedure. documented in this encounter Plan of Treatment Not on file documented as of this encounter Procedures Procedure Name Priority Date/Time Associated Diagnosis Comments POCT GLUCOSE DEVICE Routine 05/02/2022 8 :08 AM CDT POCT GLUCOSE DEVICE Routine 05/01/2022 9 :33 PM CDT POCT GLUCOSE DEVICE Routine 05/01/2022 6 :23 PM CDT POCT GLUCOSE DEVICE Routine 05/01/2022 3 :47 PM CDT POCT GLUCOSE DEVICE Routine 05/01/2022 1 2:12 PM CDT POCT GLUCOSE DEVICE Routine 05/01/2022 1 0:54 AM CDT POCT GLUCOSE DEVICE Routine 05/01/2022 1 0:15 AM CDT SURGICAL PATHOLOGY Routine 05/01/2022 10 :15 AM CDT Prostate cancer (HCC) POCT GLUCOSE DEVICE Routine 05/01/2022 8 :30 AM CDT XI ROBOTIC PELVIC LYMPH NODE 05/01/2022 7:17 AM CDT Prostate cancer (CMS/HCC) (HCC) XI PROSTATECTOMY - LAPAROSCOPIC ROBOTIC ASSISTED 05/01/2022 7:17 AM CDT Prostate cancer (CMS/HCC) (HCC) POCT GLUCOSE DEVICE Routine 05/01/2022 6 :20 AM CDT B ABO / RH CONFIRMATION TESTING STAT 05/01/2022 6:16 AM CDT documented in this encounter Results * POCT glucose (05/02/2022 8:08 AM CDT) Glucose, POC 127 70 - 199 mg/dL [facility] Comment: Interpretive Data Glucose is assumed to be non-fasting. Fasting Glucose reference ranges are: 0 - 150 years: ??70 mg/dL - 99 mg/dL Current interpretive data was last revised on 2014. POC Performer [id number] [facility] POC Device Number [id number] [facility] Blood 05/02/2022 8:08 AM CDT 05/02/2022 8:08 AM CDT Armen Rodrigues MD LAB POCT ORDERABLES - DEVICE Fi nal Result Performing Organization Address [facility] de Phone Number [facility] [address] [facility] [place] [address] * (ABNORMAL) POCT glucose (05/01/2022 9:33 PM CDT) Glucose, POC 218(H) 70 - 199 mg/dL [facility] Comment: Interpretive Data Glucose is assumed to be non-fasting. Fasting Glucose reference ranges are: 0 - 150 years: ??70 mg/dL - 99 mg/dL Current interpretive data was last revised on 2014. POC Performer [id number] [facility] POC Device Number [id number] [facility] Blood 05/01/2022 9:33 PM CDT 05/01/2022 9:33 PM CDT Armen Rodrigues MD LAB POCT ORDERABLES - DEVICE Fi nal Result Performing Organization Address [facility] de Phone Number [facility] [address] [facility] [place] [address] * (ABNORMAL) POCT glucose (05/01/2022 6:23 PM CDT) Glucose, POC 212(H) 70 - 199 mg/dL [facility] Comment: Interpretive Data Glucose is assumed to be non-fasting. Fasting Glucose reference ranges are: 0 - 150 years: ??70 mg/dL - 99 mg/dL Current interpretive data was last revised on 2014. POC Performer [id number] [facility] Device Number [id number] [facility] Blood 05/01/2022 6:23 PM CDT 05/01/2022 6:23 PM CDT Armen Rodrigues MD LAB POCT ORDERABLES - DEVICE Fi nal Result Performing Organization Address [facility] de Phone Number [facility] [address] [facility] [place] [address] * POCT glucose (05/01/2022 3:47 PM CDT) Glucose, POC 160 70 - 199 mg/dL [facility] Comment: Interpretive Data Glucose is assumed to be non-fasting. Fasting Glucose reference ranges are: 0 - 150 years: ??70 mg/dL - 99 mg/dL Current interpretive data was last revised on 2014. POC Performer [id number] [facility] POC Device Number [id number] [facility] Blood 05/01/2022 3:47 PM CDT 05/01/2022 3:47 PM CDT Armen Rodrigues MD LAB POCT ORDERABLES - DEVICE Fi nal Result Performing Organization Address [facility] de Phone Number [facility] [address] [facility] [place], [place] [address] * POCT glucose (05/01/2022 12:12 PM CDT) Glucose, POC 197 70 - 199 mg/dL [facility] Comment: Interpretive Data Glucose is assumed to be non-fasting. Fasting Glucose reference ranges are: 0 - 150 years: ??70 mg/dL - 99 mg/dL Current interpretive data was last revised on 2014. POC Performer [id number] [facility] POC Device Number [id number] [facility] Blood 05/01/2022 12:1 2 PM CDT 05/01/2022 12:12 PM CDT Armen Rodrigues MD LAB POCT ORDERABLES - DEVICE Fi nal Result Performing Organization Address [facility] Phone Number [facility] [address] [facility] [place] [address] * (ABNORMAL) POCT glucose (05/01/2022 10:54 AM CDT) Glucose, POC 215(H) 70 - 199 mg/dL [facility] Comment: Interpretive Data Glucose is assumed to be non-fasting. Fasting Glucose reference ranges are: 0 - 150 years: ??70 mg/dL - 99 mg/dL Current interpretive data was last revised on 2014. POC Performer [id number] [facility] POC Device Number [id number] [facility] Blood 05/01/2022 10:5 4 AM CDT 05/01/2022 10:54 AM CDT Armen Rodrigues MD LAB POCT ORDERABLES - DEVICE Fi nal Result Performing Organization Address [facility] Phone Number [facility] [address] [facility] [place] [address] * (ABNORMAL) POCT glucose (05/01/2022 10:15 AM CDT) Glucose, POC 213(H) 70 - 199 mg/dL [facility] Comment: Interpretive Data Glucose is assumed to be non-fasting. Fasting Glucose reference ranges are: 0 - 150 years: ??70 mg/dL - 99 mg/dL Current interpretive data was last revised on 2014. POC Performer [id number] [facility] POC Device Number [id number] [facility] Blood 05/01/2022 10:1 5 AM CDT 05/01/2022 10:15 AM CDT us Armen Rodrigues MD LAB POCT ORDERABLES - DEVICE Fi nal Result [facility] [address] [facility] [place] [address] * Surgical pathology (05/01/2022 10:15 AM CDT) Tissue (Prostate, Prostatectomy) 05/01/2022 10:15 AM CDT Tissue (Lymph node, dissection/region al resection) 05/01/2022 10:15 AM CDT Narrative PATHOLOGY [facility] - 05/08/2022 9:34 AM CDT EPIC results best viewed via link to PDF [facility] [place] [address] Note to Patients: This report may contain [...] FINAL WITH ADDENDUM Patient Name: ?? ALEXEY GIBBSEdd Gender: ??M : ??1955 (Age: 66) Address: ??[address] [place] [address] ??[id number] Hospital #: ??[id number] Taken:05/01/2022 Received:05/01/2022 Reported: 05/08/2022 Patient Type: [facility] EP OP IN Client ?[facility] Service: Urology Location: Physician(s): ??Melissa Alatorre Lupardus, M.D. Diagnosis: A. ??Prostate, radical prostatectomy ? - Prostatic adenocarcinoma, Dunkerton score 3 + 4 = 7 (20% pattern 4), grade group 2 ? - The carcinoma involves 20-30% of the total glandular tissue ? - No lymphovascular invasion identified ? - Perineural invasion is identified ? - No extraprostatic extension identified ? - Bilateral seminal vesicles with no evidence of malignancy ? - The carcinoma extends to the surgical resection margin at the right distal apex, right posterior prostate, and the right anterior mid in the area of capsular incision (the linear length of carcinoma at the margin is 5 mm total, the Dunkerton score of carcinoma at the margin is 3+4=7) ? - Pathologic stage: pT2N0 ? - See synoptic B. ??Lymph nodes, pelvic, dissection ? - No evidence of malignancy in one lymph node (0/1) [facility]/05/08/2022 09:34 By this signature, I attest that the above diagnosis is based upon my personal examination of the slides(and/or other material indicated in the diagnosis). Kimi Hubbard M.D. Report Electronically Reviewed and Signed Out By ??Kimi Hubbard M.D. 05/08/2022 09:34:14 Microscopic Description and Comment: Additional levels were obtained on block A11 for margin assessment. Microscopic examination substantiates the above cited diagnosis. Ronni Younger MD History: The patient is a 66-year-old man with prostate cancer. Operative procedure: Prostatectomy laparoscopic robotic assisted and robotic pelvic lymph node. Specimen(s) Received: A: Prostate B: Pelvic lymph nodes Gross Description: Received in two formalin jars labeled with the patient's identifiers. A. ??Labeled prostate Integrity: Intact Weight: 33.9 g Dimensions: ? Left to right: 4.4 cm ? [place] to base: 3.7 cm ? Anterior to posterior: 2.5 cm Inking: ? Right = Black ? Left = Blue ?? Seminal Vesicles/Vasa Deferentia: Attached ? Right Seminal Vesicle: 3.4 x 1.0 x 0.5 cm ? Left Seminal Vesicle: 3.4 x 1.4 x 0.6 cm ? Right Vas Deferens: 4.0 x 0.6 x 0.5 cm ? Left Vas Deferens: 2.7 x 0.7 x 0.4 cm Number of slices: 9 ?? Cut Surface of Prostate: Stanton-pink nodular and focally hemorrhagic ?? Lesion: N/a ?? Tissue taken for research: N/a ?? Summary of sections: ? A1 Right Seminal Vesicle and Vas Deferens ? A2 Left Seminal Vesicle and Vas Deferens ? A3 Right bladder neck radial margin, radial ? A4 Left bladder neck radial margin, radial ? A5 Right distal apical radial margin, radial ? A6 Left distal apical radial margin, radial ? A7-A15 Entire right posterior prostate submitted from base to apex ? A16 Right anterior base, slice 1 ? A17 Right anterior mid, slice 5 ? A18 Right anterior apex, slice 9 ? A19-A27 Entire left posterior prostate submitted from base to apex ? A28 Left anterior base, slice 1 ? A29 Left anterior mid, slice 5 ? A30 Left anterior apex, slice 9 Jar: 1 B. ??Labeled pelvic lymph nodes are 2 pieces of yellow lobular adipose tissue measuring 3.7 x 3.0 x 0.6 cm from which a single stanton-pink lymph node is dissected measuring 3.0 x 1.4 x 0.4 cm. ? B1-B2 Single lymph node, serially sectioned ?? [facility]/05/02/2022 11:41 PA(s): Roxanna Syed, SHARI, CT (ASCP) ? CANCER CASE SUMMARY FOR CARCINOMA OF THE PROSTATE GLAND ? Procedure: ?Radical prostatectomy ? Prostate size: ?Weight: 33.9g ?Size: 4.4 x 3.7 x 2.5 cm ? Histologic Type: ?Ductal adenocarcinoma ? Histologic Grade: ?Grade group 2 (Chuck Score 3+4=7) ?Percentage of Pattern 4 in Chuck Score 7 (3+4, 4+3) Cancer: 20 ?Minor high-grade (tertiary) pattern present ? Percentage of Chuck Patterns 4 and 5: ?Percentage of pattern 5: 1 ? Cribriform Glands: ?Present ? Tumor Quantitation: ?21 - 30% ? Extraprostatic Extension: ?Not identified ? Urinary Bladder Neck Invasion: ?Not identified ? Seminal Vesicle Invasion: ?Not identified ? Margins: ?Involved by invasive carcinoma ?Non-limited (>=3 mm) ?Linear length of positive margin(s): 5 ?Multifocal ? Margin(s) Involved by Invasive Carcinoma: ?Right apical ?Right anterior ?Right posterior ? Chuck Pattern at Positive Margin(s): ?Pattern 3 ?Pattern 4 ? Treatment Effect: ?No known presurgical therapy ? Lymphvascular Invasion: ?Not identified ? Perineural Invasion: ?Present ? Regional Lymph Nodes: ?All regional lymph nodes negative for tumor ?Number of Lymph Nodes with Tumor ?Exact number: 0 ?Exact number: 1 ? Pathologic Stage Classification (pTNM, AJCC 8th Edition): ? Primary tumor (pT): ?pT2: Organ confined ? Regional Lymph Nodes (pN): ?pN0: No positive regional nodes ? Distant metastasis: ?Not applicable - pM cannot be determined ? Additional pathologic findings: ?Nodular prostatic hyperplasia ? The pathologic stage assigned here should be regarded as provisional and may change after integration ? of clinical data not provided with this specimen. ? CAP VERSION: Prostate 4.2.0.0 ? By this signature, I attest that the above diagnosis is based upon my personal examination of the slides(and/or other material). Addenda/Procedures Addendum Ordered:03/05/2023Status:Signed OutAddendum Complete:03/05/2023y:Chace Vinson M.D., PH.D.Addendum Signed Out:03/05/2023 Addendum Diagnosis A digital scan of the original reference lab report will begin on page two of this addendum. This testing was ordered at the request of Dr. Armen Rodrigues. Block A14 was selected, and sent for the testing referenced below. ?? Note: Refer to scanned physician request. A request for slide review was received. The case report, slides and/or blocks for the cited accession were retrieved from archives. I personally reviewed the original pathology report, examined the H&E slides, and the blocks and/or slides referenced were chosen.Chace Vinson M.D., PH.D.Report Electronically Reviewed and Signed Out By ??Chace Vinson M.D., PH.D. ??03/05/2023 20:48:04 ?? Microscopic slide review and interpretation for this case was performed at [facility], Department of Surgical Pathology, [address] [facility] [place], [place] [id number], ??[facility], [place] ??[address] ?? CLIA # [id number] The performance characteristics of some immunohistochemical stains, fluorescence in-situ hybridization tests and immunophenotyping by flow cytometry cited in this report (if any) were determined by the Surgical Pathology and Flow Cytometry Departments at [facility] as part of an ongoing water quality tester program and in compliance with federally mandated [...] Surgical Pathology and Flow Cytometry Departments of [facility]. ??It has not been cleared or approved by the U. S. Food and Drug Administration. IMAGES AND SCANNED DOCUMENTS, IF INCLUDED, ONLY VIEWABLE IN PDF VERSION OF REPORT us Armen Rodrigues MD LAB PATHOLOGY ORDERABLES Final Result [facility] [phone] * POCT glucose (05/01/2022 8:30 AM CDT) Glucose, POC 177 70 - 199 mg/dL [facility] Comment: Interpretive Data Glucose is assumed to be non-fasting. Fasting Glucose reference ranges are: 0 - 150 years: ??70 mg/dL - 99 mg/dL Current interpretive data was last revised on 2014. POC Performer [id number] [facility] POC Device Number [id number] [facility] Blood 05/01/2022 8:30 AM CDT 05/01/2022 8:30 AM CDT Armen Rodrigues MD LAB POCT ORDERABLES - DEVICE Fi nal Result Performing Organization Address [facility] Phone Number [facility] [address] [facility] [place] [address] * POCT glucose (05/01/2022 6:20 AM CDT) Glucose, POC 122 70 - 199 mg/dL [facility] Comment: Interpretive Data Glucose is assumed to be non-fasting. Fasting Glucose reference ranges are: 0 - 150 years: ??70 mg/dL - 99 mg/dL Current interpretive data was last revised on 2014. POC Performer [id number] [facility] POC Device Number [id number] [facility] Blood 05/01/2022 6:20 AM CDT 05/01/2022 6:20 AM CDT Armen Rodrigues MD LAB POCT ORDERABLES - DEVICE Fi nal Result Performing Organization Address [facility] de Phone Number [facility] [id number] [address] [facility] [place] [address] * ABO / Rh Confirmation Testing (05/01/2022 6:16 AM CDT) ABO/Rh Confirmation A Negative [facility] Blood 05/01/2022 6:16 AM CDT 05/01/2022 6:31 AM CDT Armen Rodrigues MD LAB BLOOD ORDERABLES Final Resu lt Performing Organization Address [facility] Phone Number [facility] [phone] [address] [facility] [address] documented in this encounter Visit Diagnoses Diagnosis Prostate cancer (HCC)- Primary Malignant neoplasm of prostate documented in this encounter Admitting Diagnoses Diagnosis Prostate cancer (HCC) Malignant neoplasm of prostate documented in this encounter Administered Medications Inactive Administered Medications - up to 3 most recent administrations Medication Order MAR Action Action Date Dose Rate Site acetaminophen (TYLENOL) tablet 1,000 mg 1,000 mg, oral, Every 6 hours scheduled, First dose on Sat05/01/22 at 1245, Indications: PainIndications:Pain Given 05/02/2022 5:28 AM CDT 1,000 mg Given 05/02/2022 12:46 AM CDT 1,000 mg Given 05/01/2022 6:42 PM CDT 1,000 mg amLODIPine (NORVASC) tablet 5 mg 5 mg, oral, Every morning, First dose on Sat05/02/22 at 0900, Indications: hypertensionIndications:hypert ension Given 05/02/2022 8:29 AM CDT 5 mg aspirin enteric coated tablet 81 mg 81 mg, oral, Every morning, First dose on Sat05/02/22 at 0900, Do not crush, chew, cut, dissolve, open or otherwise manipulate tablet/capsule., Indications: prevention of thrombosisIndications:preventi on of thrombosis Given 05/02/2022 8:29 AM CDT 81 mg calcium carbonate (TUMS) chewable tablet 1,000 mg 1,000 mg (400 mg of elemental calcium), oral, 3 times daily PRN, indigestion, heartburn, Starting on Sat05/01/22 at 1205 Carrier Fluids for Secondary Infusion - 0.9% Sodium Chloride 30 mL, intravenous, As needed, For priming tubing and/or flushing, Starting on Sat05/01/22 at 1205, 0-250 ml/hr to flush line after IV infusions when no maintenance IV ordered. Infuse 30mL at the same rate as the secondary infusion. Run as primary IV, not intended for KVO. dextrose (D10W) 10% bolus 250 mL 250 mL, intravenous, at 1,000 mL/hr, Administer over 15 Minutes, Every 15 min PRN, blood glucose less than 70 mg/dL and UNABLE to swallow/take PO glucose/juice., Starting on Sat05/01/22 at 1121, After treatment for hypoglycemia, recheck BG followed by treatment every 15 minutes until the BG is greater than 100 mg/dL. Then check BG 1 hour post treatment. If BG is less than 100 mg/dL, repeat Q15 minute BG checks and treatment. Call MD for each episode of hypoglycemia., Indications: hypoglycemic disorderIndications:hypoglycem ic disorder dextrose (GLUTOSE) 40 % gel 15 g 15 g, oral, Every 15 min PRN, low blood sugar, blood glucose less than 70 mg/dL, Starting on Sat05/01/22 at 1121, If patient is alert and able to eat/drink, give 15 gm glucose or one juice (4 fluid ounces) NOT ORANGE JUICE. After treatment for hypoglycemia, recheck BG followed by treatment every 15 minutes until the BG is greater than 100 mg/dL. Then check BG 1 hour post-treatment. If BG is less than 100 mg/dL, repeat Q15 minute BG checks and treatment. Call MD for each episode of hypoglycemia. LAYER OUT PLATE GLASS STATES GLUTOSE-15 CONTAINS GLUCOSE 40% W/W (50% W/V), Indications: hypoglycemic disorderIndications:hypoglycem ic disorder enoxaparin (LOVENOX) syringe 40 mg 40 mg, subcutaneous, Daily (for enoxaparin), First dose on Sat05/01/22 at 2100, Indications: Deep Vein Thrombosis PreventionIndications:Deep Vein Thrombosis Prevention Given 05/01/2022 9:36 PM CDT 40 mg Left Forearm glucagon injection 1 mg 1 mg, intramuscular, Every 30 min PRN, low blood sugar, blood glucose less than 70 mg/dL AND no IV access AND unable to take PO glucose/juice., Starting on Sat05/01/22 at 1121, After Glucagon is administered, position patient on side if possible to avoid aspiration. Obtain IV access. Follow glucagon treatment with glucose treatment or IV dextrose. After treatment for hypoglycemia, recheck BG followed by treatment every 15 minutes until the BG is greater than 100 mg/dL. Then check BG 1 hour post treatment. If BG is less than 100 mg/dL, repeat Q15 minute BG checks and treatment. Call MD for each episode of hypoglycemia. Reconstitute 1 mg vial with 1 mL SWFI. Use immediately following reconstitution. insulin lispro (HumaLOG, ADMELOG) 100 unit/mL injection 0-4 Units 0-4 Units, subcutaneous, Nightly, First dose on Sat05/01/22 at 2100, Blood glucose mg/dL: 199 or less: No insulin 200-249: add 1 unit 250-299: add 2 units 300-349: add 3 units and notify physician for adjustment of insulin orders. 350-399: add 4 units and notify physician for adjustment of insulin orders. Over 400: Notify physician for adjustment of insulin orders. Do NOT hold for NPO Status, Indications: Diabetes MellitusIndications:Diabetes Mellitus Given 05/01/2022 9:37 PM CDT 1 Units Left Lower Abdomen insulin lispro (HumaLOG, ADMELOG) 100 unit/mL injection 0-5 Units 0-5 Units, subcutaneous, 3 times daily with meals, First dose on Sat05/01/22 at 1200, Blood glucose mg/dL: 149 or less: No insulin 150-199: add 1 unit 200-249: add 2 units 250-299: add 3 units 300-349: add 4 units and notify physician for adjustment of insulin orders. 350-399: add 5 units and notify physician for adjustment of insulin orders. Over 400: Notify physician for adjustment of insulin orders. Do NOT hold for NPO Status, Indications: Diabetes MellitusIndications:Diabetes Mellitus Given 05/01/2022 6:41 PM CDT 2 Units Left Lower Abdomen Given 05/01/2022 12:29 PM CDT 1 Units L eft Upper Arm insulin lispro (HumaLOG, ADMELOG) 100 unit/mL injection 3 Units 3 Units, subcutaneous, Once, On Sat05/01/22 at 1100, For 1 dose, Phase I Given 05/01/2022 10:26 AM CDT 3 Units Right Lower Abdomen ketorolac (TORADOL) 30 mg/mL (1 mL) injection 15 mg 15 mg, intravenous, Every 6 hours PRN, 1st line for pain, Starting on Sat05/01/22 at 1122, For 5 days, For Adult IV push, administer over 15 seconds Given 05/02/2022 3:57 AM CDT 15 mg Given 05/01/2022 9:34 PM CDT 15 mg Lactated Ringer's (LR) infusion 30 mL/hr, intravenous, Continuous, Starting on Sat05/01/22 at 0645, For 4 hours, Pre-Op, Use a 500 ml bag for End Stage Renal Disease Patients. Discontinue if fluid still running once patient arrives to floor. Rate/Dose Verify 05/01/2022 7:11 AM CDT 30 mL/hr New Bag 05/01/2022 6:28 AM CDT 30 mL/hr 30 mL/hr Lactated Ringer's (LR) infusion 100 mL/hr, intravenous, Continuous, Starting on Sat05/01/22 at 1245 New Bag 05/02/2022 3:52 AM CDT 100 mL/hr 100 mL/hr New Bag 05/01/2022 4:44 PM CDT 100 mL/hr 100 mL/hr metoprolol tartrate (LOPRESSOR) immediate release tablet 50 mg 50 mg, oral, 2 times daily, First dose on Sat05/01/22 at 2100, Indications: hypertensionIndications:hypertension Given 05/02/2022 8:29 AM CDT 50 mg Given 05/01/2022 9:37 PM CDT 50 mg ondansetron (ZOFRAN) injection 4 mg 4 mg, intravenous, Administer over 2 Minutes, Every 6 hours PRN, nausea, vomiting, if not tolerating PO, Starting on Sat05/01/22 at 1205, Indications: nausea and vomitingIndications:nausea and vomiting Given 05/01/2022 4:24 PM CDT 4 mg ondansetron ODT (ZOFRAN-ODT) disintegrating tablet 4 mg 4 mg, oral, Every 6 hours PRN, nausea, vomiting, Starting on Sat05/01/22 at 1205, Indications: nausea and vomitingIndications:nausea and vomiting oxybutynin (DITROPAN) tablet 5 mg 5 mg, oral, Every 6 hours PRN, bladder spasms, Starting on Sat05/01/22 at 1205, Indications: Bladder HyperactivityIndications:Bladder Hyperactivity oxyCODONE (ROXICODONE) tablet 5 mg 5 mg, oral, Every 4 hours PRN, breakthrough pain, Starting on Sat05/01/22 at 1205, Indications: PainIndications:Pain pantoprazole DR (PROTONIX) extended release tablet 40 mg 40 mg, oral, Every morning, First dose on Sat05/02/22 at 0900, Do not crush, chew, cut, dissolve, open or otherwise manipulate tablet/capsule., Indications: Treatment of Non-Bleeding Gastric DisorderIndications:Treatment of Non-Bleeding Gastric Disorder Given 05/02/2022 8:29 AM CDT 40 mg prochlorperazine (COMPAZINE) injection 5 mg 5 mg, intravenous, Administer over 2 Minutes, Every 6 hours PRN, nausea, vomiting, Starting on Sat05/01/22 at 1234 Given 05/01/2022 1:16 PM CDT 5 mg ramelteon (ROZEREM) tablet 8 mg 8 mg, oral, Nightly PRN, sleep, Starting on Sat05/01/22 at 1205, Indications: Sleep-Onset InsomniaIndications:Sleep-Onset Insomnia rosuvastatin (CRESTOR) tablet 10 mg 10 mg, oral, Nightly, First dose on Sat05/01/22 at 2100, Indications: hyperlipidemiaIndications:hyperlipidemia Given 05/01/2022 9:37 PM CDT 10 mg sodium chloride 0.9% flush 0.5-20 mL 0.5-20 mL, intra-catheter, Every 8 hours scheduled, First dose on Sat05/01/22 at 1400, Flush volume based on line type and size. sodium chloride 0.9% flush 0.5-20 mL 0.5-20 mL, intra-catheter, As needed, line care, Starting on Sat05/01/22 at 1205, Flush volume based on line type and size. Flush before and after each use. documented in this encounter Active and Recently Administered Medications Times are shown in CDT. Scheduled Medication Order 04/30/2022 05/01/2022 05/02/2022 acetaminophen (TYLENOL) tablet 1,000 mg 1,000 mg, oral, Every 6 hours scheduled, First dose on Sat05/01/22 at 1245, Indications: Pain 1230 (Given - Provider: Yenifer Childs RN)1842 (Given - Provider: Yenifer Childs RN) 0046 (Given - Provider: Yaneth Sexton RN)0528 (Given - Provider: Yaneth Sexton RN) amLODIPine (NORVASC) tablet 5 mg 5 mg, oral, Every morning, First dose on Sat05/02/22 at 0900, Indications: hypertension 08 (Given - Provid er: Kate Ferrer RN) aspirin enteric coated tablet 81 mg 81 mg, oral, Every morning, First dose on Sat05/02/22 at 0900, Do not crush, chew, cut, dissolve, open or otherwise manipulate tablet/capsule., Indications: prevention of thrombosis 828 (Given - Provid er: Kate Ferrer RN) ceFAZolin (ANCEF) 1 gram/10 mL in sterile water (premix) 2,000 mg (COMPLETED) 2,000 mg, intravenous, at 400 mL/hr, Administer over 3 Minutes, Once, On Sat05/01/22 at 0645, For 1 dose, Pre-Op, Administer within 60 minutes of incision., Indications: Prophylaxis, Surgical 728 (Given - Provider: Robin Skinner MD) enoxaparin (LOVENOX) syringe 40 mg 40 mg, subcutaneous, Daily (for enoxaparin), First dose on Sat05/01/22 at 2100, Indications: Deep Vein Thrombosis Prevention 2135 (Given - Provider: Yaneth Sexton RN) insulin lispro (HumaLOG, ADMELOG) 100 unit/mL injection 0-4 Units 0-4 Units, subcutaneous, Nightly, First dose on Sat05/01/22 at 2100, Blood glucose mg/dL: 199 or less: No insulin 200-249: add 1 unit 250-299: add 2 units 300-349: add 3 units and notify physician for adjustment of insulin orders. 350-399: add 4 units and notify physician for adjustment of insulin orders. Over 400: Notify physician for adjustment of insulin orders. Do NOT hold for NPO Status, Indications: Diabetes Mellitus 2136 (Given - Provider: Yaneth Sexton RN) insulin lispro (HumaLOG, ADMELOG) 100 unit/mL injection 0-5 Units 0-5 Units, subcutaneous, 3 times daily with meals, First dose on Sat05/01/22 at 1200, Blood glucose mg/dL: 149 or less: No insulin 150-199: add 1 unit 200-249: add 2 units 250-299: add 3 units 300-349: add 4 units and notify physician for adjustment of insulin orders. 350-399: add 5 units and notify physician for adjustment of insulin orders. Over 400: Notify physician for adjustment of insulin orders. Do NOT hold for NPO Status, Indications: Diabetes Mellitus 1229 (Given - Provider: Yenifer Childs, RN)1841 (Given - Provider: Yenifer Childs RN) 0828 (Not Given - Provider: Kate Ferrer RN - Reason: Order parameters not met) insulin lispro (HumaLOG, ADMELOG) 100 unit/mL injection 3 Units (COMPLETED) 3 Units, subcutaneous, Once, On Sat05/01/22 at 1100, For 1 dose, Phase I 1026 (Given - Provider: Amisha Garces RN) metFORMIN (GLUCOPHAGE) tablet 1,000 mg 1,000 mg, oral, 2 times daily with meals (bkfst, dinner), First dose on Sat05/01/22 at 0845, Take with food, Indications: type 2 diabetes mellitus, On hold since Sat05/01/2022 at 0809 until manually unheld 0809 (Held by Provider - Provider: Chilo Mcmahon MD - Reason: Hold for Procedure)0845 (Dose Auto Held - Provider: Chilo Mcmahon MD)1800 (Dose Auto Held - Provider: Chilo Mcmahon MD) 0800 (Dose Auto Held - Provider: Chilo Mcmahon MD)1538 (Unheld by Provider - Provider: Automatic Discharge Provider) metoprolol tartrate (LOPRESSOR) immediate release tablet 50 mg 50 mg, oral, 2 times daily, First dose on Sat05/01/22 at 2100, Indications: hypertension 2136 (Given - Provider: Yaneth Sexton RN) 0829 (Given - Provider: Kate Ferrer RN) pantoprazole DR (PROTONIX) extended release tablet 40 mg 40 mg, oral, Every morning, First dose on Sat05/02/22 at 0900, Do not crush, chew, cut, dissolve, open or otherwise manipulate tablet/capsule., Indications: Treatment of Non-Bleeding Gastric Disorder 0829 (Given - Provid er: Kate Frerer RN) rosuvastatin (CRESTOR) tablet 10 mg 10 mg, oral, Nightly, First dose on 6/14/22 at 2100, Indications: hyperlipidemia 2137 (Given - Provider: Yaneth Sexton RN) sodium chloride 0.9% flush 0.5-20 mL 0.5-20 mL, intra-catheter, Every 8 hours scheduled, First dose on Sat05/01/22 at 1400, Flush volume based on line type and size. 1400 (Due)2335 (Not Given - Provider: Yaneth Sexton RN - Reason: IV Infusing) 0431 (Not Given - Provider: Yaneth Sexton RN - Reason: IV Infusing) Continuous Medication Order 04/30/2022 05/01/2022 05/02/2022 Lactated Ringer's (LR) infusion () 30 mL/hr, intravenous, Continuous, Starting on Sat05/01/22 at 0645, For 4 hours, Pre-Op, Use a 500 ml bag for End Stage Renal Disease Patients. Discontinue if fluid still running once patient arrives to floor. 0628 (New Bag - Provider: Brigid Montgomery RN)0711 (Rate/Dose Verify - Provider: Robin Skinner MD) Lactated Ringer's (LR) infusion 100 mL/hr, intravenous, Continuous, Starting on Sat05/01/22 at 1245 1205 (Continue to Inpatient Floor - Provider: Yenifer Childs RN)1245 (Due)1256 (Continue to Inpatient Floor - Provider: Yenifer Childs RN)1644 (New Bag - Provider: Yenifer Childs RN) 0352 (New Bag - Provider: Yaneth Sexton RN)1538 (Due: Stopped) PRN Medication Order 04/30/2022 05/01/2022 05/02/2022 bupivacaine HCl (MARCAINE) 0.5 % (5 mg/mL) injection (CANCELED) As needed, Starting on Sat05/01/22 at 0941, Intra-Op 0941 (Given - Provider: Armen Rodrigues MD) calcium carbonate (TUMS) chewable tablet 1,000 mg 1,000 mg (400 mg of elemental calcium), oral, 3 times daily PRN, indigestion, heartburn, Starting on Sat05/01/22 at 1205 Carrier Fluids for Secondary Infusion - 0.9% Sodium Chloride 30 mL, intravenous, As needed, For priming tubing and/or flushing, Starting on Sat05/01/22 at 1205, 0-250 ml/hr to flush line after IV infusions when no maintenance IV ordered. Infuse 30mL at the same rate as the secondary infusion. Run as primary IV, not intended for KVO. dextrose (D10W) 10% bolus 250 mL(Linked Group 1) 250 mL, intravenous, at 1,000 mL/hr, Administer over 15 Minutes, Every 15 min PRN, blood glucose less than 70 mg/dL and UNABLE to swallow/take PO glucose/juice., Starting on Sat05/01/22 at 1121, After treatment for hypoglycemia, recheck BG followed by treatment every 15 minutes until the BG is greater than 100 mg/dL. Then check BG 1 hour post treatment. If BG is less than 100 mg/dL, repeat Q15 minute BG checks and treatment. Call MD for each episode of hypoglycemia., Indications: hypoglycemic disorder dextrose (GLUTOSE) 40 % gel 15 g(Linked Group 1) 15 g, oral, Every 15 min PRN, low blood sugar, blood glucose less than 70 mg/dL, Starting on Sat05/01/22 at 1121, If patient is alert and able to eat/drink, give 15 gm glucose or one juice (4 fluid ounces) NOT ORANGE JUICE. After treatment for hypoglycemia, recheck BG followed by treatment every 15 minutes until the BG is greater than 100 mg/dL. Then check BG 1 hour post-treatment. If BG is less than 100 mg/dL, repeat Q15 minute BG checks and treatment. Call MD for each episode of hypoglycemia. LAYER OUT PLATE GLASS STATES GLUTOSE-15 CONTAINS GLUCOSE 40% W/W (50% W/V), Indications: hypoglycemic disorder famotidine (PEPCID) injection 20 mg (COMPLETED) 20 mg, intravenous, Administer over 2 Minutes, Once as needed, heartburn, Medication to be administered by the anesthesia staff (Anesthesiologist or ONLINE ADVERTISING MANAGER), Starting on Sat05/01/22 at 0601, For 1 dose, Pre-Op, Indications: gastroesophageal reflux disease, Heartburn, Heartburn Prevention, Reflux 0711 (Given - Provider: Robin kSinner MD) glucagon injection 1 mg 1 mg, intramuscular, Every 30 min PRN, low blood sugar, blood glucose less than 70 mg/dL AND no IV access AND unable to take PO glucose/juice., Starting on Sat05/01/22 at 1121, After Glucagon is administered, position patient on side if possible to avoid aspiration. Obtain IV access. Follow glucagon treatment with glucose treatment or IV dextrose. After treatment for hypoglycemia, recheck BG followed by treatment every 15 minutes until the BG is greater than 100 mg/dL. Then check BG 1 hour post treatment. If BG is less than 100 mg/dL, repeat Q15 minute BG checks and treatment. Call MD for each episode of hypoglycemia. Reconstitute 1 mg vial with 1 mL SWFI. Use immediately following reconstitution. ketorolac (TORADOL) 30 mg/mL (1 mL) injection 15 mg 15 mg, intravenous, Every 6 hours PRN, 1st line for pain, Starting on Sat05/01/22 at 1122, For 5 days, For Adult IV push, administer over 15 seconds 2134 (Given - Provider: Yaneth Sexton RN) 0357 (Given - Provider: Yaneth Sexton RN) ondansetron (ZOFRAN) injection 4 mg(Linked Group 2) 4 mg, intravenous, Administer over 2 Minutes, Every 6 hours PRN, nausea, vomiting, if not tolerating PO, Starting on Sat05/01/22 at 1205, Indications: nausea and vomiting 1624 (Given - Provider: Yenifer Childs, EVELYN) ondansetron ODT (ZOFRAN-ODT) disintegrating tablet 4 mg(Linked Group 2) 4 mg, oral, Every 6 hours PRN, nausea, vomiting, Starting on Sat05/01/22 at 1205, Indications: nausea and vomiting 1624 (See Alternative - Provider: Yenifer Childs, EVELYN) oxybutynin (DITROPAN) tablet 5 mg 5 mg, oral, Every 6 hours PRN, bladder spasms, Starting on Sat05/01/22 at 1205, Indications: Bladder Hyperactivity oxyCODONE (ROXICODONE) tablet 5 mg 5 mg, oral, Every 4 hours PRN, breakthrough pain, Starting on Sat05/01/22 at 1205, Indications: Pain prochlorperazine (COMPAZINE) injection 5 mg 5 mg, intravenous, Administer over 2 Minutes, Every 6 hours PRN, nausea, vomiting, Starting on Sat05/01/22 at 1234 1316 (Given - Provider: Yenifer Childs RN) ramelteon (ROZEREM) tablet 8 mg 8 mg, oral, Nightly PRN, sleep, Starting on Sat05/01/22 at 1205, Indications: Sleep-Onset Insomnia sodium chloride 0.9% flush 0.5-20 mL 0.5-20 mL, intra-catheter, As needed, line care, Starting on Sat05/01/22 at 1205, Flush volume based on line type and size. Flush before and after each use. sodium chloride 0.9% irrigation (CANCELED) As needed, Starting on Sat05/01/22 at 0941, Intra-Op 0941 (Given - Provider: Armen Rodrigues MD) Linked Groups Order Group 1: dextrose (GLUTOSE) 40 % gel 15 gJump to med 15 g, oral, Every 15 min PRN, low blood sugar, blood glucose less than 70 mg/dL, Starting on Sat05/01/22 at 1121, If patient is alert and able to eat/drink, give 15 gm glucose or one juice (4 fluid ounces) NOT ORANGE JUICE. After treatment for hypoglycemia, recheck BG followed by treatment every 15 minutes until the BG is greater than 100 mg/dL. Then check BG 1 hour post-treatment. If BG is less than 100 mg/dL, repeat Q15 minute BG checks and treatment. Call MD for each episode of hypoglycemia. LAYER OUT PLATE GLASS STATES GLUTOSE-15 CONTAINS GLUCOSE 40% W/W (50% W/V), Indications: hypoglycemic disorder Or dextrose (D10W) 10% bolus 250 mLJump to med 250 mL, intravenous, at 1,000 mL/hr, Administer over 15 Minutes, Every 15 min PRN, blood glucose less than 70 mg/dL and UNABLE to swallow/take PO glucose/juice., Starting on Sat05/01/22 at 1121, After treatment for hypoglycemia, recheck BG followed by treatment every 15 minutes until the BG is greater than 100 mg/dL. Then check BG 1 hour post treatment. If BG is less than 100 mg/dL, repeat Q15 minute BG checks and treatment. Call MD for each episode of hypoglycemia., Indications: hypoglycemic disorder Group 2: ondansetron ODT (ZOFRAN-ODT) disintegrating tablet 4 mgJump to med 4 mg, oral, Every 6 hours PRN, nausea, vomiting, Starting on Sat05/01/22 at 1205, Indications: nausea and vomiting Or ondansetron (ZOFRAN) injection 4 mgJump to med 4 mg, intravenous, Administer over 2 Minutes, Every 6 hours PRN, nausea, vomiting, if not tolerating PO, Starting on Sat05/01/22 at 1205, Indications: nausea and vomiting documented in this encounter Orders Medications Ordered That Zach ht Not Have Been Administered Count Last Ordered Date First Ordered Date acetaminophen (TYLENOL) tablet 500 mg 1 bupivacaine HCl (MARCAINE) 0 .5 % (5 mg/mL) injection 1 05/01/2022 calcium carbonate (TUMS) maribell wable tablet 1,000 mg 1 05/01/2022 Carrier Fluids for Secondary Infusion - 0.9% Sodium Chloride 05/01/2022 ceFAZolin (ANCEF) 1 gram/10 mL in sterile water (premix) 2,000 mg 05/01/2022 dextrose (D10W) 10% bolus 250 mL 05/01/20 dextrose (GLUTOSE) 40 % gel 15 g 05/01/20 diphenhydrAMINE (BENADRYL) i njection 12.5 mg 05/01/2022 famotidine (PEPCID) injection 20 mg 05/01 fentaNYL (SUBLIMAZE) preserv ative free injection 25 mcg 05/01/2022 glucagon injection 1 mg 05/01/2022 hydrALAZINE (APRESOLINE) injection 5 mg 1 0 05/01/2022 HYDROcodone-acetaminophen (N ORCO) 5-325 mg per tablet 1 tablet 1 05/01/2022 HYDROmorphone (DILAUDID) injection 0.2 mg 1 05/01/2022 labetaloL (NORMODYNE,TRANDAT E) injection 5 mg 1 05/01/2022 Lactated Ringer's (LR) infusion 1 meperidine (DEMEROL) preserv ative free injection 12.5 mg 1 05/01/2022 metFORMIN (GLUCOPHAGE) tablet 1,000 mg 1 naloxone (NARCAN) 0.4 mg/mL injection 0.04-0.4 mg 1 05/01/2022 ondansetron (ZOFRAN) injection 4 mg 1 05/01 ondansetron ODT (ZOFRAN-ODT) disintegrating tablet 4 mg 1 05/01/2022 oxybutynin (DITROPAN) tablet 5 mg 1 oxyCODONE (ROXICODONE) tablet 5 mg 1 2021 prochlorperazine (COMPAZINE) injection 5 mg 1 05/01/2022 ramelteon (ROZEREM) tablet 8 mg 1 scopolamine patch 72 hour 1 patch 1 022 sodium chloride 0.9% flush 0.5-20 mL 4 04/18 sodium chloride 0.9% irrigation 1 2 Lab Orders Without Results Count Last Ordered D ate First Ordered Date POCT GLUCOSE DEVICE 1 05/01/2022 Admission Count Last Ordered Date First Orde red Date INITIATE OUTPATIENT IN A BED 1 05/01/2022 Transfer Count Last Ordered Date First Orde red Date TRANSFER PATIENT TO NEW UNIT 1 05/01/2022 Discharge Count Last Ordered Date First Orde red Date DISCHARGE PATIENT 1 05/02/2022 documented in this encounter Care Teams Wrap Yarn Sorter Relationship Specialty Start Date End Date John Lozoya MD [address] [address] PCP - General Family Medicine 04/03/22 documented as of this encounter
--- OUTSIDE RECORDS SUMMARY | 2024-11-07 09:27 | XMS_ITS | Encounter Summary ---
Author Organization [facility] [facility] Address [address] [place] [address] Phone Care Team Providers Care Manager Bar Name Role Phone John Lozoya MD Primary Care Provider [phone] Encounter Details Date Type Department Care Team (Late st Contact Info) Description 05/08/2022 Orders Only [facility] ([facility]) - [facility] Urology [address] [facility] 11th [place] [address] [place] [address] Armen Rodrigues MD [address] [facility] [address] [place] [address] Social History Tobacco Use Types Packs/Day Years [...] on file 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
--- OUTSIDE RECORDS SUMMARY | 2024-11-07 09:28 | XMS_ITS | Encounter Summary ---
Author Organization [facility] Healthcare Address [address] [place] [address] Care Team Providers Care Photolith Operator Name Role Phone Unavailable Primary Care Provider Unavailabl e Encounter Details Date Type Department Care Team (Late st Contact Info) Description 10/16/2016 6:00 PM FLOTATION OPERATOR - 10/16/2016 11:59 PM FLOTATION OPERATOR Hospital Encounter [facility] Ann Collins MD [address] [address] Solitary pulmonary nodule; Pulmonary fibrosis (CMS/HCC); Atherosclerotic heart disease of [place] coronary artery without angina pectoris; Atherosclerosis of aorta (CMS/HCC) Social History Tobacco Use Types Packs/Day Years Used Date Smoking Tobacco: Never Sex and Gender Information Value Date Recorded Sex Assigned at Not on file Legal Sex Male 7:09 PM FLOTATION OPERATOR Gender Identity Not on file Sexual Orientation Not on file documented as of this encounter Plan of Treatment Not on file documented as of this encounter Procedures Procedure Name Priority Date/Time Associated Diagnosis Comments CT CHEST WO CONTRAST Routine 10/16/2016 3:56 PM FLOTATION OPERATOR documented in this encounter Results * CT Chest WO Contrast (10/16/2016 3:56 PM FLOTATION OPERATOR) Anatomical Region Laterality Modality Body N/A Computed Tomogra phy 10/16/2016 3:56 PM FLOTATION OPERATOR Narrative 10/17/2016 8:06 AM FLOTATION [place] ?[id number] ??Acc#: ??[id number] DATE OF EXAM: ??Oct 16 2016 CLINICAL HISTORY: Follow up 9 mm nodular opacity left lower lobe of lung seen on June 02 CT abdomen and pelvis. RESULT: Noncontrast spiral axial scans were obtained from above lung apices to below diaphragm. ??Axial and coronal reformatted images were reviewed. Comparison is made to June 02 CT abdomen and pelvis. The 9 mm irregular density in the posterolateral left lower lobe has a punctate central calcification and is felt to represent a granuloma with scarring. ??Considering technical difference between exams, it appears stable. ??No pulmonary infiltrate, mass or pleural effusion is otherwise seen. ??Very minimal apical pleuroparenchymal scarring is noted bilaterally. ??No enlarged hilar or mediastinal lymph nodes are seen. ??One calcified granuloma is present at the left hilum. ??Coronary and thoracic aortic arteriosclerotic calcifications are seen. ??Heart size is normal without pericardial thickening or effusion. ??Minor spurring is noted in the thoracic spine. IMPRESSION: 1. SMALL GRANULOMA WITH SURROUNDING SCAR TISSUE AT THE POSTEROLATERAL LEFT LUNG BASE; UNCHANGED SINCE JUNE 02 CT ABDOMEN AND PELVIS. 2. SMALL GRANULOMA AT LEFT HILUM. 3. CORONARY AND THORACIC AORTIC ARTERIOSCLEROSIS. 4. NO OTHER SIGNIFICANT CHEST FINDINGS. Interpreting Physician: ??DR MARY ELAINE M.D. ??Read on: ??Oct 16 2016 6:46P Transcribed by: ??vam ??On: Oct 16 2016 ??8:32P Approved Electronically by: ??CHELE Torrse, DR HERNANDEZ ??on: ??Oct 17 2016 8:06A Attending: ??JO ANN MEYERS Requesting: ??DR JO ANN MEYERS Requesting Fax: ??[phone] Attending Fax: ??-- Attending ID: ??[id number] Requesting ID: ??[id number] Report To 1 ID: ??[id number] Report To 1 Name: ??JO ANN MEYERS Report To 1 FAX: ??-- NextGen Order #: Procedure Note Provider, MD Robert - 03/25/[place] [id number] Acc#: [id number] DATE OF EXAM: Oct 16 2016 CLINICAL HISTORY: Follow up 9 mm nodular opacity left lower lobe of lung seen on June 02CT abdomen and pelvis. RESULT: Noncontrast spiral axial scans were obtained from above lung apices tobelow diaphragm. Axial and coronal reformatted images were reviewed.Comparison is made to June 02 CT abdomen and pelvis. The 9 mm irregulardensity in the posterolateral left lower lobe has a punctate centralcalcification and is felt to represent a granuloma with scarring.Considering technical difference between exams, it appears stable. Nopulmonary infiltrate, mass or pleural effusion is otherwise seen. Veryminimal apical pleuroparenchymal scarring is noted bilaterally. Noenlarged hilar or mediastinal lymph nodes are seen. One calcifiedgranuloma is present at the left hilum. Coronary and thoracic aorticarteriosclerotic calcifications are seen. Heart size is normal withoutpericardial thickening or effusion. Minor spurring is noted in thethoracic spine. IMPRESSION: 1. SMALL GRANULOMA WITH SURROUNDING SCAR TISSUE AT THE POSTEROLATERAL LEFTLUNG BASE; UNCHANGED SINCE JUNE 02 CT ABDOMEN AND PELVIS. 2. SMALL GRANULOMA AT LEFT HILUM. 3. CORONARY AND THORACIC AORTIC ARTERIOSCLEROSIS. 4. NO OTHER SIGNIFICANT CHEST FINDINGS. Interpreting Physician: DR MARY ELAINE M.D. Read on: Oct 16 20166:46P Transcribed by: ottoniel On: Oct 16 2016 8:32P Approved Electronically by: DR MARY ELAINE M.D. 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
--- OUTSIDE RECORDS SUMMARY | 2024-11-07 09:28 | XMS_ITS | Encounter Summary ---
Author Organization [facility] Facility Care Team Providers Care Gravel Hauler Name Role Phone Unavailable Primary Care Provider Unavailabl e Encounter Details Date Type Department Care Team (Latest Contact Info) Description 02/16/2013 3:47 PM CDT Hospital Encounter [facility] Ehsan Waters MD [address] [place] [address] [place] [address] Routine general medical examination at a health care facility; Coronary atherosclerosis of [place] coronary artery; Hypopotassemia Social History Tobacco Use Types Packs/Day Years Used Date Smoking Tobacco: Never Assessed Sex and Gender Information Value Date Recorded Sex Assigned at Not on file Legal Sex Male 7:09 PM CD MIXER Gender Identity Not on file Sexual Orientation Not on file documented as of this encounter Plan of Treatment Not on file documented as of this encounter Procedures Procedure Name Priority Date/Time Associated Diagnosis Comments PLASMA BASIC METABOLIC PANEL Routine 02/16/2013 3:49 PM CDT DISCHARGE LABORATORY CUMULATIVE REPORT 02/16/2013 documented in this encounter Results * Plasma basic metabolic panel (02/16/2013 3:49 PM CDT) eGFR >60 ml/min/1.7 3 m2 HISTORICAL RESULTS Comment: GFR Reference Range: = > 60 mL/min/1.73 m2 This result has been calculated assuming the patient is Non-. ??If the patient is , please multiply this result by 1.21. Sodium 138 136 - 145 mmol/L HISTORICAL RESULTS K, pl 4.0 3.5 - 5.1 mmol/L HISTORICAL RESULTS Chloride 103 98 - 107 mmol/L HISTORICAL RESULTS CO2 29 21 - 32 mmol/L HISTORICAL RESULTS A. gap 6 3 - 11 mmol/L HISTORICAL RESULTS BUN 14 7 - 18 mg/dl HISTORICAL RESULTS Creatinine 1.1 0.6 - 1.3 mg/dl HISTORICAL RESULTS Glucose 122 70 - 140 mg/dl HISTORICAL RESULTS Comment: Glucose is assumed to be non-fasting. Fasting Glucose normal ranges are: 0 days - 1 month: ? 40 mg/dL - 100 mg/dL 1 month - 999 years: ?70 mg/dL - 99 mg/dL Calcium 8.5 8.5 - 10.1 mg/dl HISTORICAL RESULTS Plasma 02/16/2013 3:49 PM CDT us Ehsan Meléndez MD LAB BLOOD ORDERABLES Final Res ult HISTORICAL RESULTS * DISCHARGE LABORATORY CUMULATIVE REPORT (02/16/2013) Narrative 02/16/2013 Ordered by an unspecified provider. us Historical Provider LAB BLOOD ORDERABLES Citlaly l Result documented in this encounter Visit Diagnoses Diagnosis Routine general medical examination at a health care facility Coronary atherosclerosis of [place] coronary artery Hypopotassemia documented in this encounter
--- OUTSIDE RECORDS SUMMARY | 2024-11-07 09:28 | XMS_ITS | Encounter Summary ---
Author Organization [facility] Healthcare Address [address] [place] [address] Care Team Providers Care Quality Control Associate Name Role Phone Unavailable Primary Care Provider Unavailabl e Encounter Details Date Type Department Care Team (Latest Contact Info) Description 06/14/2016 3:38 PM CDT - 06/14/2016 11:59 PM CDT Hospital Encounter [facility] Jo Ann Landry MD [address] [address] Calculus in bladder; Other cholelithiasis without obstruction; Gross hematuria Social History Tobacco Use Types Packs/Day Years Used Date Smoking Tobacco: Never Sex and Gender Information Value Date Recorded Sex Assigned at Not on file Legal Sex Male 7:09 PM DEPUTY DIRECTOR Gender Identity Not on file Sexual Orientation Not on file documented as of this encounter Plan of Treatment Not on file documented as of this encounter Procedures Procedure Name Priority Date/Time Associated Diagnosis Comments DISCHARGE LABORATORY CUMULATIVE REPORT 06/15/2016 CT ABDOMEN PELVIS W CONTRAST Routine 06/14/2016 5:35 PM CDT SERUM CREATININE Routine 06/14/2016 3:49 PM CDT documented in this encounter Results * DISCHARGE LABORATORY CUMULATIVE REPORT (06/15/2016) Narrative 06/15/2016 Ordered by an unspecified provider. us Historical Provider LAB BLOOD ORDERABLES Citlaly l Result * CT Abdomen Pelvis W Contrast (06/14/2016 5:35 PM CDT) Anatomical Region Laterality Modality Body N/A Computed Tomogra phy 06/14/2016 5:35 PM CDT Narrative 06/15/2016 9:[address] Abd/Pel W ?[id number] ??Acc#: ??[id number] DATE OF EXAM: ??Jun 14 2016 CLINICAL HISTORY: Gross hematuria. ??Hypoechoic lesion right kidney on renal sonogram of 05/29/16. RESULT: Helical CT scan of the abdomen and pelvis obtained following intravenous and oral administration of contrast. ??100 ml of Optiray 320. ??Images from the lung bases to the ischial tuberosities. Kidneys are unremarkable. ??No mass is seen. ??Borderline dilatation left collecting system. ??No significant dilatation of the collecting system of the right kidney. ??Borderline dilatation left ureter. ??A calculus is seen within the urinary bladder on the left at or adjacent to the ureterovesical junction. ??This measures 7.8 x 5.3 mm. ??No right ureteral dilatation identified. ??Small prostate calcification are evident. ??The prostate gland has a transverse dimension of 4.3 cm. ??The urinary bladder is only mildly distended. ??Some prominence of the wall of the urinary bladder, possibly some wall thickening, although this is underdistended. Three small hypodense foci left hepatic lobe. ??Indeterminate in nature due to size. ??A very small dependent density in the gallbladder supporting gallstone. ??No pericholecystic fluid or inflammation identified. ??Small calcification within the spleen represents granuloma. Spleen size within the normal range. ??No pancreatic mass identified. Adrenal glands are unremarkable. ??Moderate fecal material within the colon. ??No significantly dilated small bowel loops are evident. ??Appendix thickness within the normal range. ??Degenerative changes lumbar spine and visualized portions of the lower thoracic spine with spurring. ??Some degenerative changes of the hips with joint space loss. ??A nodular opacity is seen in the left lower lobe. ??This measures 9 mm. ??This has irregular contour. ??A small calcification is seen within this opacity. This may represent scarring with granuloma. IMPRESSION: 1. CALCULUS WITHIN THE URINARY BLADDER ON THE LEFT AT OR ADJACENT TO THE URETEROVESICAL JUNCTION, 7.8 X 5.3 MM. ??BORDERLINE TO MILD DILATATION LEFT URETER. ??BORDERLINE LEFT PELVOCALIECTASIS. 2. EVIDENCE OF CHOLELITHIASIS, WITH APPARENT SINGLE SMALL STONE SEEN. ??NO PERICHOLECYSTIC FLUID OR INFLAMMATION IDENTIFIED. 3. PROMINENCE OF THE WALL OF THE URINARY BLADDER, RAISING THE POSSIBILITY OF SOME MILD WALL THICKENING, ALTHOUGH THIS IS UNDERDISTENDED. 4. SMALL NODULAR OPACITY LEFT LOWER LOBE. ??IRREGULAR CONTOUR. ??POSSIBLE SCARRING. ??FOLLOW UP MAY BE BENEFICIAL. ??COMPARISON WITH ANY PRIOR STUDY (UNAVAILABLE TO US AT THIS TIME) WOULD BE BENEFICIAL. ??ALTERNATIVELY FOLLOW UP WITH CT IN 4 MONTHS MAY BE BENEFICIAL. 5. A FEW VERY SMALL HYPODENSE FOCI WITHIN THE LEFT HEPATIC LOBE. INDETERMINATE IN NATURE DUE TO SIZE, MOST COMMONLY REPRESENTING CYST. Interpreting Physician: ??SARITA ORTEGA M.D. ??Read on: ??Jun 14 2016 ??5:58P Transcribed by: ??[email or web address] ??On: Jun 14 2016 ??7:04P Approved Electronically by: ??SARITA ORTEGA M.D. ??on: ??Jun 15 2016 ??9:19A Attending: ??JO ANN LOZOYA Requesting: ??DR JO ANN LOZOYA Requesting Fax: ??[phone] Attending Fax: ??-- Attending ID: ??[id number] Requesting ID: ??[id number] Report To 1 ID: ??[id number] Report To 1 Name: ??JO ANN LOZOYA Report To 1 FAX: ??-- NextGen Order #: Procedure Note Provider, MD Robert - 03/20/[address] Abd/Pel W [id number] Acc#: [id number] DATE OF EXAM: Jun 14 2016 CLINICAL HISTORY: Gross hematuria. Hypoechoic lesion right kidney on renal sonogram of05/29/16. RESULT: Helical CT scan of the abdomen and pelvis obtained following intravenousand oral administration of contrast. 100 ml of Optiray 320. Images fromthe lung bases to the ischial tuberosities. Kidneys are unremarkable. [place] is seen. Borderline dilatation left collecting system. Nosignificant dilatation of the collecting system of the right kidney.Borderline dilatation left ureter. A calculus is seen within the urinarybladder on the left at or adjacent to the ureterovesical junction. Thismeasures 7.8 x 5.3 mm. No right ureteral dilatation identified. Smallprostate calcification are evident. The prostate gland has a transversedimension of 4.3 cm. The urinary bladder is only mildly distended. Someprominence of the wall of the urinary bladder, possibly some wallthickening, although this is underdistended. Three small hypodense focileft hepatic lobe. Indeterminate in nature due to size. A very smalldependent density in the gallbladder supporting gallstone. No pericholecystic fluid or inflammation identified. Small calcificationwithin the spleen represents granuloma. Spleen size within the normalrange. No pancreatic mass identified. Adrenal glands are unremarkable.Moderate fecal material within the colon. No significantly dilated smallbowel loops are evident. Appendix thickness within the normal range.Degenerative changes lumbar spine and visualized portions of the lowerthoracic spine with spurring. Some degenerative changes of the hips withjoint space loss. A nodular opacity is seen in the left lower lobe. Thismeasures 9 mm. This has irregular contour. A small calcification is seenwithin this opacity. This may represent scarring with granuloma. IMPRESSION: 1. CALCULUS WITHIN THE URINARY BLADDER ON THE LEFT AT OR ADJACENT TO THEURETEROVESICAL JUNCTION, 7.8 X 5.3 MM. BORDERLINE TO MILD DILATATION LEFTURETER. BORDERLINE LEFT PELVOCALIECTASIS. 2. EVIDENCE OF CHOLELITHIASIS, WITH APPARENT SINGLE SMALL STONE SEEN. NOPERICHOLECYSTIC FLUID OR INFLAMMATION IDENTIFIED. 3. PROMINENCE OF THE WALL OF THE URINARY BLADDER, RAISING THE POSSIBILITYOF SOME MILD WALL THICKENING, ALTHOUGH THIS IS UNDERDISTENDED. 4. SMALL NODULAR OPACITY LEFT LOWER LOBE. IRREGULAR CONTOUR. POSSIBLESCARRING. FOLLOW UP MAY BE BENEFICIAL. COMPARISON WITH ANY PRIOR STUDY(UNAVAILABLE TO US AT THIS TIME) WOULD BE BENEFICIAL. ALTERNATIVELYFOLLOW UP WITH CT IN 4 MONTHS MAY BE BENEFICIAL. 5. A FEW VERY SMALL HYPODENSE FOCI WITHIN THE LEFT HEPATIC LOBE.INDETERMINATE IN NATURE DUE TO SIZE, MOST COMMONLY REPRESENTING CYST. Interpreting Physician: SARITA ORTEGA M.D. Read on: Jun 14 2016 5:58P Transcribed by: ottoniel On: Jun 14 2016 7:04P Approved Electronically by: SARITA ORTEGA M.D. on: Jun 15 2016 9:19A Attending: JO ANN LOZOYA Requesting: DR JO ANN LOZOYA Requesting Attending Fax: -- Attending ID: [id number] Requesting ID: [id number] Report To 1 ID: [id number] Report To 1 Name: JO ANN LOZOYA Report To 1 FAX: -- NextGen Order #: us Historical Provider IMG CT PROCEDURES Final R esult * (ABNORMAL) Serum creatinine (06/14/2016 3:49 PM CDT) Creatinine, bld 1.45(H) 0.60 - 1.30 mg/dl CDR HISTORICAL RESULTS Serum 06/14/2016 3:49 PM CDT Jo Ann Lozoya MD LAB BLOOD ORDERABLES Citlaly l Result CDR HISTORICAL RESULTS documented in this encounter Visit Diagnoses Diagnosis Calculus in bladder Other calculus in bladder Other cholelithiasis without obstruction Gross hematuria documented in this encounter
--- OUTSIDE RECORDS SUMMARY | 2024-11-07 09:28 | XMS_ITS | Encounter Summary ---
Author Organization [facility] Healthcare Address [address] [place] [address] Care Team Providers Care Territory Sales Consultant Name Role Phone John Lozoya MD Primary Care Provider [phone] Encounter Details Date Type Department Care Team (Latest Contact Info) Description 04/03/2022 3:52 PM CDT - 04/03/2022 11:59 PM CDT Hospital Encounter [facility] [address] [place] [id number] Diagnosis unknown Discharge Disposition: Discharge to home or self care Social History Tobacco Use Types Packs/Day Years Used Date Smoking Tobacco: Never Sex and Gender Information Value Date Recorded Sex Assigned at Not on file 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 Gender Identity Not on file Sexual Orientation Not on file documented as of this encounter Medications at Time of Discharge amLODIPine (NORVASC) 5 mg tabletIndication s:hypertension Take 1 tablet (5 mg total) by mouth every morning 03/17/2022 metoprolol tartrate (LOPRESSOR) 50 mg immediate release [...] mouth 2 (two) times a day 03/17/2022 HYDROcodone-acet aminophen (NORCO) 5-325 mg per tablet Take 1 tablet by mouth every 4 (four) hours as needed for pain 02/19/2022 2 Klor-Con M10 10 mEq CR tabletIndication s:hypokalemia prevention Take 1 tablet/capsule (10 mEq total) by mouth every morning 02/28/2022 3 potassium citrate ER (UROCIT-K) 10 mEq (1,080 mg) CR tablet Take 10 mEq by mouth daily 02/02/2022 2 rosuvastatin (CRESTOR) 10 mg tabletIndication s:hyperlipidemia Take 1 tablet (10 mg total) by mouth nightly 03/17/2022 3 documented as of this encounter Discharge Disposition Disposition Code Departure Means Destination Discharge to home or self care documented in this encounter Plan of Treatment Not on file documented as of this encounter Procedures Procedure Name Priority Date/Time Associated Diagnosis Comments MR BODY OUTSIDE CONSULT Routine 04/03/2022 3:52 PM CDT Diagnosis unknown documented in this encounter Results * MR Body Outside Consult (04/03/2022 3:52 PM CDT) Anatomical Region Laterality Modality Body N/A Magnetic Resonan ce 04/04/2022 10:1 1 AM CDT Impressions 04/04/2022 2:56 PM CDT 1. A lesion in the right lateral peripheral zone at the mid gland to apex is at very high suspicion for malignancy with an overall PI-RADS score of 5. No gross extraprostatic extension. 2. ??11 mm enhancing lesion in the left iliac bone, unchanged in size from 2016, is probably benign given stability and could represent sequela of prior biopsy. Bone scintigraphy may be performed if further characterization is desired. The findings, conclusions and recommendations within this report do not replace the initial findings, conclusions ??and recommendations made at the facility where the study was performed based upon the imaging and clinical condition at that time. ??Comparison with the prior report and clinical history is necessary. ??The provided images may or may not represent the walker river source data set and thus may contain changes that may lower the accuracy of this second-opinion interpretation. Dictated by: Vale Bolivar MD ??PHD The radiology attending physician has personally reviewed this study, and had reviewed and/or edited this written report and agrees with it. Electronically signed by: Sabrina Plasencia M.D. Narrative 04/04/2022 2:56 PM CDT EXAMINATION: RADIOLOGY CONSULTATION ON OUTSIDE IMAGING STUDY STUDY INITIALLY PERFORMED: 12/14/2021 at [facility] TYPE OF STUDY: Multiple MR images of the pelvis with and without intravenous contrast are provided at the time of this interpretation. The protocol was adequate to address the clinical question. The outside final report was not available at the time of this second opinion interpretation. TYPE OF CONSULTATION: Consult on outside imaging study with images submitted through [facility] DATE OF CONSULTATION: 04/04/2022 9:26 AM HISTORY: Prostate cancer, new diagnosis. COMPARISON: CT 06/14/2016 FINDINGS: Prostate volume: 26 cc The prostate was assessed using the PI-RADS version 2.1 scoring system. The following lesions are of at least intermediate suspicion (PI-RADS 3 or greater): Lesion 1: Side: right Location: lateral Zone: peripheral zone Craniocaudal: mid gland to apex Suazo images: series 10, image [id number] Size: 2 mL; largest axial dimensions 22 x 11 mm Extraprostatic extension: - tumor contact length with prostate margin: Greater than 15 mm - margin bulge/irregularity: yes - rectoprostatic angle obliteration: no - neurovascular bundle asymmetry: no - gross extraprostatic extension: no - overall EPE grade: 2 ( both curvilinear contact length > 15 mm AND margin irregularity/bulge) T2WI score: 5 DWI score: 5 DCE: positive Overall PI-RADS v2.1 assessment: 5 Staging Information: ??No enlarged lymph nodes are identified. 11 mm T1-hypointense enhancing lesion in the left iliac bone, stable from prior CT dated 2015. Other findings: Bladder is normal. ??Visualized bowel is normal in caliber. ??No ascites. Procedure Note Sabrina Plasencia MD - 04/04/2022 EXAMINATION: RADIOLOGY CONSULTATION ON OUTSIDE IMAGING STUDY STUDY INITIALLY PERFORMED: 12/14/2021 at [facility] TYPE OF STUDY: Multiple MR images of the pelvis with and without intravenous contrast are provided at the time of this interpretation. The protocol was adequate to address the clinical question. The outside final report was not available at the time of this second opinion interpretation. TYPE OF CONSULTATION: Consult on outside imaging study with images submitted through [facility] DATE OF CONSULTATION: 04/04/2022 9:26 AM HISTORY: Prostate cancer, new diagnosis. COMPARISON: CT 06/14/2016 FINDINGS: Prostate volume: 26 cc The prostate was assessed using the PI-RADS version 2.1 scoring system. The following lesions are of at least intermediate suspicion (PI-RADS 3 or greater): Lesion 1: Side: right Location: lateral Zone: peripheral zone Craniocaudal: mid gland to apex Suazo images: series 10, image [id number] Size: 2 mL; largest axial dimensions 22 x 11 mm Extraprostatic extension: - tumor contact length with prostate margin: Greater than 15 mm - margin bulge/irregularity: yes - rectoprostatic angle obliteration: no - neurovascular bundle asymmetry: no - gross extraprostatic extension: no - overall EPE grade: 2 ( both curvilinear contact length > 15 mm AND margin irregularity/bulge) T2WI score: 5 DWI score: 5 DCE: positive Overall PI-RADS v2.1 assessment: 5 Staging Information: No enlarged lymph nodes are identified. 11 mm T1-hypointense enhancing lesion in the left iliac bone, stable from prior CT dated 2016. Other findings: Bladder is normal. Visualized bowel is normal in caliber. No ascites. IMPRESSION: 1. A lesion in the right lateral peripheral zone at the mid gland to apex is at very high suspicion for malignancy with an overall PI-RADS score of 5. No gross extraprostatic extension. 2. 11 mm enhancing lesion in the left iliac bone, unchanged in size from 2016, is probably benign given stability and could represent sequela of prior biopsy. Bone scintigraphy may be performed if further characterization is desired. The findings, conclusions and recommendations within this report do not replace the initial findings, conclusions and recommendations made at the facility where the study was performed based upon the imaging and clinical condition at that time. Comparison with the prior report and clinical history is necessary. The provided images may or may not represent the walker river source data set and thus may contain changes that may lower the accuracy of this second-opinion interpretation. Dictated by: Vale Bolivar MD PHD The radiology attending physician has personally reviewed this study, and had reviewed and/or edited this written report and agrees with it. Electronically signed by: Sabrina Plasencia M.D. Armen Rodrigues MD IM MRI PROCEDURES Final Result documented in this encounter Visit Diagnoses Diagnosis Diagnosis unknown documented in this encounter Care Teams Territory Sales Consultant Relationship Specialty Start Date End Date John Lozoya MD [address] [address] PCP - General Family Medicine 04/03/22 documented as of this encounter
--- OUTSIDE RECORDS SUMMARY | 2024-11-07 09:28 | XMS_ITS | Encounter Summary ---
Author Organization 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 Gender Identity Not on file Sexual Orientation Not on file documented as of this encounter Plan of Treatment Not on file documented as of this encounter Procedures Procedure Name Priority Date/Time Associated Diagnosis Comments PLASMA LIPID PANEL Routine 02/04/2013 4: 29 PM CDT PLASMA CREATINE KINASE (CK) Routine 02/04/2013 4:29 PM CDT PLASMA COMPREHENSIVE METABOLIC PANEL Routine 02/04/2013 4:29 PM CDT DISCHARGE LABORATORY CUMULATIVE REPORT 02/04/2013 documented in this encounter Results * (ABNORMAL) Plasma comprehensive metabolic panel (02/04/2013 4:29 PM CDT) eGFR >60 ml/min/1.7 3 m2 HISTORICAL RESULTS Comment: GFR Reference Range: = > 60 mL/min/1.73 m2 This result has been calculated assuming the patient is Non-. ??If the patient is , please multiply this result by 1.21. Sodium 137 136 - 145 mmol/L HISTORICAL RESULTS K, pl 3.7 3.5 - 5.1 mmol/L HISTORICAL RESULTS Chloride 102 98 - 107 mmol/L HISTORICAL RESULTS CO2 30 21 - 32 mmol/L HISTORICAL RESULTS A. gap 5 3 - 11 mmol/L HISTORICAL RESULTS BUN 11 7 - 18 mg/dl HISTORICAL RESULTS Creatinine 1.0 0.6 - 1.3 mg/dl HISTORICAL RESULTS Glucose 114 70 - 140 mg/dl HISTORICAL RESULTS Comment: Glucose is assumed to be non-fasting. Fasting Glucose normal ranges are: 0 days - 1 month: ? 40 mg/dL - 100 mg/dL 1 month - 999 years: ?70 mg/dL - 99 mg/dL Protein, pl 8.0 6.4 - 8.2 g/dl HISTORICAL RESULTS Alb 4.4 3.4 - 5.0 g/dl HISTORICAL RESULTS Calcium 8.7 8.5 - 10.1 mg/dl HISTORICAL RESULTS Alk phos 59 50 - 136 Units/L HISTORICAL RESULTS Bilirubin 0.4 0.1 - 1.0 mg/dl HISTORICAL RESULTS ALT 34 30 - 65 Units/L HISTORICAL RESULTS AST 12(L) 15 - 37 Units/L HISTORICAL RESULTS Plasma 02/04/2013 4:29 PM CDT Ehsan Meléndez MD LAB BLOOD ORDERABLES Final Res ult Performing Organization Address [facility] Co de Phone Number HISTORICAL RESULTS * (ABNORMAL) Plasma lipid panel (02/04/2013 4:29 PM CDT) [facility] Cholesterol 109(L) 140 - 199 mg/dl HISTORICAL RESULTS Triglycerides 103 20 - 150 mg/dl HISTORICAL RESULTS HDL 31(L) 40 - 60 mg/dl HISTORICAL RESULTS LDL 57(L) 65 - 100 mg/dl HISTORICAL RESULTS Plasma 02/04/2013 4:29 PM CDT Ehsan Meléndez MD LAB BLOOD ORDERABLES Final Res ult HISTORICAL RESULTS * (ABNORMAL) Plasma creatine kinase (CK) (02/04/2013 4:29 PM CDT) CK 246(H) 35 - 232 Units/L HISTORICAL RESULTS Plasma 02/04/2013 4:29 PM CDT us Ehsan Meléndez MD LAB BLOOD ORDERABLES Final Res ult HISTORICAL RESULTS * DISCHARGE LABORATORY CUMULATIVE REPORT (02/04/2013) Narrative 02/04/2013 Ordered by an unspecified provider. us Historical Provider LAB BLOOD ORDERABLES Citlaly l Result documented in this encounter Visit Diagnoses Diagnosis Coronary atherosclerosis Coronary atherosclerosis of unspecified type of vessel, [place] or graft documented in this encounter
--- OUTSIDE RECORDS SUMMARY | 2024-11-07 09:28 | XMS_ITS | Encounter Summary ---
Author Organization [facility] Healthcare Address [address] [place] [address] Care Team Providers Care Physician Intensivist Name Role Phone John Lozoya MD Primary Care Provider [phone] Encounter Details Date Type Department Care Team (Late st Contact Info) Description 04/27/2022 3:40 PM CDT Lab [facility] [address] [place] [address] Preoperative testing; Disorder of prostate, unspecified ; Diabetes mellitus due to underlying condition with hyperglycemia, without long-term current use of insulin ([facility]/HCC) ([facility]) Social History Tobacco Use Types Packs/Day Years [...] on file 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 Gender Identity Not on file Sexual Orientation Not on file documented as of this encounter Plan of Treatment Not on file documented as of this encounter Procedures Procedure Name Priority Date/Time Associated Diagnosis Comments HC ANTIBODY SCREEN RBC Routine 04/27/2022 3:40 PM CDT Preoperative testing EGFR Routine 04/27/2022 3:40 PM CDT Preoperative testing DIFFERENTIAL AUTO Routine 04/27/2022 3:4 0 PM CDT Preoperative testing CBC WITH AUTO DIFFERENTIAL Routine 04/27/2022 3:40 PM CDT Preoperative testing ABO/RH Routine 04/27/2022 3:40 PM CDT Preoperative testing ANTIBODY SCREEN Routine 04/27/2022 3:40 PM CDT Preoperative testing HEMOGLOBIN A1C Routine 04/27/2022 3:40 PM CDT Diabetes mellitus due to underlying condition with hyperglycemia, without long-term current use of insulin (CMS/HCC) (HCC) Preoperative testing BASIC METABOLIC PANEL Routine 04/27/2022 3:40 PM CDT Preoperative testing URINE CULTURE Routine 04/27/2022 3:39 PM CDT Disorder of prostate, unspecified Preoperative testing documented in this encounter Results * eGFR (04/27/2022 3:40 PM CDT) [facility] eGFR 51 mL/min/1. 73 m2 [facility] Comment: Interpretive Data Reference Interval Normal ?>/= 90 mL/min/1.73m2 Mildly decreased* ? 60 - 89 mL/min/1.73m2 Mildly to moderately decreased ?45 - 59 mL/min/1.73m2 Moderately to severely decreased ??30 - 44 mL/min/1.73m2 Severely decreased ?15 - 29 mL/min/1.73m2 Kidney Failure ?< 15 ??mL/min/1.73m2 *Relative to young adult level Estimated glomerular filtration rate is determined by the 2020 CKD-EPI equation recommended by the National Kidney Foundation (A Unifying Approach to GFR Estimation: Recommendations of the NKF-ASK Task Force on Reassessing the Inclusion of Race in Diagnosing Kidney Disease, JASN 2020). The CKD-EPI equation should not be used for patients with unstable renal function and has not been validated in children and those over 70. Current interpretive data was last reviewed 2021. Blood 04/27/2022 3:40 PM CDT 04/27/2022 3:57 PM CDT Reta Mclaughlin NP LAB BLOOD ORDERABLES F inal Result [facility] [address] [facility]. Department [place] [address] * Differential, auto (04/27/2022 3:40 PM CDT) Neutrophil abs 2.2 1.7 - 6.5 K/cumm [facility] Imm gran abs 0.0 0.0 - 0.1 K/cumm [facility] Lymphocyte abs 1.2 0.8 - 3.3 K/cumm [facility] Monocyte abs 0.6 0.2 - 0.8 K/cumm [facility] Eosinophil abs 0.1 0.0 - 0.5 K/cumm [facility] Basophil abs 0.0 0.0 - 0.1 K/cumm [facility] Neutrophil pct 52.4 % [facility] Comment: Interpretive Data Percent cell count reference ranges are not reported, since discordance with absolute values may lead to misinterpretation of CBC data. Current Interpretive Data was last revised on 2018. Imm gran pct 0.2 % [facility] Comment: Interpretive Data Percent cell count reference ranges are not reported, since discordance with absolute values may lead to misinterpretation of CBC data. Current Interpretive Data was last revised on 2018. Lymphocyte pct 29.3 % [facility] Comment: Interpretive Data Percent cell count reference ranges are not reported, since discordance with absolute values may lead to misinterpretation of CBC data. Current Interpretive Data was last revised on 2018. Monocyte pct 14.5 % [facility] Comment: Interpretive Data Percent cell count reference ranges are not reported, since discordance with absolute values may lead to misinterpretation of CBC data. Current Interpretive Data was last revised on 2018. Eosinophil pct 2.9 % [facility] BR[facility] Comment: Interpretive Data Percent cell count reference ranges are not reported, since discordance with absolute values may lead to misinterpretation of CBC data. Current Interpretive Data was last revised on 2018. Basophil pct 0.7 % [facility] BR[facility] Comment: Interpretive Data Percent cell count reference ranges are not reported, since discordance with absolute values may lead to misinterpretation of CBC data. Current Interpretive Data was last revised on 2018. Blood 04/27/2022 3:40 PM CDT 04/27/2022 3:57 PM CDT Reta Mclaughlin NP LAB BLOOD ORDERABLES F inal Result Performing Organization Address [facility] Co de Phone Number [facility] [phone] [facility] [address] [place] [address] * Antibody screen (04/27/2022 3:40 PM CDT) Jagdeep, indirect, Gel Interpretation Negative ABSC [facility] Blood 04/27/2022 3:40 PM CDT 04/27/2022 3:57 PM CDT Narrative [facility] BR[facility] - 04/27/2022 4:52 PM CDT Is this test being ordered in advance for a procedure?->Yes Expected date of procedure:->05/01/22 Has the patient been transfused in the past 3 months?->No Reta Mclaughlin NP LAB BLOOD BANK TEST OR DERABLES Final Result Performing Organization Address [facility]/ZIP Co de Phone Number [facility] [phone] [facility] [address] [place], [place] [id number] * ABO/Rh (04/27/2022 3:40 PM CDT) ABO/Rh A Negative [facility] Blood 04/27/2022 3:40 PM CDT 04/27/2022 3:57 PM CDT Narrative [facility] BRIONES - 04/27/2022 4:52 PM CDT Is this test being ordered in advance for a procedure?->Yes Expected date of procedure:->05/01/22 Has the patient been transfused in the past 3 months?->No Reta Mclaughlin NP LAB BLOOD BANK TEST OR DERABLES Final Result Performing Organization Address [facility] Co de Phone Number [facility] [phone] [employer]. [facility] [address] [place] [address] * (ABNORMAL) Hemoglobin A1c (04/27/2022 3:40 PM CDT) Hgb A1C 6.7(H) 4.0 - 5.6 % [facility]ER[facility] BRIONES Comment:Testing performed by : [facility], [address] [place] [address]., [id number] Estimated Average Glucose 146 mg/dL [facility]ER[facility] BRIONES Comment: The ADA recommends reporting an estimated Average Glucose (eAG) with all Hemoglobin A1c results using the equation derived from a study of 507 normal and diabetic adults. ??Minority populations were underrepresented and children were not included. ?? (Diabetes Care 31:5935-1806, 2008). ??The eAG is not equivalent to a fasting glucose. Testing performed by: [facility], [address] [place] [address]., [id number] Blood 04/27/2022 3:40 PM CDT 04/27/2022 6:17 PM CDT Reta Mclaughlin NP LAB BLOOD ORDERABLES F inal Result Performing Organization Address [facility] Co de [facility] [phone] [employer] [facility] [place] [address] * (ABNORMAL) Basic metabolic panel (04/27/2022 3:40 PM CDT) Pathologist [facility] Sodium 140 135 - 145 mmol/L [facility] Potassium, pl 4.7 3.3 - 4.9 mmol/L [facility] Chloride 103 97 - 110 mmol/L [facility] CO2 24 22 - 32 mmol/L [facility] Anion gap 13 2 - 15 mmol/L [facility] BUN 24 8 - 25 mg/dL [facility] Creatinine 1.50(H) 0.80 - 1.30 mg/dL [facility] Glucose 137 70 - 199 mg/dL [facility] Comment: Interpretive Data Fasting glucose >/= 126 mg/dl is diagnostic for diabetes. ?? Fasting is defined as no caloric intake for at least 8 hours. Fasting glucose between 100 mg/dl to 125 mg/dl is diagnostic of prediabetes. In a patient with classic symptoms of hyperglycemia or hyperglycemic crisis, a random glucose >/= 200 mg/dl is diagnostic for diabetes. In the absence of unequivocal hyperglycemia, results should be confirmed by repeat testing. The classification and Diagnosis of Diabetes Diabetes Care 2017;40 (Suppl. 1):S11. Current interpretive data was last revised 2017. Calcium 9.7 8.5 - 10.3 mg/dL [facility] Blood 04/27/2022 3:40 PM CDT 04/27/2022 3:57 PM CDT Reta Mclaughlin NP LAB BLOOD ORDERABLES F inal Result [facility] [address] [facility] Department of [employer] [place], [place] [id number] * (ABNORMAL) CBC with auto differential (04/27/2022 3:40 PM CDT) Pathologist [facility] WBC 4.2 3.8 - 9.9 K/cumm [facility] Hgb 13.3 13.0 - 17.5 g/dL [facility] Hct 39.3 38.9 - 50.3 % [facility] Plt 195 150 - 400 K/cumm [facility] MPV 9.6 9.1 - 12.3 fL [facility] RBC 4.19(L) 4.30 - 5.80 M/cumm [facility] MCV 93.8 81.3 - 96.4 fL [facility] MCH 31.7 27.1 - 33.3 pg [facility] MCHC 33.8 32.3 - 35.7 g/dL [facility] RDW CV 12.8 11.1 - 14.9 % [facility] RDW SD 43.8 35.7 - 48.1 fL [facility] NRBC abs 0.00 0.00 - 0.01 K/cumm [facility] Blood 04/27/2022 3:40 PM CDT 04/27/2022 3:57 PM CDT Reta Mclaughlin NP LAB BLOOD ORDERABLES F inal Result Performing Organization Address City/[facility]/ZIP Co de Phone Number [facility] [phone] [employer] [email or web address] [address] * (ABNORMAL) Urine culture Urine, clean voided (04/27/2022 3:39 PM CDT) Report Amended Report: Growth indicates contamination with gram-positive jackson. (.) [facility] Comment:Testing performed by : [facility], [address] [place] [address], [place]., [address] Organism GROWTH INDICATES CONTAMINATION WITH GRAM-POS JACKSON [facility] Urine, clean voided 04/27/2022 3:39 PM CDT 04/27/2022 6:21 PM CDT Reta Mclaughlin NP LAB MICROBIOLOGY - GEN ERAL ORDERABLES Edited Result - Final [facility] [address] [employer] [email or web address] [address] documented in this encounter Visit Diagnoses Diagnosis Preoperative testing Unspecified pre-operative examination Disorder of prostate, unspecified Diabetes mellitus due to underlying condition with hyperglycemia, without long- term current use of insulin ([facility]/HCC) (HCC) documented in this encounter Care Teams Physician Intensivist Relationship Specialty Start Date End Date John Lozoya MD [address] [address] PCP - General Family Medicine 04/03/22 documented as of this encounter
--- OUTSIDE RECORDS SUMMARY | 2024-11-07 09:28 | XMS_ITS | Encounter Summary ---
Author Organization [facility] Healthcare Address [address] [place] [address] Care Team Providers Care Boiler House Mechanic Name Role Phone John Lozoya MD Primary Care Provider [phone] Reason for Visit * Auth/Cert Specialty Diagnoses / Procedures Referred By Contac t Referred To Contact Diagnoses Prostate cancer (HCC) Prostate cancer (CMS/HCC) (HCC) [C61] Procedures DE LAP,PROSTATECTOMY,RADICAL,W/NERVE SPARE,INCL ROBOTIC XI PROSTATECTOMY - LAPAROSCOPIC ROBOTIC ASSISTED XI ROBOTIC PELVIC LYMPH NODE Referral ID Status Reason Start Date Expiration Date Visits Re quested Visits Authorized [id number] 1 1 Encounter Details Date Type Department Care Team (Late st Contact Info) Description 05/01/2022 7:15 AM CDT - 05/01/2022 11:15 AM CDT Surgery [facility] Operating Room [address] [place] [id number] Armen Rodrigues MD [address] [place] [address] XI PROSTATECTOMY - LAPAROSCOPIC ROBOTIC ASSISTED Surgery Details Date/Time Status Location OR Service Patient Class Case Cl ass Case Type Trauma Case? 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 Gender Identity Not on file Sexual Orientation Not on file documented as of this encounter Last Filed Vital Signs Vital Sign Reading Time Taken Comments Blood Pressure 143/64 05/01/2022 11:05 AM CDT Pulse 83 05/01/2022 11:05 AM CDT Temperature 37.2 ??C (98.96 ??F) 05/01/2022 11:05 AM CDT Respiratory Rate 14 05/01/2022 11:05 AM CDT Oxygen Saturation 97% 05/01/2022 11:05 AM CDT Inhaled Oxygen Concentration - - [...] Care Physician at Discharge: John Lozoya MD [phone] Admission Date: 05/01/2022 Discharge Date: 05/02/2022 Admission Location: [facility] Problems/Diagnoses: Principal Problem: Prostate cancer [...] by Dr. Lilia velásquez to have his Jacob catheter removed. Strict return precautions were provided [...] also call the results of your pathology [facility]. If you do not hear back within 10 business days, or if you have any questions, please call . Active issues requiring follow up: Jacbo catheter removal Test results pending at discharge: [...] and Planning Preoperative Evaluation Record Evaluation type/location: CPAP W Planned procedure site: [facility] OR Date: 04/27/22 Anesthesia Evaluation Alexey Gibbs [...] + Other arrhythmia - RBBB. Pertinent negatives: OK ; valvular heart disease; atrial fibrillation; pacemaker/ICD; [...] have a full 7 days off Aspirin. Mechio staff message sent to surgeon's office. Please call the CPAP attending [phone]) with any questions. Patient's COVID19 status is: [...] ~ with Dr. Ehsan Meléndez, Cardiology at [facility]. Will retrieve results and most recent OVN for chart completion<< Preoperative evaluation performed by Reta Mclaughlin NP on 04/27/22 at 3:16 PM. . Follow up note 1 Labs reviewed and are significant for: Creatinine of 1.5 with Creatinine Clearance of 52.5 ml/min. Serum creatinine was 1.45 on 06/14/2016. Urine culture shows contamination. Mechio message sent to surgeon's office with urine [...] List Status: Nurse Complete Set By: Nasir Garces RN at 04/27/2022 2:46 PM Taking? Last [...] current state is cooperative and interactive. Vitals: 04/27/22 1445 04/27/22 1450 BP: 118/56 122/66 Pulse: [...] Medication protocol when under care of a VERIFYING SPECIALIST Planned anesthesia: General Team communication plan: oral [...] 7:38 AM CDT OPERATIVE REPORT FACILITY ID: [facility] SURGEON Armen Rodrigues M.D. CONSTRUCTION PROJECT COORDINATOR Yenifer Clark MD ANESTHESIA: General. PREOPERATIVE DIAGNOSIS [...] trocars were placed across the midline and assistant federal public defender port was placed in the left lower [...] POC 127 70 - 199 mg/dL FEDERICO BRIONES Comment: Interpretive Data Glucose is assumed to be non-fasting. Fasting Glucose reference ranges are: 0 - 150 years: ??70 mg/dL - 99 mg/dL Current interpretive data was last revised on 2014. POC Performer [id number] [facility] P[facility] Device Number [id number] [facility] Blood 05/02/2022 8:08 AM CDT 05/02/2022 8:08 AM CDT Armen Rodrigues MD LAB POCT ORDERABLES - DEVICE Fi nal Result FEDERICO BELTRÁNWCH [address] [facility]. [place] [address] * (ABNORMAL) POCT glucose (05/01/2022 9:33 PM CDT) Glucose, POC 218(H) 70 - 199 mg/dL FEDERICO ADAIR Comment: Interpretive Data Glucose is assumed to be non-fasting. Fasting Glucose reference ranges are: 0 - 150 years: ??70 mg/dL - 99 mg/dL Current interpretive data was last revised on 2014. POC Performer [id number] [facility] POC Device Number [id number] FED[facility] Blood 05/01/2022 9:33 PM CDT 05/01/2022 9:33 PM CDT Armen Rodrigues MD LAB POCT ORDERABLES - DEVICE Fi nal Result Performing Organization Address [facility] Co de Phone Number [facility] [address] [facility] [place] [address] * (ABNORMAL) POCT glucose (05/01/2022 6:23 PM CDT) Glucose, POC 212(H) 70 - 199 mg/dL [facility] Comment: Interpretive Data Glucose is assumed to be non-fasting. Fasting Glucose reference ranges are: 0 - 150 years: ??70 mg/dL - 99 mg/dL Current interpretive data was last revised on 2014. POC Performer [id number] AGELON ? POC Device Number [id number] [employer] [facility] Blood 05/01/2022 6:23 PM CDT 05/01/2022 6:23 PM CDT Armen Rodrigues MD LAB POCT ORDERABLES - DEVICE Fi nal Result Performing Organization Address [facility] Phone Number [facility] [address] [facility] [place] [address] * POCT glucose (05/01/2022 3:47 PM CDT) Glucose, POC 160 70 - 199 mg/dL [facility] Comment: Interpretive Data Glucose is assumed to be non-fasting. Fasting Glucose reference ranges are: 0 - 150 years: ??70 mg/dL - 99 mg/dL Current interpretive data was last revised on 2014. POC Performer [id number] [employer] POC Device Number [id number] [facility] Blood 05/01/2022 3:47 PM CDT 05/01/2022 3:47 PM CDT Armen Rodrigues MD LAB POCT ORDERABLES - DEVICE Fi nal Result Performing Organization Address [facility] Co de Phone Number [facility] [address] [facility] [place] [address] * POCT glucose (05/01/2022 12:12 PM CDT) Glucose, POC 197 70 - 199 mg/dL FEDERICO ADAIR Comment: Interpretive Data Glucose is assumed to be non-fasting. Fasting Glucose reference ranges are: 0 - 150 years: ??70 mg/dL - 99 mg/dL Current interpretive data was last revised on 2014. POC Performer [id number] [facility] POC Device Number [id number] [facility] Blood 05/01/2022 12:1 2 PM CDT 05/01/2022 12:12 PM CDT Armen Rodrigues MD LAB POCT ORDERABLES - DEVICE Fi nal Result Performing Organization Address [facility] de Phone Number [facility] [address] [place] [address] * (ABNORMAL) POCT glucose (05/01/2022 10:54 AM CDT) Glucose, POC 215(H) 70 - 199 mg/dL [facility] Comment: Interpretive Data Glucose is assumed to be non-fasting. Fasting Glucose reference ranges are: 0 - 150 years: ??70 mg/dL - 99 mg/dL Current interpretive data was last revised on 2014. POC Performer [id number] [facility] POC Device Number [id number] [facility] Blood 05/01/2022 10:5 4 AM CDT 05/01/2022 10:54 AM CDT Armen Rodrigues MD LAB POCT ORDERABLES - DEVICE Fi nal Result Performing Organization Address [facility] Co de Phone Number [facility] [address] [place] [address] * (ABNORMAL) POCT glucose (05/01/2022 10:15 AM CDT) Glucose, POC 213(H) 70 - 199 mg/dL FEDERICO BRIONES Comment: Interpretive Data Glucose is assumed to be non-fasting. Fasting Glucose reference ranges are: 0 - 150 years: ??70 mg/dL - 99 mg/dL Current interpretive data was last revised on 2014. POC Performer [id number] FEDER[facility] POC Device Number [id number] FEDERICO BELTRÁNWCH Blood 05/01/2022 10:1 5 AM CDT 05/01/2022 10:15 AM CDT us Armen Rodrigues MD LAB POCT ORDERABLES - DEVICE Fi nal Result FEDERICO BELTRÁNCH [address] [facility]. [place] [address] * Surgical pathology (05/01/2022 10:15 AM CDT) Tissue (Prostate, Prostatectomy) 05/01/2022 10:15 AM CDT Tissue (Lymph node, dissection/region al resection) 05/01/2022 10:15 AM CDT Narrative PATHOLOGY [facility] - 05/08/2022 9:34 AM CDT EPIC results best viewed via link to PDF [facility] [place] [address] Note to Patients: This report may contain [...] ALEXEY GIBBS Gender: ??M : ??1955 (Age: 66) Address: ??[address], [place], [place] ??[address] Hospital #: ??[id number] Taken:05/01/2022 Received:05/01/2022 Reported: 05/08/2022 Patient Type: BWC EP OP IN Client ?[facility] Service: Urology Location: Physician(s): ??Melissa Alatorre M.D. Diagnosis: A. ??Prostate, radical prostatectomy ? - Prostatic adenocarcinoma, Chuck score 3 + 4 = 7 (20% [...] the margin is 5 mm total, the Finksburg score of carcinoma at the margin is 3+4=7) ? - Pathologic stage: pT2N0 ? - See synoptic B. ??Lymph nodes, pelvic, dissection ? - No evidence of malignancy in one lymph node (0/1) [facility]/05/08/2022 09:34 By this signature, I attest that [...] ? Left to right: 4.4 cm ? Matthews to base: 3.7 cm ? Anterior to [...] B1-B2 Single lymph node, serially sectioned ?? cnewho/05/02/2022 11:41 PA(s): SHARI [place], CT (ASCP) ? CANCER CASE SUMMARY FOR CARCINOMA OF THE PROSTATE GLAND ? Procedure: ?Radical prostatectomy ? Prostate size: ?Weight: 33.9g ?Size: 4.4 x 3.7 x 2.5 cm ? Histologic Type: ?Ductal adenocarcinoma ? Histologic Grade: ?Grade group 2 (Finksburg Score 3+4=7) ?Percentage of Pattern 4 in [...] ?Right apical ?Right anterior ?Right posterior ? Finksburg Pattern at Positive Margin(s): ?Pattern 3 ?Pattern [...] interpretation for this case was performed at [facility], Department of Surgical Pathology, [address] [facility], [place] [id number], ??[place], [place] ??[address] ?? CLIA # [id number] The performance characteristics of some immunohistochemical stains, fluorescence in-situ hybridization tests and immunophenotyping by flow cytometry cited in this report (if any) were determined by the Surgical Pathology and Flow Cytometry Departments at [facility] as part of an ongoing clinical quality rn program and in compliance with federally mandated [...] Surgical Pathology and Flow Cytometry Departments of [facility]. ??It has not been cleared or approved by the U. S. Food and Drug Administration. IMAGES AND SCANNED DOCUMENTS, IF INCLUDED, ONLY VIEWABLE IN PDF VERSION OF REPORT Armen Rodrigues MD LAB PATHOLOGY ORDERABLES Final Result Performing Organization Address [facility] Co de Phone Number PATHOLOGY [facility] [phone] * POCT glucose (05/01/2022 8:30 AM CDT) Glucose, POC 177 70 - 199 mg/dL [facility] Comment: Interpretive Data Glucose is assumed to be non-fasting. Fasting Glucose reference ranges are: 0 - 150 years: ??70 mg/dL - 99 mg/dL Current interpretive data was last revised on 2014. POC Performer [id number] [facility] POC Device Number [id number] [facility] Blood 05/01/2022 8:30 AM CDT 05/01/2022 8:30 AM CDT Armen Rodrigues MD LAB POCT ORDERABLES - DEVICE Fi nal Result Performing Organization Address [facility] de Phone Number [facility] [address] [address] [facility] [place] [address] * POCT glucose (05/01/2022 6:20 AM CDT) Glucose, POC 122 70 - 199 mg/dL [facility] Comment: Interpretive Data Glucose is assumed to be non-fasting. Fasting Glucose reference ranges are: 0 - 150 years: ??70 mg/dL - 99 mg/dL Current interpretive data was last revised on 2014. POC Performer [id number] [facility] POC Device Number [id number] [facility] Blood 05/01/2022 6:20 AM CDT 05/01/2022 6:20 AM CDT Armen Rodrigues MD LAB POCT ORDERABLES - DEVICE Fi nal Result Performing Organization Address [facility] de Phone Number [facility] [address] [facility] [place] [address] * ABO / Rh Confirmation Testing (05/01/2022 6:16 AM CDT) ABO/Rh Confirmation A Negative FEDERICO ANALI Blood 05/01/2022 6:16 AM CDT 05/01/2022 6:31 AM CDT us Armen Rodrigues MD LAB BLOOD ORDERABLES Final Resu lt FEDERICO BRIONES [address] [facility] [place] [place] [address] documented in this encounter Visit Diagnoses Diagnosis [...] Given 05/02/2022 8:29 AM CDT 81 mg bupivacaine HCl (MARCAINE) 0.5 % (5 mg/mL) injection As needed, Starting on Sat05/01/22 at 0941, Intra-Op Given 05/01/2022 9:41 AM CDT 30 mL Surgical Site calcium carbonate (TUMS) chewable tablet 1,000 mg [...] Call MD for each episode of hypoglycemia. CUSTOMS COLLECTOR STATES GLUTOSE-15 CONTAINS GLUCOSE 40% W/W (50% [...] First dose on Sat05/01/22 at 2100, Indications: hyperlipidemiaIndications:hyperli pidemia Given 05/01/2022 9:37 PM CDT 10 mg [...] after each use. sodium chloride 0.9% irrigation As needed, Starting on Sat05/01/22 at 0941, Intra-Op Given 05/01/2022 9:41 AM CDT 1,000 mL Surgical Site documented in this encounter Active and Recently Administered Medications Times are shown in CDT. Scheduled Medication Order 04/30/2022 05/01/2022 05/02/2022 acetaminophen (TYLENOL) tablet 1,000 mg 1,000 mg, oral, Every 6 hours scheduled, First dose on Sat05/01/22 at 1245, Indications: Pain 1230 (Given - Provider: Yenifer Childs, RN)1842 (Given - Provider: Yenifer Childs, RN) 0046 (Given - Provider: Yaneth Sexton RN)0528 (Given - Provider: Yaneth Sexton RN) amLODIPine (NORVASC) tablet 5 mg 5 mg, oral, Every morning, First dose on Sat05/02/22 at 0900, Indications: hypertension 0829 (Given - Provid er: Kate Ferrer RN) aspirin enteric coated tablet 81 mg 81 mg, oral, Every morning, First dose on Sat05/02/22 at 0900, Do not crush, chew, cut, dissolve, open or otherwise manipulate tablet/capsule., Indications: prevention of thrombosis 0829 (Given - Provid er: Kate Ferrer RN) ceFAZolin (ANCEF) 1 gram/10 mL in sterile water (premix) 2,000 mg (COMPLETED) 2,000 mg, intravenous, at 400 mL/hr, Administer over 3 Minutes, Once, On Sat05/01/22 at 0645, For 1 dose, Pre-Op, Administer within 60 minutes of incision., Indications: Prophylaxis, Surgical 07 (Given - Provider: Robin Skinner MD) enoxaparin [...] Diabetes Mellitus 2136 (Given - Provider: Yaneth Sexton, EVELYN) insulin lispro (HumaLOG, ADMELOG) 100 unit/mL injection [...] Mellitus 1229 (Given - Provider: Yenifer Childs, EVELYN)1841 (Given - Provider: Yenifer Childs RN) 0828 (Not Given - Provider: Kate Ferrer RN - Reason: Order parameters not met) insulin lispro (HumaLOG, ADMELOG) 100 unit/mL injection 3 Units (COMPLETED) 3 Units, subcutaneous, Once, On Sat05/01/22 at 1100, For 1 dose, Phase I 1026 (Given - Provider: Amisha Garces, EVELYN) metFORMIN (GLUCOPHAGE) tablet 1,000 mg 1,000 mg, [...] dose on Sat05/01/22 at 2100, Indications: hypertension 2137 (Given - Provider: Yaneth Sexton RN) 0829 (Given - Provider: Kate Ferrer RN) pantoprazole DR (PROTONIX) extended release tablet 40 mg 40 mg, oral, Every morning, First dose on Sat05/02/22 at 0900, Do not crush, chew, cut, dissolve, open or otherwise manipulate tablet/capsule., Indications: Treatment of Non-Bleeding Gastric Disorder 08 (Given - Provid er: Kate Ferrer RN) rosuvastatin (CRESTOR) tablet 10 mg 10 mg, oral, Nightly, First dose on Sat05/01/22 at 2100, Indications: hyperlipidemia 213 (Given - Provider: Yaneth Sexton RN) sodium [...] floor. 0628 (New Bag - Provider: Brigid Montgomery, EVELYN)0711 (Rate/Dose Verify - Provider: Robin Skinner MD) Lactated Ringer's (LR) infusion 100 mL/hr, intravenous, Continuous, Starting on Sat05/01/22 at 1245 1205 (Continue to Inpatient Floor - Provider: Yenifer Childs, RN)1245 (Due)1256 (Continue to Inpatient Floor - Provider: Yenifer Childs, RN)1644 (New Bag - Provider: Yenifer Childs RN) 0352 (New Bag - Provider: Yaneth Sexton, RN)1538 (Due: Stopped) PRN Medication Order 04/30/2022 [...] Call MD for each episode of hypoglycemia. CUSTOMS COLLECTOR STATES GLUTOSE-15 CONTAINS GLUCOSE 40% W/W (50% W/V), Indications: hypoglycemic disorder famotidine (PEPCID) injection 20 mg (COMPLETED) 20 mg, intravenous, Administer over 2 Minutes, Once as needed, heartburn, Medication to be administered by the anesthesia staff (Anesthesiologist or VERIFYING SPECIALIST), Starting on Sat05/01/22 at 0601, For 1 dose, Pre-Op, Indications: gastroesophageal reflux disease, Heartburn, Heartburn Prevention, Reflux 0711 (Given - Provider: Robin Skinner MD) glucagon injection 1 mg 1 mg, [...] Adult IV push, administer over 15 seconds 0807 (Given - Provider: Yaneth Sexton, EVELYN) 3623 (Given - Provider: Yaneth Sexton RN) ondansetron (ZOFRAN) injection 4 mg(Linked Group 2) 4 mg, intravenous, Administer over 2 Minutes, Every 6 hours PRN, nausea, vomiting, if not tolerating PO, Starting on Sat05/01/22 at 1205, Indications: nausea and vomiting 1624 (Given - Provider: Yenifer Childs RN) ondansetron ODT (ZOFRAN-ODT) disintegrating tablet 4 mg(Linked Group 2) 4 mg, oral, Every 6 hours PRN, nausea, vomiting, Starting on Sat05/01/22 at 1205, Indications: nausea and vomiting 1624 (See Alternative - Provider: Yenifer Childs RN) oxybutynin (DITROPAN) tablet 5 mg 5 mg, [...] Call MD for each episode of hypoglycemia. CUSTOMS COLLECTOR STATES GLUTOSE-15 CONTAINS GLUCOSE 40% W/W (50% [...] Date acetaminophen (TYLENOL) tablet 500 mg 1 calcium carbonate (TUMS) maribell wable tablet 1,000 mg 05/01/2022 Carrier Fluids for Secondary Infusion - 0.9% Sodium Chloride 05/01/2022 ceFAZolin (ANCEF) 1 gram/10 mL in sterile water (premix) 2,000 mg 05/01/2022 dextrose (D10W) 10% bolus 250 mL 05/01/20 dextrose (GLUTOSE) 40 % gel 15 g 05/01/20 diphenhydrAMINE (BENADRYL) i njection 12.5 mg 1 05/01/2022 famotidine (PEPCID) injection 20 mg 1 05/01 fentaNYL (SUBLIMAZE) preserv ative free injection 25 mcg 1 05/01/2022 glucagon injection 1 mg 1 05/01/2022 hydrALAZINE (APRESOLINE) injection 5 mg 1 [...] 05/01/2022 oxybutynin (DITROPAN) tablet 5 mg 1 022 oxyCODONE (ROXICODONE) tablet 5 mg 1 2021 prochlorperazine (COMPAZINE) injection 5 mg 1 05/01/2022 ramelteon (ROZEREM) tablet 8 mg 1 scopolamine patch 72 hour 1 patch 1 022 sodium chloride 0.9% flush 0.5-20 mL 4 04/18 Lab Orders Without Results Count Last Ordered [...] 05/02/2022 documented in this encounter Care Teams Boiler House Mechanic Relationship Specialty Start Date End Date John Lozoya MD [address] [id number] PCP - General Family Medicine 04/03/22 documented as of this encounter
--- OUTSIDE RECORDS SUMMARY | 2024-11-07 09:28 | XMS_ITS | Encounter Summary ---
Author Organization [facility] Healthcare Address [address] [place] [address] Care Team Providers Care Night Guard Name Role Phone John Lozoya MD Primary Care Provider [phone] Reason for Visit * Auth/Cert Specialty Diagnoses / Procedures Referred By Contac t Referred To Contact Diagnoses Prostate cancer (HCC) Prostate cancer (CMS/HCC) (HCC) [C61] Procedures MA LAP,PROSTATECTOMY,RADICAL,W/NERVE SPARE,INCL ROBOTIC XI PROSTATECTOMY - LAPAROSCOPIC ROBOTIC ASSISTED XI ROBOTIC PELVIC LYMPH NODE Referral ID Status Reason Start Date Expiration Date Visits Re quested Visits Authorized [id number] 1 1 Encounter Details Date Type Department Care Team (Late st Contact Info) Description 05/01/2022 7:11 AM CDT Anesthesia Event [facility] Operating Room [address] [place] [address] Robin Skinner MD [address] [place] [address] Mavis Bernard MD [address] [place] [address] Anesthesia Record Procedure Summary Procedure Name Responsible Anesthesiologist Anesthesia Start Time Anesthesia Stop Time XI PROSTATECTOMY - LAPAROSCOPIC ROBOTIC ASSISTED (Perineum) Robin Skinner MD 05/01/22 0711 05/01/22 1015 Events Date Time Event Comment 05/01/2022 0525 In Preop 0650 AN Equip Check 0659 0711 An Start 0717 In Room 0718 An Start Data 0722 An Induction The patient was reevaluated immediately before moderate or deep sedation use and before anesthesia induction. 0725 An Intubation 0729 Anesthesia Ready 0738 Proc Start 0738 Incision Start 1005 An Extubation 1005 Proc Fin 1009 Out of Room 1009 an stop data 1014 Handoff to RN I completed my handoff [...] Patient disposition at the time of handoff: No value filed. 1015 An Stop Meds Name Total midazolam 2 mg/2 mL 2 mg fentaNYL PF 100 mcg lidocaine 2 % PF 100 mg propofol 200 mg rocuronium 50 mg HYDROmorphone 2 mg/mL 1 mg neostigmine syringe 1 mg/mL 2 mg glycopyrrolate 0.4 mg ondansetron PF 8 mg dexamethasone 4 mg/ml 4 mg ceFAZolin (ANCEF) 1 gram/10 mL in steril e water (premix) 2,000 mg 2,000 mg famotidine (PEPCID) injection 20 mg 20 m g Lactated Ringer's (LR) infusion 0 mL * Agents Name O2 N2O Air Sevoflurane Inspired Sevoflurane * Blood No blood administrations on file. Lines, Drains, and Airways Type Details Placement Removal Urethral Catheter Placement Date: 05/01/22; Placement Time: 0737; Inserted by: Dr. Rodrigues; Type: Double-lumen; Balloon Size: 10 mL; Urine Returned: Yes 05/01/22 0737 by Collin Martell, EVELYN Peripheral IV Placement Date: 05/01/22; Placement Time: 0628; Catheter Size: 20 G; Orientation: Anterior, Left; Location: Forearm; Site Prep: Chlorhexidine; Insertion Attempts: 1; Removal Date: 05/02/22; Removal Time: 1037 05/01/22 0628 by Brigid Montgomery, EVELYN 05/02/22 1037 by Xin Ansari RN ETT Placement Date: 05/01/22; Placement Time: 0733 (created via procedure documentation); Mask Ventilation: 1; Technique: Video laryngoscopy; Type: ETT - single; Cuffed: Yes; Laryngoscope: Aurea; Blade Size: 4; Location: Oral; Insertion Attempts: 1; Placement Verification: Auscultation; Removal Date: 05/01/22; Removal Time: 1005 05/01/22 0733 by Robin Skinner MD 05/01/22 1005 by Robin Skinner MD RETIRED Surgical Site 05/01/22; 0941; Abdomen; 5X, Dermabond; 10/20/24 (Retired LDA, Removed/Completed by [employer] with LDA Utility); 1213 (Retired LDA, Removed/Completed by [employer] with LDA Utility) 05/01/22 0941 by Collin [...] on file 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 OPERATING [facility]OM / [facility] OPERATING [facility]OM Anesthesia Start: 710 Anesthesia Stop: 1014 Procedures: XI PROSTATECTOMY - LAPAROSCOPIC ROBOTIC ASSISTED (N/A Perineum) XI ROBOTIC PELVIC LYMPH NODE (Bilateral Pelvis) Diagnosis: Prostate cancer (CMS/HCC) (HCC) (Prostate cancer (CMS/HCC) (HCC) [C61]) Surgeons: Armen Rodrigues MD Responsible Provider: Anesthesia Type: general ASA Status: 2 Anesthesia Type: general Last vitals BP 137/68 Pulse 57 Temp 36.8 ??C (98.24 ??F) Resp 12 SpO2 97% Anesthesia Post Evaluation Patient location during evaluation: PACU Patient participation: complete - patient participated 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 * Anesthesia Procedure Notes - Robin Skinner MD - 05/01/2022 7:33 AM CDTAssociated Order(s): Airway Airway Patient location: OR Urgency: elective Indications for airway management: anesthesia Difficult airway: no Staff: Placed by: Anesthesiologist: Robin Skinner MD Emergent airway documentation: Risks and benefits discussed: yes Consent obtained: yes Consent given by: patient Airway prep: Preoxygenated: yes Patient position: sniffing MILS maintained throughout: yes Mask difficulty assessment: 1 - vent by mask Sedation level during airway: GA Final airway details: Final airway type: endotracheal airway Tube type: ETT Cuffed: yes Technique used for successful ETT placement: video laryngoscopy Devices/Methods used in placement: intubating stylet Insertion site: oral Blade type: Aurea Video blade type: Sen Blade size: 4 Cormack-Lehane (video): grade I - full view of glottis Cuff volume: 7 mL Cuff inflated with: air ETT to gums: 23 cm Placement verified by: auscultation Airway secured with: silk tape Number of attempts: 1 * Anesthesia Preprocedure Evaluation - Robin Skinner MD - 04/27/2022 3:10 PM CDT Images from the original note were not included. [facility] Preoperative Assessment and Planning Preoperative Evaluation Record Evaluation type/location: [facility] Planned procedure site: [facility] OR Date: 04/27/22 Anesthesia Evaluation Alexey Gibbs [...] + Other arrhythmia - RBBB. Pertinent negatives: RI ; valvular heart disease; atrial fibrillation; pacemaker/ICD; DVT/PE; negative for CHF; bare metal stent(s) and unknown stent(s) type Comments: Follows with Dr. Ehsan Scott, cardiology at [facility] Respiratory Pertinent negatives: COPD; asthma; sleep [...] have a full 7 days off Aspirin. [employer] staff message sent to surgeon's office. Please call the CPAP attending ([phone]) with any questions. Patient's COVID19 status is: [...] ~ with Dr. Ehsan Meléndez, Cardiology at [facility]. Will retrieve results and most recent OVN for chart completion<< Preoperative evaluation performed by Reta Mclaughlin NP on 04/27/22 at 3:16 PM. . Follow up note 1 Labs reviewed and are significant for: Creatinine of 1.5 with Creatinine Clearance of 52.5 ml/min. Serum creatinine was 1.45 on 06/14/2016. Urine culture shows contamination. [employer] message sent to surgeon's office with urine [...] form) CPAP assessment complete. Follow-up completed by: Martnia Berg NP on 04/30/22 at 9:20 AM [...] Medication protocol when under care of a BRANDING SPECIALIST Planned anesthesia: General Team communication plan: [...] Procedure Name Priority Date/Time Associated Diagnosis Comments MA AN PROCEDURE PLACEHOLDER Routine 05/01/2022 7:33 AM CDT MA AN ELECTIVE ENDOTRACHEAL AIRWAY Routine 05/01/2022 7:33 AM CDT documented in this encounter Results * MA AN ELECTIVE ENDOTRACHEAL AIRWAY, MA AN PROCEDURE PLACEHOLDER (05/01/2022 7:33 AM CDT) Narrative Robin Skinner MD - 05/01/2022 7:33 AM CDT Robin Skinner MD ? 05/01/2022 ??7:33 AM Airway Patient location: OR Urgency: elective Indications for airway management: anesthesia Difficult airway: no Staff: Placed by: Anesthesiologist: Robin Skinner MD Emergent airway documentation: Risks and benefits discussed: yes Consent obtained: yes Consent given by: patient Airway prep: Preoxygenated: yes Patient position: sniffing MILS maintained throughout: yes Mask difficulty assessment: 1 - vent by mask Sedation level during airway: GA Final airway details: Final airway type: endotracheal airway Tube type: ETT Cuffed: yes Technique used for successful ETT placement: video laryngoscopy Devices/Methods used in placement: intubating stylet Insertion site: oral Blade type: Aurea Video blade type: Sen Blade size: 4 Cormack-Lehane (video): grade I - full view of glottis Cuff volume: 7 mL Cuff inflated with: air ETT to gums: 23 cm Placement verified by: auscultation Airway secured with: silk tape Number of attempts: 1 Robin Skinner MD ANESTHESIA ORDERABLES Final Result documented in this encounter Visit [...] of incision., Indications: Prophylaxis, SurgicalIndications:Prophylaxis, Surgical Given 05/01/2022 7:29 AM CDT 2,000 mg dexAMETHasone (DECADRON) 4 mg/mL injection intravenous, Administer over 2 Minutes, As needed, Starting on Sat05/01/22 at 0728, Anesthesia Intra-op Given 05/01/2022 7:28 AM CDT 4 mg famotidine (PEPCID) injection 20 mg 20 mg, intravenous, Administer over 2 Minutes, Once as needed, heartburn, Medication to be administered by the anesthesia staff (Anesthesiologist or BRANDING SPECIALIST), Starting on Sat05/01/22 at 0601, For 1 dose, Pre-Op, Indications: gastroesophageal reflux disease, Heartburn, Heartburn Prevention, RefluxIndications:gastroesophagea l reflux disease,Heartburn,Heartburn Prevention,Reflux Given 05/01/2022 7:11 AM CDT 20 mg fentaNYL (SUBLIMAZE) preservative free injection intravenous, As needed, Starting on Sat05/01/22 at 0723, Anesthesia Intra-op Given 05/01/2022 7:23 AM CDT 100 mcg glycopyrrolate (ROBINUL) injection intravenous, Administer over 1 Minutes, As needed, Starting on Sat05/01/22 at 0957, Anesthesia Intra-op Given 05/01/2022 9:57 AM CDT 0.4 mg HYDROmorphone (DILAUDID) injection intravenous, Administer over 2 Minutes, As needed, Starting on Sat05/01/22 at 0748, Anesthesia Intra-op Given 05/01/2022 9:46 AM CDT 0.2 mg Given 05/01/2022 9:43 AM CDT 0.2 mg Given 05/01/2022 8:28 AM CDT 0.2 mg Lactated Ringer's (LR) infusion 30 mL/hr, intravenous, Continuous, Starting on Sat05/01/22 at 0645, For 4 hours, Pre-Op, Use a 500 ml bag for End Stage Renal Disease Patients. Discontinue if fluid still running once patient arrives to floor. Rate/Dose Verify 05/01/2022 7:11 AM CDT 30 mL/hr New Bag 05/01/2022 6:28 AM CDT 30 mL/hr 30 mL/hr lidocaine (XYLOCAINE) 20 mg/mL (2 %) preservative free injection intravenous, As needed, Starting on Sat05/01/22 at 0722, Anesthesia Intra-op Given 05/01/2022 7:22 AM CDT 100 mg midazolam (VERSED) 1 mg/mL injection intravenous, As needed, Starting on Sat05/01/22 at 0711, Anesthesia Intra-op Given 05/01/2022 7:11 AM CDT 2 mg neostigmine injection intravenous, Administer over 3 Minutes, As needed, Starting on Sat05/01/22 at 0957, Anesthesia Intra-op Given 05/01/2022 9:57 AM CDT 2 mg ondansetron (ZOFRAN) injection intravenous, Administer over 2 Minutes, As needed, Starting on Sat05/01/22 at 0711, Anesthesia Intra-op Given 05/01/2022 9:46 AM CDT 4 mg Given 05/01/2022 7:11 AM CDT 4 mg propofoL (DIPRIVAN) 10 mg/mL IV intravenous, As needed, Starting on Sat05/01/22 at 0723, Anesthesia Intra-op Given 05/01/2022 9:46 AM CDT 50 mg Given 05/01/2022 7:23 AM CDT 150 mg rocuronium (ZEMURON) injection intravenous, As needed, Starting on Sat05/01/22 at 0724, Anesthesia Intra-op Given 05/01/2022 7:24 AM CDT 50 mg documented in this encounter Care Teams Night Guard Relationship Specialty Start Date End Date John Lozoya MD [address] [address] PCP - General Family Medicine 04/03/22 documented as of this encounter
--- OUTSIDE RECORDS SUMMARY | 2024-11-07 09:28 | XMS_ITS | Encounter Summary ---
Author Organization [facility] [facility] Address [address] [place] [address] Phone Care Team Providers Care Lead Enterprise Architect Name Role Phone John Lozoya MD Primary Care Provider [phone] Reason for Visit * Reason Comments Prostate Cancer * Consultation (Routine) - Closed Specialty Diagnoses / Procedures Referred By Wade renner Referred To Contact Urology Diagnoses Prostate cancer (HCC) Referral, Self Armen Rodrigues MD [address] [place] [address] Phone: tel: fax: Referral ID Status Reason Start Date Expiration Date V isits Requested Visits Authorized [id number] Closed Specialty Services Required 04/03/2022 05/03/2023 99 99 Encounter Details Date Type Department Care Team (Late st Contact Info) Description 04/06/2022 2:50 PM CDT Office Visit 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 male w/ prostate cancer - Location: prostate - Quality: asymptomatic - Severity: intermediate risk (Chuck 3+4=7), PSA 6.8 ng/mL - Duration: diagnosed this past month - Modifying factors: OS urologist recommended radiation for treatment - Associated signs/symptoms: no hematuria or UTI symptoms Subjective The patient's Past Medical, Social and Family History have been reviewed and can be found in the chart. Review of systems: A complete review of systems was conducted and was negative except for as explicitly listed in the History of Present Illness. Objective Physical Examination: No significant findings Lab/Radiology/Diagnostic Review: MRI ([facility]) 11/2021 - PIRADS 5 lesion, 26g I have reviewed and independently examined the MRI images. My findings are given above with the associated imaging tests. Review of Records: I have reviewed and independently examined the medical records of this patient provided by Dr. Lozoya and Dr. Hurd. This information was incorporated into the medical decision-making provided in the assessment and plan for this patient. Assessment/Plan It was a pleasure speaking with Alexey Gibbs today. Alexey Gibbs is a 66 y.o. male with newly diagnosed prostate cancer - We discussed the natural history of prostate cancer, with particular focus on the risk stratification of his disease based on PSA and Chuck score. - We discussed treatment options including: active surveillance, surgery, or radiation - We discussed the results of PIVOT, SPCG-4, and PROTECT studies - We discussed the risks and perioperative expectations of robotic prostatectomy - Specifically, we discussed the expectations of urinary and sexual function - We will plan for CPAP and robotic prostatectomy on 05/01/2022. Thank you for allowing us to participate in the care of this patient. Please do not hesitate to contact us should you have any questions or concerns at [phone]. documented in this encounter Plan of Treatment Not on file documented as of this encounter Visit Diagnoses Diagnosis Prostate cancer (HCC) Malignant neoplasm of prostate documented in this encounter Orders Outpatient Referral Count Last Ordered Date Fir st Ordered Date AMB REFERRAL TO UROLOGY 1 04/06/2022 documented in this encounter Care Teams Lead Enterprise Architect Relationship Specialty Start Date End Date John Lozoya MD [address] [address] PCP - General Family Medicine 04/03/22 documented as of this encounter
--- OUTSIDE RECORDS SUMMARY | 2024-11-07 09:28 | XMS_ITS | Encounter Summary ---
Author Organization [facility] Facility Care Team Providers Care Flight Data Technician Name Role Phone Unavailable Primary Care Provider Unavailabl e Encounter Details Date Type Department Care Team (Latest Contact Info) Description 10/17/2012 7:41 AM TEACHING ASSOCIATE - 10/27/2012 2:16 PM TEACHING ASSOCIATE Hospital Encounter [facility] Devin Scales Jr., MD [address] [place] [address] Ehsan Meléndez MD [address] [place] [address] [address] [place] [address] Coronary atherosclerosis of [place] coronary artery; Other B-complex deficiencies; Other and unspecified hyperlipidemia; Type 2 or unspecified type diabetes mellitus; Constipation; Esophageal reflux; Essential hypertension; Vitamin D deficiency; Occlusion and stenosis of carotid artery; Occlusion and stenosis of multiple and bilateral precerebral arteries; Family history of other cardiovascular diseases; Encounter for long-term (current) use of insulin (HCC); Postsurgical percutaneous transluminal coronary angioplasty status Social History Tobacco Use Types Packs/Day Years Used Date Smoking Tobacco: Never Assessed Sex and Gender Information Value Date Recorded Sex Assigned at Not on file 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 Gender Identity Not on file Sexual Orientation Not on file documented as of this encounter Last Filed Vital Signs Vital Sign Reading Time Taken Comments Blood Pressure 127/81 10/27/2012 11:51 AM TEACHING ASSOCIATE Pulse 80 10/27/2012 11:51 AM TEACHING ASSOCIATE Temperature - - Respiratory Rate - - Oxygen Saturation 100% 10/27/2012 11:51 AM TEACHING ASSOCIATE Inhaled Oxygen Concentration - - Weight 86 kg (189 lb 7.8 oz) 10/27/2012 1:00 AM TEACHING ASSOCIATE Height 183 cm (6' 0.05 ) 10/17/2012 2:53 PM TEACHING ASSOCIATE Body Mass Index 25.67 10/17/2012 2:53 PM TEACHING ASSOCIATE documented in this encounter Plan of Treatment Not on file documented as of this encounter Visit Diagnoses Diagnosis Coronary atherosclerosis of [place] coronary artery Other B-complex deficiencies Other and unspecified hyperlipidemia Type 2 or unspecified type diabetes mellitus Constipation Unspecified constipation Esophageal reflux Essential hypertension Unspecified essential hypertension Vitamin D deficiency Occlusion and stenosis of carotid artery Occlusion and stenosis of multiple and bilateral precerebral arteries Family history of other cardiovascular diseases Encounter for long-term (current) use of insulin (HCC) Encounter for long-term (current) use of insulin Postsurgical percutaneous transluminal coronary angioplasty status documented in this encounter
--- OUTSIDE RECORDS SUMMARY | 2024-11-07 09:28 | XMS_ITS | Encounter Summary ---
Author Organization [facility] Facility Care Team Providers Care Assembled Wood Products Repairer Name Role Phone Unavailable Primary Care Provider Unavailabl e Encounter Details Date Type Department Care Team (Latest Contact Info) Description 11/04/2012 11:33 AM DRAPERY HEAD FORMER Hospital Encounter [facility] Ehsan Waters MD [address] [place] [address] [address] [place] [address] Coronary atherosclerosis of [place] coronary artery; Functional disturbance following cardiac surgery Social History Tobacco Use Types Packs/Day Years Used Date Smoking Tobacco: Never Assessed Sex and Gender Information Value Date Recorded Sex Assigned at Not on file 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
--- OUTSIDE RECORDS SUMMARY | 2024-11-07 09:28 | XMS_ITS | Encounter Summary ---
Author Organization [facility] [employer] [facility] Address [address] [place] [address] Phone Care Team Providers Care Tile And Marble Setter Name Role Phone John Lozoya MD Primary Care Provider [phone] Encounter Details Date Type Department Care Team (Late st Contact Info) Description 04/03/2022 Telephone [facility]) - [facility] Urology [address] [facility] Advanced Medicine [address] [place] [address] [place] [address] Shaye Marte CNA Social History Tobacco Use Types Packs/Day Years Used Date Smoking Tobacco: Never Sex and Gender Information Value Date Recorded Sex Assigned at Not on file 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 Hurd office, made them aware I had faxed a request for records multiple times withnothing sent over. Stated patient has an apt today and without records they re delaying patient care. She stated they will get them faxed LC * Telephone Encounter - Shaye Marte CNA - 04/03/2022 2:52 PM CDT Images from the original note were not included. MRI pushed and consulted, report scanned in chart under MEDIA, waiting on records * Telephone Encounter - Shaye Marte CNA - 04/03/2022 11:51 AM CDT ----- Message from Shaye Marte CNA sent at 04/03/2022 11:47 AM CDT ----- Spoke to patient, he stated he just picked up Imaging on CD, report, and pathology report. I also sent a request to [facility] to push MRI, fax report, and Dr. Santiago Hurd to fax records as well. Registration completed, insurance added ----- Message ----- From: Armen Rodrigues MD Sent: 04/01/2022 8:39 AM CDT To: Margarita Cid Merissa, # Margarita/Hanane: This is the father in law of our residency/fellowship coordinators for the urology program. I am not 100% sure this is the right chart. Alexey Gabriel Gibbs 1955 [address] phone # = [phone] He was diagnosed with prostate cancer. We need to get his prostate biopsy report and his recent prostate MRI images. Can we set him up to see us on 04/06 afternoon at [facility] (if we can get the records in time) or 04/20 at [facility] or 04/23 at [facility]? Thank you! - EK documented in this encounter Plan of Treatment Not on file documented as of this encounter Visit Diagnoses Not on filedocumented in this encounter Care Teams Tile And Marble Setter Relationship Specialty Start Date End Date John Lozoya MD [address] [address] PCP - General Family Medicine 04/03/22 documented as of this encounter
--- OUTSIDE RECORDS SUMMARY | 2024-11-07 09:28 | XMS_ITS | Encounter Summary ---
Author Organization [facility] Facility Care Team Providers Care [facility] Director Name Role Phone Unavailable Primary Care Provider Unavailabl e Encounter Details Date Type Department Care Team (Late st Contact Info) Description 11/25/2012 - 11/25/2012 11:59 PM COUNTER CHECKER Hospital Encounter [facility] Laurie Scales Jr., MD [address] [place] [address] Other abnormal glucose Social History Tobacco Use Types Packs/Day Years Used Date Smoking Tobacco: Never Assessed Sex and Gender Information Value Date Recorded Sex Assigned at Not on file 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 TASIA MENJIVAR M.D. HO FINAL REPORT The radiology attending physician has personally reviewed this study, and has reviewed and/or edited this written report and agrees with it. ACC# ??Date Time ??Exam [id number] Nov 25, 2012 10:12:00 50362 Chest 2 views Frontl & Lat EXAMINATION: ?? Chest 2 views IMPRESSION: ?Comparison is made to the prior exam 10/25/2012. Median sternotomy wires and mediastinal clips are again noted. The lungs are clear without focal consolidation, pneumothorax, or pleural effusion. ?? The cardiac and mediastinal contours are normal. Requested By: LAURIE GUEVARA ??M.D. Dictated By: ?? Melissa BUSTILLOS ??on Nov ??2012 ??3:20P This document has been electronically signed by: MADI RAMÍREZ M.D. on Nov ??2012 ??4:48P Procedure Note Provider, Robert, - 04/25/2017 Melissa VINCENT M.D. HO FINAL REPORT The radiology attending physician has personally reviewed this study, and has reviewed and/or edited this written report and agrees with it. ACC# Date Time Exam [id number] Nov 25, 2012 10:12:00 [id number] Chest 2 views Frontl & Lat EXAMINATION: Chest 2 views IMPRESSION: Comparison is made to the prior exam 10/25/2012. Median sternotomy wires and mediastinal clips are again noted. The lungs are clear without focal consolidation, pneumothorax, or pleural effusion. The cardiac and mediastinal contours are normal. Requested By: LAURIE GUEVARA M.D. Dictated By: Melissa BUSTILLOS on Nov 25 2012 3:20P This document has been electronically signed by: MADI RAMÍREZ M.D. on Nov 25 2012 4:48P us Historical Provider IMSteven XR PROCEDURES Final R esult documented in this encounter Visit Diagnoses Diagnosis Other abnormal glucose documented in this encounter
--- OUTSIDE RECORDS SUMMARY | 2024-11-07 09:28 | XMS_ITS | Encounter Summary ---
Author Organization [facility] Address [address] [place] [address] Phone Care Team Providers Care Bottom Cager Name Role Phone John Lozoya MD Primary Care Provider [phone] Reason for Referral * Consultation (Routine) - Closed Specialty Diagnoses / Procedures Referred By Wade t Referred To Contact Urology Diagnoses Prostate cancer (HCC) Referral, Self Panfilo Rodrigues MD [address] [place] [address] Phone: tel: fax: Referral ID Status Reason Start Date Expiration Date V isits Requested Visits Authorized [id number] Closed Specialty Services Required 04/03/2022 05/03/2023 99 99 Question Answer Please select the performing region: [facility] (All Locations) [[id number]] To provider: PANFILO RODRIGUES [[id number]] # of visits: 1 Comments Referred to Panfilo Rodrigues MD specifically Encounter Details Date Type Department Care Team (Late st Contact Info) Description 04/03/2022 Orders Only [facility] ([facility]) - [facility] U[facility] [address] [facility] [address] [place] [address] [place] [address] Referral, Self Prostate cancer (CMS/HCC) (HCC) (Primary Dx) Social History Tobacco Use Types Packs/Day Years Used Date Smoking Tobacco: Never Sex and Gender Information Value Date Recorded Sex Assigned at Not on file 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 Gender Identity Not on file Sexual Orientation Not on file documented as of this encounter Plan of Treatment Scheduled Referrals Name Type Priority Associated Diagnoses Order Schedule Ambulatory referral to Urology Outpatient Referral Routine Prostate cancer (CMS/HCC) Expected: 04/17/2022 (Approximate), Expires: 04/03/2023 documented as of this encounter Visit Diagnoses Diagnosis Prostate cancer (HCC)- Primary Malignant neoplasm of prostate documented in this encounter Care Teams Bottom Cager Relationship Specialty Start Date End Date John Lozoya MD [address] [address] PCP - General Family Medicine 04/03/22 documented as of this encounter
--- OUTSIDE RECORDS SUMMARY | 2024-11-07 09:28 | XMS_ITS | Encounter Summary ---
Author Organization [facility] Facility Care Team Providers Care Atlassian Administrator Name Role Phone Unavailable Primary Care Provider Unavailabl e Encounter Details Date Type Department Care Team (Latest Contact Info) Description 07/01/2009 11:14 AM CDT - 07/02/2009 11:25 AM CDT Hospital Encounter [facility] Michael Prince MD [address] [facility] [address] [place] [address] Coronary atherosclerosis of [place] coronary artery; Other and unspecified angina pectoris; Encounter for long-term (current) use of aspirin; Essential hypertension; Type 2 or unspecified type diabetes mellitus; Other and unspecified hyperlipidemia; Mckoy's esophagus; Cardiac complication; Dissection of coronary artery; Cardiac catheterization as the cause of abnormal reaction of patient, or of later complication; Place of occurrence, residential institution Social History Tobacco Use Types Packs/Day Years Used Date Smoking Tobacco: Never Assessed Sex and Gender Information Value Date Recorded Sex Assigned at Not on file 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 Gender Identity Not on file Sexual Orientation Not on file documented as of this encounter Plan of Treatment Not on file documented as of this encounter Visit Diagnoses Diagnosis Coronary atherosclerosis of [place] coronary artery Other and unspecified angina pectoris Encounter for long-term (current) use of aspirin Essential hypertension Unspecified essential hypertension Type 2 or unspecified type diabetes mellitus Other and unspecified hyperlipidemia Cmkoy's esophagus Cardiac complication Cardiac complications Dissection of coronary artery Cardiac catheterization as the cause of abnormal reaction of patient, or of later complication Place of occurrence, residential institution documented in this encounter
--- OUTSIDE RECORDS SUMMARY | 2024-11-07 09:28 | XMS_ITS | Encounter Summary ---
Author Organization [facility] Address [address] [place] [address] Care Team Providers Care Software Test Engineer Name Role Phone Unavailable Primary Care Provider Unavailabl e Encounter Details Date Type Department Care Team (Late st Contact Info) Description 05/29/2016 3:47 PM CDT - 05/29/2016 11:59 PM CDT Hospital [facility] MD [address] [address] Disorder of kidney and ureter; Gross hematuria Social History Tobacco Use Types Packs/Day Years Used Date Smoking Tobacco: Never Sex and Gender Information Value Date Recorded Sex Assigned at Not on file Legal Sex Male 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 RESULT: The right and left kidneys measure 10.6 and 11.1 cm in long axis, respectively. There is a 2.2 x 1.6 x 2.5 cm hypoechoic lesion in the mid to upper pole of the right kidney which indeterminate. ??There is no evidence of hydronephrosis. ??The urinary bladder is unremarkable. IMPRESSION: 1. ??2.5 CM INDETERMINATE HYPOECHOIC LESION IN THE MID TO UPPER POLE OF THE RIGHT KIDNEY. ??CT MAY BE INDICATED FOR FURTHER EVALUATION. 2. OTHERWISE NORMAL RENAL ULTRASOUND. Interpreting Physician: ??DR ELIUD MCDERMOTT M.D. ??Read on: ??May 29 2016 4:43P Transcribed by: ??ylmarie ??On: May 29 2016 ??5:07P Approved Electronically by: ??SHARRON Torres, DR KLINE ??on: ??May 29 2016 5:35P Attending: ??JO ANN MEYERS Requesting: ??DR JO ANN MEYERS Requesting Fax: ??[phone] Attending Fax: ??-- Attending ID: ??[id number] Requesting ID: ??[id number] Report To 1 ID: ??[id number] Report To 1 Name: ??JO ANN MEYERS Report To 1 FAX: ??-- NextGen Order #: Procedure Note Provider, MD Robert - 03/20/2017 Kidney(s) [id number] Acc#: [id number] DATE OF EXAM: May 29 2016 CLINICAL HISTORY: Gross hematuria. RESULT: The right and left kidneys measure 10.6 and 11.1 cm in long axis,respectively. There is a 2.2 x 1.6 x 2.5 cm hypoechoic lesion in the midto upper pole of the right kidney which indeterminate. There is noevidence of hydronephrosis. The urinary bladder is unremarkable. IMPRESSION: 1. 2.5 CM INDETERMINATE HYPOECHOIC LESION IN THE MID TO UPPER POLE OF THERIGHT KIDNEY. CT MAY BE INDICATED FOR FURTHER EVALUATION. 2. OTHERWISE NORMAL RENAL ULTRASOUND. Interpreting Physician: DR ELIUD MCDERMOTT M.D. Read on: May 29 20164:43P Transcribed by: ylmarie On: May 29 2016 5:07P Approved Electronically by: DR ELIUD MCDERMOTT M.D. on: May 29 20165:35P Attending: JO ANN MEYERS Requesting: DR JO ANN MEYERS Requesting Attending Fax: -- Attending ID: [id number] Requesting ID: [id number] Report To 1 ID: [id number] Report To 1 Name: JO ANN MEYERS Report To 1 FAX: -- NextGen Order #: us Historical Provider MD JONES US PROCEDURES Final R esult documented in this encounter Visit Diagnoses Diagnosis Disorder of kidney and ureter Unspecified disorder of kidney and ureter Gross hematuria documented in this encounter
== END 2024-11-02 08:48 | disposition home or self-care (01) ==
PROVIDERS: PCP Family Medicine; Referring Provider Internal Medicine Gastroenterology; Visit Provider Internal Medicine Gastroenterology
PROC: 0DJ08ZZ Inspection of Upper Intestinal Tract, Via Natural or Artificial Opening Endoscopic (ICD-10-PCS; CPT 43235; principal; 2024-11-02 08:00)
DX: K22.70 Barrett's esophagus without dysplasia (principal); K29.30 Chronic superficial gastritis without bleeding; K44.9 Diaphragmatic hernia without obstruction or gangrene; E11.9 Type 2 diabetes mellitus without complications; Z79.84 Long term (current) use of oral hypoglycemic drugs; Z95.5 Presence of coronary angioplasty implant and graft; Z95.1 Presence of aortocoronary bypass graft
CPT/HCPCS: 43239; 82948; 88305; J2003; J2704; J7120